=== PATIENT | male | born 1945 | race Caucasian/White ===

== ENCOUNTER 2021-01-19 09:23 | Outpatient (REF) | payer MEDICARE, SELFPAY ==
--- NOTE | 2021-01-19 09:27 | EMG_ITS ---
Bilateral median and ulnar motor and sensory studies were performed. Bilateral radial sensory studies were performed and paraspinal muscles were tested. IMPRESSION: 1. [id number] bilateral median neuropathy across carpal tunnel. 2. Mild left ulnar neuropathy across cubital tunnel. MD GRACIELA Todd/CORTES / [id number]
== END 2021-01-19 09:24 | disposition home or self-care (01) ==
LOC: HO.NEURO 09:23
PROVIDERS: Visit Provider Internal Medicine
DX: R20.0 Anesthesia of skin (principal)
CPT/HCPCS: 95886; 95911

== ENCOUNTER → 2021-01-24 09:07 | Outpatient (REF) | payer MEDICARE, SELFPAY ==
--- NOTE | 2021-01-24 09:18 | CA_ITS ---
Transthoracic Echocardiogram Patient (Last, First, Middle): Edmundo Bullock J Gender: Male Date of : 1945 Age: 75 Procedure Date: 01/24/2021 Procedure Type: Transthoracic Echocardiogram Location: OP Height: 170.18 cm Weight: 104.33 kg BSA: 2.15 m2 Heart Rate: bpm BP: 130 / 78 mmHg Weather Forecaster: HOLLY Referring MD: Adebayo Plunkett MD Supervisor Braiding: Juan Hwang MD Symptoms: I10 - Essential (primary) hypertension Study Quality: Fair ECG Rhythm: Sinus Conclusions: - 1. Normal LV systolic function with possible pseudonormal filling pattern 2. At least moderate eccentric mitral regurgitation, could be underestimated due to the jet direction 3. Normal RV systolic pressure 4. No gross pericardial effusion Findings Left Ventricle Normal left ventricular size, thickness, and systolic function. The visually estimated ejection fraction is between 65-70%. Spectral Doppler is indicative of a pseudonormal filling pattern. Right Ventricle Normal right ventricular cavity size and systolic function. Atria The left atrium is likely dilated. There is no evidence of interatrial shunt. The right atrium is normal in size. Aortic Valve Normal aortic valve structure and function. There is no aortic valve stenosis. There is no aortic valve regurgitation. Mitral Valve There is mild anterior and posterior mitral leaflet thickening. There is moderate mitral valve regurgitation. The mitral regurgitation jet is directed anteriorly. There is no mitral valve stenosis. Pulmonic Valve The pulmonic valve is likely normal. Tricuspid Valve Likely normal tricuspid valve structure and function. There is trace tricuspid valve regurgitation. The right ventricular systolic pressure is normal. The right ventricular systolic pressure is 23 mmHg. Normal right atrial pressure. There is no evidence of pulmonary hypertension. Great Vessels All visible segments of the aorta are normal in size. The pulmonary artery was not well visualized. Venous The inferior vena cava is normal in size and collapses greater than 50% with inspiration. Pericardium/Pleural There is no evidence of pericardial effusion. Prior Study Comparison No prior study available for comparison. Recommendations, Care & Conclusions Consider a MIRZA if clinically appropriate. Measurements M-Mode Liner Measurements Normals - Women/Men IVSd: 1.48 0.6-0.9/0.6-1.0 cm LVIDd: 5.26 3.9-5.3/4.2-5.9 cm LVIDd Index: 2.45 1.9-3.2 cm/m2 LVIDs: 2.87 2.0-3.8 cm LVPWd: 1.13 0.6-0.9/0.6-1.0 cm LV Mass: 355.59 67-162/88-224g LV Mass Index: 165.39 43-95/49-115 g/m2 M-Mode Volumes LV EDV: 133.00 LV ESV: 31.40 2D Linear Measurements IVSd: 0.86 0.6-0.9/0.6-1.0 cm LVIDd: 5.41 3.9-5.3/4.2-5.9 cm LVIDd Index: 2.52 2.4-3.2/2.2-3.1 cm/m2 LVIDs: 3.01 2.0-3.6 cm LVPWd: 0.88 0.7-1.1 cm Ao Root: 2.90 2.1-3.5 cm LA Diam: 4.10 2.7-3.8/3.0-4.0 cm LAIDs Index: 1.91 1.5-2.3 cm/m2 LV Mass: 215.47 67-162/88-224 g LV Mass Index: 100.22 43-95/49-115 g/m2 LVOT Diam: 2.10 3.0+(-)1.3 cm 2D Systolic Function EF 4C: 73.40 >55% EF 2C: 56.70 >55% EF BiP: 66.60 >55% M-Mode Systolic Function FS: 45.40 27-47/25-43% LVEF: 76.40 >55% Mitral Valve MV Pk E: 1.34 MV PK A: 0.70 MV Decel Time: 217.00 E/A: 1.90 E'Lateral: 8.27 E'Medial: 7.51 E/E' Med: 17.80 E/E' Lat: 16.20 PHT: 64.00 MVA PHT: 3.44 Decel [place]: 6.17 Aortic Valve AoV Pk Oneil: 1.31 AoV Pk Grad: 7.00 LVOT LVOT Pk Oneil: 1.04 LVOT Mn Oneil: 0.65 LVOT VTI: 0.20 LVOT Pk Grad: 4.00 LVOT Mn Grad: 2.00 LVOT Diam: 2.10 LVOT Area: 3.46 Diastolic Function MV Pk E: 1.34 MV Pk A: 0.70 E/A: 1.90 E'Medial: 7.51 E/E' Med: 17.80 E' Laterial: 8.27 E/E' Lat: 16.20 Right Ventricle TAPSE (mm): 2.33 Tricuspid Valve TR Pk Oneil: 2.25 TR Pk Grad: 20.00 RA Press: 3.00 RVSP: 23.00 Great Vessels Aorta Ao Root-2D: 2.90 2.0-3.7 cm Ao Asc: 3.10 2.1-3.4 cm Updated in Other Vendor System with Status of Final Juan Hwang MD electronically signed on 01/25/2021 11:57:33 AM with status of Final
== END ==
LOC: HO.CARD 09:07
PROVIDERS: Visit Provider Internal Medicine
DX: I10 Essential (primary) hypertension (principal)
CPT/HCPCS: 93306

== ENCOUNTER 2021-03-02 08:55 | Outpatient (REF) | payer MEDICARE, SELFPAY ==
[2021-03-02 09:34] LABS: Hemoglobin 15.5 g/dl (14.0-18.0); Imm Gran Abs Auto 0.02 X10*3/uL (0.00-0.03); Imm Gran Pct Auto 0.4 % (0.0-0.4); MANUAL DIFF FLAG SCAN; PLT CLUMP 1; Red Cell Distribution Width 13.3 % (11.0-16.0); SCAN SMEAR FLAG 1
[2021-03-02 09:36] LABS: Basophils Percent Auto 0.6 % (0-2); Eosinophils Absolute Auto 0.1 X10*3/uL (0.0-0.4); Eosinophils Percent Auto 2.3 % (0-4); Hematocrit 45.9 % (42-52); Lymphocytes Absolute Auto 1.8 X10*3/uL (1.2-4.9); Lymphocytes Percent Auto 36.5 % (20-40); Mean Corpuscular HGB Conc 33.8 g/dl (31.0-36.0); Mean Corpuscular Volume 94.6 fL (80-98); Mean Platelet Volume 9.9 fL (9.4-12.4); Monocytes Absolute Auto 0.5 X10*3/uL (0.1-1.2); Monocytes Percent Auto 9.8 % (2-11); Neutrophils Absolute Auto 2.4 X10*3/uL (2.0-8.3); Neutrophils Percent Auto 50.4 % (45-73); Platelet Count 129 X10*3/uL (160-400); Red Blood Count 4.85 X10*6/uL (4.60-5.80); White Blood Count 4.8 X10*3/uL (4.8-10.8)
[2021-03-02 09:41] LABS: Estimated Average Glucose 117 mg/dL; Hemoglobin A1c % 5.7 %
[2021-03-02 09:54] LABS: Alanine Aminotransferase 37 U/L (0-40); Albumin Level 4.2 g/dL (3.5-5.0); Alkaline Phosphatase 72 U/L (39-117); Anion Gap 12 (12-20); Aspartate Amino Transferase 29 U/L (5-37); Bilirubin Total 0.9 mg/dL (0.0-1.0); Blood Urea Nitrogen 11 mg/dL (9-16); Calcium 9.4 mg/dL (8.4-10.2); Carbon Dioxide 29 mmol/L (22-29); Chloride 105 mmol/L (96-108); Cholesterol 208 mg/dL; Estimated Glomerular Filt Rate > 60; Glucose Random 117 mg/dL (60-115); HDL Cholesterol 37 mg/dL; LDL Cholesterol Calculated 119 mg/dl; Potassium 4.6 mmol/L (3.3-5.1); Sodium 141 mmol/L (135-145); Total Protein 6.8 g/dL (6.5-8.0); Triglycerides 264 mg/dL
[2021-03-02 10:15] LABS: Free T4 (Free Thyroxine) 1.01 ng/dL (0.71-1.85); Thyroid Stimulating Hormone 1.37 uIU/mL (0.32-4.0)
[2021-03-02 10:27] LABS: Folate 19.2 ng/mL (> or = 4.0); Vitamin B12 616 pg/mL (200-900)
== END 2021-03-02 08:56 | disposition home or self-care (01) ==
LOC: HO.LAB 08:55
PROVIDERS: PCP Internal Medicine; Visit Provider Internal Medicine
DX: E78.00 Pure hypercholesterolemia, unspecified (principal); R73.02 Impaired glucose tolerance (oral); I10 Essential (primary) hypertension
CPT/HCPCS: 36415; 80053; 80061; 82607; 82746; 83036; 84439; 84443; 85025

== ENCOUNTER 2022-01-10 10:53 | Outpatient (REF) | payer MEDICARE, SELFPAY ==
[2022-01-10 13:46] LABS: MANUAL DIFF FLAG NO
[2022-01-10 13:52] LABS: Basophils Percent Auto 0.8 % (0-2); Eosinophils Absolute Auto 0.1 X10*3/uL (0.0-0.4); Eosinophils Percent Auto 1.6 % (0-4); Hematocrit 45.5 % (42.0-52.0); Imm Gran Abs Auto 0.02 X10*3/uL (0.00-0.03); Imm Gran Pct Auto 0.4 % (0.0-0.4); Lymphocytes Absolute Auto 1.3 X10*3/uL (1.2-4.9); Lymphocytes Percent Auto 25.7 % (20-40); Mean Corpuscular Hemoglobin 31.6 pg (27.0-33.0); Mean Corpuscular Volume 95.8 fL (80.0-98.0); Mean Platelet Volume 10.4 fL (9.4-12.4); Monocytes Absolute Auto 0.4 X10*3/uL (0.1-1.2); Neutrophils Absolute Auto 3.1 x10*3/uL (2.0-8.3); Neutrophils Percent Auto 63.5 % (45-73); Platelet Count 126 X10*3/uL (160-400); Red Blood Count 4.75 X10*6/uL (4.60-5.80); Red Cell Distribution Width 13.2 % (11.0-16.0); White Blood Count 4.9 X10*3/uL (4.8-10.8)
[2022-01-10 14:13] LABS: Estimated Average Glucose 126 mg/dL
[2022-01-10 14:31] LABS: Alanine Aminotransferase 30 U/L (0-40); Albumin Level 4.2 g/dL (3.5-5.0); Alkaline Phosphatase 68 U/L (39-117); Aspartate Amino Transferase 22 U/L (5-37); Bilirubin Total 0.7 mg/dL (0.0-1.0); Blood Urea Nitrogen 15 mg/dL (9-16); Calcium 8.9 mg/dL (8.4-10.2); Cholesterol 174 mg/dL; Estimated Glomerular Filt Rate > 60; Glucose Random 126 mg/dL (60-115); HDL Cholesterol 35 mg/dL; LDL Cholesterol Calculated 97 mg/dl; Total Protein 6.7 g/dL (6.5-8.0); Triglycerides 212 mg/dL
[2022-01-10 14:40] LABS: Thyroid Stimulating Hormone 0.62 uIU/mL (0.32-4.0)
[2022-01-10 14:44] LABS: Anion Gap 11 (12-20); Carbon Dioxide 27 mmol/L (22-29); Chloride 105 mmol/L (96-108); Potassium 4.6 mmol/L (3.3-5.1); Sodium 138 mmol/L (135-145)
== END 2022-01-10 10:54 | disposition home or self-care (01) ==
LOC: HO.10HDL 10:53
PROVIDERS: Visit Provider Internal Medicine
DX: G56.03 Carpal tunnel syndrome, bilateral upper limbs (principal); I10 Essential (primary) hypertension; R73.02 Impaired glucose tolerance (oral); E78.00 Pure hypercholesterolemia, unspecified
CPT/HCPCS: 36415; 80053; 80061; 83036; 84439; 84443; 85025; 99202

== ENCOUNTER 2022-01-29 08:50 | Day surgery (SDC) | payer MEDICARE, SELFPAY ==
[2022-01-29 09:13] VITALS: BP 136/67; PULSE 91; RESP 18; TEMP 36.4; O2SAT 98; BMI 36.0
[2022-01-29 11:30] VITALS: BP 136/86; PULSE 79; RESP 16; TEMP 36.5; O2SAT 96
--- NOTE | 2022-01-29 11:34 | MHC.SHP ---
Pre-Procedural Eval Section A Date of Service: 01/29/22 The patient is an INPATIENT: No Changes since office visit: No Cold of Flu in the past 2 weeks, No New Medical Problems, No Changes in Medication and No Patient answered all questions The History & Physical has been completed within 30 days and I have reviewed it.: Yes Section B Chief Complaint: Carpal tunnel syndrome, right upper limb Allergies: Allergies Allergy/AdvReac Type Severity Reaction Status Date / Time No Known Allergies Allergy Verified 01/10/22 10:01 Plan I have reviewed the history and physical and performed a pertinent physical examination on my patient. No changes have occurred unless specified.
--- NOTE | 2022-01-29 11:35 | W.PM.OPN ---
Operative Note Operative Note Date of Service: 01/29/22 Narrative: Preop diagnosis: 1. right Carpal tunnel syndrome Postop diagnosis: same Procedure: 1. right Carpal tunnel release Surgeon: Libertad Phoenix MD Anesthesia: local block using 1% lidocaine with epinephrine Findings: Thickened transverse carpal ligament. EBL: Less than 5 mL Specimens: None Complications: None Disposition: Brought to recovery room in stable condition Plan: Follow-up for 10-14 days for wound check and suture removal Indications: The patient is 76 years old, with right carpal tunnel syndrome that has been unresponsive to nonoperative management. The risks and benefits of operative treatment including but not limited to risk of damage to blood vessels, nerves, tendons, infection, persistent pain, persistent symptoms, or possible need for additional surgery were discussed with the patient and the patient wishes to proceed with surgery. Procedure: Once consent was obtained a local block was performed using a combination of 1% lidocaine with epinephrine. The patient was then brought back to the operating suite and placed on the operative table in supine position. A tourniquet was applied to the proximal aspect of the right upper extremity and the limb was prepped and draped in a standard surgical fashion. Once assured that we had a good block, a 1.5 cm longitudinal incision was made centered over the carpal tunnel. The incision was made through the skin to the subcutaneous tissues using a #15 blade. Dissection was made down to the level of the transverse carpal ligament with care being taken to protect the palmar cutaneous nerve. Once the transverse carpal ligament was clearly visualized, a longitudinal incision was made in the transverse carpal ligament 1st using a #15 blade, then using tenotomy scissors under direct visualization. Care was taken to look for and protect the motor branch of the median nerve when seen in this area. Once satisfied with our carpal tunnel release the wound was copiously irrigated with normal saline and hemostasis was obtained with a brief period of local pressure. The skin edges were reapproximated with some 5.0 nylon suture material and a sterile dressing was applied. The patient appears to have tolerated the procedure well and with no complications. All digits were well vascularized at the conclusion of the case.
== END 2022-01-29 11:42 | disposition home or self-care (01) ==
PROVIDERS: PCP Internal Medicine; Visit Provider Orthopaedic Surgery
PROC: (CPT 64721; principal; 2022-01-29 10:10)
DX: G56.01 Carpal tunnel syndrome, right upper limb (principal); R20.0 Anesthesia of skin; E78.00 Pure hypercholesterolemia, unspecified; I10 Essential (primary) hypertension; E66.9 Obesity, unspecified; Z68.36 Body mass index [BMI] 36.0-36.9, adult; D69.6 Thrombocytopenia, unspecified; E55.9 Vitamin D deficiency, unspecified; Z87.891 Personal history of nicotine dependence; Z79.899 Other long term (current) drug therapy
CPT/HCPCS: 64721; J0171

== ENCOUNTER → 2022-03-06 12:08 | Outpatient (BNVA) | payer MEDICARE, SELFPAY | PROVIDERS: PCP Internal Medicine; Visit Provider Orthopaedic Surgery | DX: G56.02 Carpal tunnel syndrome, left upper limb (principal); G56.01 Carpal tunnel syndrome, right upper limb | CPT/HCPCS: 99212 ==

== ENCOUNTER 2022-03-29 06:54 | Day surgery (SDC) | payer MEDICARE, SELFPAY ==
[2022-03-22 13:26] VITALS: BMI 37.5
--- NOTE | 2022-03-29 09:50 | MHC.SHP ---
Pre-Procedural Eval Section A Date of Service: 03/29/22 The patient is an INPATIENT: No Changes since office visit: No Cold of Flu in the past 2 weeks, No New Medical Problems, No Changes in Medication and No Patient answered all questions The History & Physical has been completed within 30 days and I have reviewed it.: Yes Section B Chief Complaint: carpal tunnel Allergies: Allergies Allergy/AdvReac Type Severity Reaction Status Date / Time No Known Allergies Allergy Verified 03/06/22 12:16 Plan I have reviewed the history and physical and performed a pertinent physical examination on my patient. No changes have occurred unless specified.
--- NOTE | 2022-03-29 09:50 | W.PM.OPN ---
Operative Note Operative Note Date of Service: 03/29/22 Narrative: Preop diagnosis: 1. Left Carpal tunnel syndrome Postop diagnosis: same Procedure: 1. left Carpal tunnel release Surgeon: Libertad Phoenix MD Anesthesia: local block using 1% lidocaine with epinephrine Findings: Thickened transverse carpal ligament. EBL: Less than 5 mL Specimens: None Complications: None Disposition: Brought to recovery room in stable condition Plan: Follow-up for 10-14 days for wound check and suture removal Indications: The patient is a 76 years old, with left carpal tunnel syndrome that has been unresponsive to nonoperative management. The risks and benefits of operative treatment including but not limited to risk of damage to blood vessels, nerves, tendons, infection, persistent pain, persistent symptoms, or possible need for additional surgery were discussed with the patient and the patient wishes to proceed with surgery. Procedure: Once consent was obtained a local block was performed using a combination of 1% lidocaine with epinephrine. The patient was then brought back to the operating suite and placed on the operative table in supine position. A tourniquet was applied to the proximal aspect of the left upper extremity and the limb was prepped and draped in a standard surgical fashion. Once assured that we had a good block, a 2.0 cm longitudinal incision was made centered over the carpal tunnel. The incision was made through the skin to the subcutaneous tissues using a #15 blade. Dissection was made down to the level of the transverse carpal ligament with care being taken to protect the palmar cutaneous nerve. Once the transverse carpal ligament was clearly visualized, a longitudinal incision was made in the transverse carpal ligament 1st using a #15 blade, then using tenotomy scissors under direct visualization. Care was taken to look for and protect the motor branch of the median nerve when seen in this area. Once satisfied with our carpal tunnel release the wound was copiously irrigated with normal saline and hemostasis was obtained with a brief period of local pressure. The skin edges were reapproximated with some 5.0 nylon suture material and a sterile dressing was applied. The patient appears to have tolerated the procedure well and with no complications. All digits were well vascularized at the conclusion of the case.
[2022-03-29 10:13] VITALS: BP 177/92; PULSE 66; RESP 18
== END 2022-03-29 10:14 | disposition home or self-care (01) ==
PROVIDERS: PCP Internal Medicine; Visit Provider Orthopaedic Surgery
PROC: (CPT 64721; principal; 2022-03-29 12:20)
DX: G56.02 Carpal tunnel syndrome, left upper limb (principal); R20.0 Anesthesia of skin; E78.00 Pure hypercholesterolemia, unspecified; I10 Essential (primary) hypertension; D69.6 Thrombocytopenia, unspecified; E55.9 Vitamin D deficiency, unspecified; E66.9 Obesity, unspecified; Z68.37 Body mass index [BMI] 37.0-37.9, adult; Z87.891 Personal history of nicotine dependence
CPT/HCPCS: 64721; J0171

== ENCOUNTER 2022-07-04 05:42 | Emergency (ER) | payer MEDICARE, SELFPAY ==
--- NOTE | ~2022-07-04 | XR_ITS ---
EXAMINATION: XR CHEST CLINICAL INFORMATION: Wheezing COMPARISON: None TECHNIQUE: Frontal view of the chest was obtained. FINDINGS: Normal symmetric lung volumes. Streaky opacity in the medial segment of the middle lobe. No pleural effusion. No pneumothorax. Cardiomediastinal silhouette and pulmonary vascularity are within normal limits. No acute osseous abnormalities. XR/XR chest 1V IMPRESSION: Streaky middle lobe opacity, potentially subsegmental atelectasis or less likely infiltrate
[2022-07-04 05:48] VITALS: BP 158/76; PULSE 99; RESP 18; TEMP 37.7; O2SAT 93; BMI 35.2
[2022-07-04 06:17] LABS: MANUAL DIFF FLAG NO
[2022-07-04 06:27] LABS: Basophils Percent Auto 0.4 % (0-2); Eosinophils Absolute Auto 0.1 X10*3/uL (0.0-0.4); Eosinophils Percent Auto 1.5 % (0-4); Hematocrit 46.7 % (42.0-52.0); Hemoglobin 15.4 g/dl (14.0-18.0); Imm Gran Abs Auto 0.02 X10*3/uL (0.00-0.03); Imm Gran Pct Auto 0.4 % (0.0-0.4); Lymphocytes Absolute Auto 0.5 X10*3/uL (1.2-4.9); Lymphocytes Percent Auto 9.6 % (20-40); Mean Corpuscular Hemoglobin 31.6 pg (27.0-33.0); Mean Corpuscular Volume 95.7 fL (80.0-98.0); Mean Platelet Volume 9.7 fL (9.4-12.4); Monocytes Absolute Auto 0.8 X10*3/uL (0.1-1.2); Monocytes Percent Auto 15.3 % (2-11); Neutrophils Absolute Auto 3.9 x10*3/uL (2.0-8.3); Neutrophils Percent Auto 72.8 % (45-73); Platelet Count 112 X10*3/uL (160-400); Red Blood Count 4.88 X10*6/uL (4.60-5.80); Red Cell Distribution Width 13.4 % (11.0-16.0); White Blood Count 5.3 X10*3/uL (4.8-10.8)
[2022-07-04 06:35] LABS: Alanine Aminotransferase 34 U/L (0-40); Albumin Level 4.2 g/dL (3.5-5.0); Alkaline Phosphatase 80 U/L (39-117); Anion Gap 12 (12-20); Aspartate Amino Transferase 31 U/L (5-37); Bilirubin Total 0.6 mg/dL (0.0-1.0); Blood Urea Nitrogen 12 mg/dL (9-16); Calcium 9.2 mg/dL (8.4-10.2); Carbon Dioxide 28 mmol/L (22-29); Chloride 104 mmol/L (96-108); Creatinine Clr Calc Pharmacy 66.6; Estimated Glomerular Filt Rate > 60; Glucose Random 143 mg/dL (60-115); Potassium 4.7 mmol/L (3.3-5.1); Sodium 139 mmol/L (135-145); Total Protein 6.9 g/dL (6.5-8.0)
[2022-07-04 07:17] LABS: Influenza A PCR POSITIVE (Negative); Influenza B PCR NEGATIVE (Negative); Resp Syncy Virus RNA Qual PCR NEGATIVE (Negative); SARS COV2 PCR INHOUSE NEGATIVE (Negative)
--- NOTE | 2022-07-04 07:19 | PC.NURSE ---
c/o cough since 07/01. low grade fever (99.9-100.2 per patient). No distress noted. able to speak full sentences. course BS Ender. CXR pending along with resp panel. Skin P/W/D. Waiting to see .
[2022-07-04 07:26] VITALS: BP 177/78; PULSE 95; RESP 16; TEMP 38.6; O2SAT 94
--- NOTE | 2022-07-04 07:59 | ED_ITS ---
HPI - URI/Sore Throat General Chief Complaint: Upper Respiratory Symptoms Stated Complaint: hasnt slept 2 days, cough Time Seen by Provider: 07/04/22 07:14 Source: patient Mode of arrival: ambulatory History of Present Illness HPI Narrative: 76-year-old male with positive sick contacts with grand kids and having symptoms of body aches, headaches, cough, fevers and chills for the past 3 days. Related Data Home Medications Medication Instructions Recorded Confirmed aspirin 81 mg tablet,delayed 81 mg PO DAILY 12/06/20 12/07/21 release (Adult Low Dose Aspirin) multivitamin 1 tab PO DAILY 12/06/20 12/07/21 naproxen sodium 220 mg tablet 220 mg PO BID PRN 12/06/20 12/07/21 (Aleve) Previous Rx's Medication Instructions Recorded atenolol 50 mg tablet 50 mg PO DAILY 90 days #90 tabs 10/10/21 benzonatate 200 mg capsule 200 mg PO TID PRN cough #14 caps 07/04/22 Allergies Allergy/AdvReac Type Severity Reaction Status Date / Time No Known Allergies Allergy Verified 04/11/22 14:13 Review of Systems Review of Systems: Pertinent positives and negatives as stated in HPI PMFSH Past Medical History Source: nursing notes reviewed Medical History Hypercholesterolemia Hypertension Obesity (BMI 30-39.9) Thrombocytopenia Vitamin D deficiency Surgical History History of cholecystectomy History of excision of pilonidal cyst History of inguinal hernia repair Family History Family History Father Cancer Mother No problems noted. Sister Breast cancer Son In good health Social History Social History Housing: House Alcohol intake: current Alcohol intake frequency: a few times a month Patient Tobacco Use Status: Former Tobacco user Years Smoked: 34 years old stopped e-Cigarette/Vaping Use: Never Used Second Hand Smoke Exposure: No Advance Directives: No Advance Directives Information Provided: Yes service: No Current occupational status: retired Current occupation: rt hand Cognitive needs: No Hearing needs: No Vision needs: Yes Physical Exam Vital Signs: Vital Signs: Last Vital Signs Temp 101.4 F H 07/04/22 07:26 Pulse 95 07/04/22 07:26 Resp 16 07/04/22 07:26 BP 177/78 H 07/04/22 07:26 Pulse Ox 94 07/04/22 07:26 O2 Del Method 07/04/22 07:26 BMI result Body Mass Index 35.2 VITAL SIGNS: Reviewed. GENERAL: Well developed, well nourished, in no acute distress. HEAD: Normocephalic/atraumatic EYES: PERRLA, EOMI EARS: Ext canals without abnormality, TMs non-bulging and non-erythematous NOSE: Nares patent bilateral OROPHARYNX: no oral lesions noted, posterior pharynx clear and non-erythematous without noted tonsillar enlargement/erythema/exudates NECK: Supple, no adenopathy LUNGS: Good inspiratory effort with crackles but no expiratory wheeze noted and mild tachypnea. SpO2<94> CARDIOVASCULAR: Regular rate and rhythm without noted murmurs, no JVD or lower extremity edema. ABDOMEN: Soft, non-tender, non-distended with bowel sounds. MUSCULOSKELETAL: No tenderness, deformities, or effusions noted on gross inspection. EXTREMITIES: No cyanosis, clubbing or edema. SKIN: Inspection of the skin reveals no rashes NEUROLOGIC: Alert and oriented x 4. Strength and sensation to light touch were grossly intact x 4. Medical Decision Making Medical Decision Making [facility] Narrative: 76-year-old male with history and clinical presentation most consistent with viral illness and doubt pneumonia. On review of all investigations patient has no leukocytosis or left shift, chemistries demonstrate normal findings, viral testing is positive for flu but he is outside of window to knee she Tamiflu. Chest x-ray is consistent with atelectasis. Patient was counseled on the use of Tylenol and ibuprofen for body aches, headaches, fevers greater than 100.4. He was also counseled on sleeping in a reclined instead of flat position to help decrease the amount of nighttime cou ghing. He was also instructed to stop using decongestants around normal sleep time. Differential Diagnosis Viral, pneumonia Lab Data [facility] Lab Attestation statement: I reviewed the patient's lab results. Please see above for discussion Result Diagrams: 07/04/22 06:13 07/04/22 06:13 Labs: Lab Results 1207/04/22 07/04/22 Range/Units 06:13 06:13 06:13 WBC 5.3 (4.8-10.8) X10*3/uL RBC 4.88 (4.60-5.80) X10*6/uL Hgb 15.4 (14.0-18.0) g/dl Hct 46.7 (42.0-52.0) % MCV 95.7 (80.0-98.0) fL MCH 31.6 (27.0-33.0) pg MCHC 33.0 (31.0-36.0) g/dl RDW 13.4 (11.0-16.0) % Plt Count 112 L (160-400) X10*3/uL MPV 9.7 (9.4-12.4) fL Immature Gran % (Auto) 0.4 (0.0-0.4) % Neut % (Auto) 72.8 (45-73) % Lymph % (Auto) 9.6 L (20-40) % [place] % (Auto) 15.3 H (2-11) % Eos % (Auto) 1.5 (0-4) % Baso % (Auto) 0.4 (0-2) % Lymph # (Auto) 0.5 L (1.2-4.9) X10*3/uL [place] # (Auto) 0.8 (0.1-1.2) X10*3/uL Eos # (Auto) 0.1 (0.0-0.4) X10*3/uL Baso # (Auto) 0.0 (0.0-0.2) X10*3/uL Abs Immat Gran (auto) 0.02 (0.00-0.03) X10*3/uL Absolute Neuts (auto) 3.9 (2.0-8.3) x10*3/uL Absolute Nucleated RBC 0.000 (0.0-0.012) X10*3/uL Nucleated RBC % (auto) 0.0 (0.0-0.2) /100WBC Sodium 139 (135-145) mmol/L Potassium 4.7 (3.3-5.1) mmol/L Chloride 104 (96-108) mmol/L Carbon Dioxide 28 (22-29) mmol/L Anion Gap 12 (12-20) BUN 12 (9-16) mg/dL Creatinine 1.09 (0.5-1.4) mg/dL Estim Creat Clear Calc 66.6 Estimated GFR > 60 Random Glucose 143 H (60-115) mg/dL Calcium 9.2 (8.4-10.2) mg/dL Total Bilirubin 0.6 (0.0-1.0) mg/dL AST 31 D (5-37) U/L ALT 34 (0-40) U/L Alkaline Phosphatase 80 (39-117) U/L Total Protein 6.9 (6.5-8.0) g/dL Albumin 4.2 (3.5-5.0) g/dL Influenza Type A (PCR) POSITIVE A (Negative) Influenza Type B (PCR) NEGATIVE (Negative) RSV RNA Qual (PCR) NEGATIVE (Negative) SARS-CoV-2 RNA (RT-PCR) NEGATIVE (Negative) Radiology Impression Radiologist Impression: My interpretation is in agreement with the radiologist's impression of imaging. External Record Review External record reviewed: Outpatient record and Prior outpatient labs Chronic Conditions Patient?s care impacted by: Hypertension Discharge Plan Discharge Clinical Impression: Viral syndrome, Influenza A Patient Disposition: Home, Self-Care Instructions: Influenza (ED), Viral Syndrome (ED) Additional Instructions: 1. You have been diagnosed with influenza a but you are out of the window for initiation Tamiflu. 2. I sent a prescription for Tessalon, this medication is used for cough control, but you should still drink plenty of fluids, continue to use a cool mist humidifier at bedside and sleep in a reclined position incentive a flat position. Continue to use Tylenol and ibuprofen for body aches, headaches, temperatures greater than 100.4. 3. Please follow-up with your primary care provider in the next 2-3 days for re- evaluation further outpatient management as indicated. Return to the ER for worsening symptoms. Prescriptions: New benzonatate 200 mg capsule 200 mg PO TID PRN (Reason: cough) Qty: 14 0RF No Action atenolol 50 mg tablet 50 mg PO DAILY 90 Days Qty: 90 2RF aspirin [Adult Low Dose Aspirin] 81 mg tablet,delayed release (DR/EC) 81 mg PO DAILY multivitamin Tablet 1 tab PO DAILY naproxen sodium [Aleve] 220 mg tablet 220 mg PO BID PRN Referrals: Po,Adebayo Otoole MD [Primary Care Provider] -
[2022-07-04] MEDS: Benzonatate 100 MG CAPSULE 200 MG PO (08:24)
[2022-07-04] MEDS: Acetaminophen 325 MG TABLET 975 MG PO (08:24)
[2022-07-04] MEDS: Ibuprofen 400 MG TABLET PO (08:26)
== END 2022-07-04 08:38 | disposition home or self-care (01) ==
PROVIDERS: Emergency Provider Student in an Organized Health Care Education/Training Program; PCP Internal Medicine
DX: J10.1 Influenza due to other identified influenza virus with other respiratory manifestations (principal); R05.9 Cough, unspecified; Z20.822 Contact with and (suspected) exposure to COVID-19; Z79.899 Other long term (current) drug therapy
CPT/HCPCS: 0241U; 71045; 80053; 85025; 99283

== ENCOUNTER 2022-07-17 14:21 | Outpatient (REF) | payer MEDICARE, SELFPAY ==
--- NOTE | ~2022-07-17 | XR_ITS ---
EXAMINATION: XR CHEST CLINICAL INFORMATION: R05.9 - Cough, unspecified COMPARISON: Chest radiographs 07/04/2022 TECHNIQUE: 2 views of the chest were obtained. FINDINGS: No airspace consolidation or groundglass opacity or effusion. No hyperinflation. Heart within limits of normal size. Vascularity normal. Mild coarsening bronchiolar markings similar to prior study. Hilar and mediastinal contours and bony structures are stable. XR/XR chest 2V IMPRESSION: No acute intrathoracic disease.
== END 2022-07-17 14:22 | disposition home or self-care (01) ==
LOC: HO.XRAY 14:21
PROVIDERS: PCP Internal Medicine; Visit Provider Internal Medicine
DX: R05.9 Cough, unspecified (principal)
CPT/HCPCS: 71046

== ENCOUNTER 2022-07-23 04:11 | Emergency (ER) | payer MEDICARE, SELFPAY ==
--- NOTE | ~2022-07-23 | XR_ITS ---
EXAMINATION: XR CHEST CLINICAL INFORMATION: Rule out pneumonia COMPARISON: 07/17/2022 TECHNIQUE: Frontal view of the chest was obtained. FINDINGS: The lungs are well expanded. There is no focal consolidation, edema, or effusion. No pneumothorax. The cardiomediastinal silhouette is within normal limits. No acute osseous abnormality. Mild degenerative change throughout the spine. XR/XR chest 1V IMPRESSION: No acute pulmonary disease.
[2022-07-23 04:14] VITALS: BP 156/78; PULSE 87; RESP 20; TEMP 36.1; O2SAT 97; BMI 36.0
[2022-07-23 04:23] VITALS: BP 146/72; PULSE 76; RESP 20; TEMP 36.9; O2SAT 96
[2022-07-23 04:44] VITALS: O2SAT 94
[2022-07-23 04:49] LABS: COVID-19 Test Negative (Negative); IDNOW Serial# 16C4AD1C; IDNOW Serial# BCCEAD1C; Influenza A Negative (Negative); Influenza B2 Negative (Negative)
--- NOTE | 2022-07-23 04:59 | ED.URI ---
HPI - URI/Sore Throat General Chief Complaint: Upper Respiratory Symptoms Stated Complaint: unable to sleep, here previously Time Seen by Provider: 07/23/22 04:35 Source: patient Mode of arrival: ambulatory Limitations: no limitations History of Present Illness HPI Narrative: Patient comes to the emergency room complaining of cough for 3 weeks. Patient was diagnosed with influenza approximately 3 weeks ago, since then he has been having a lot of coughing. Patient came today because he had a coughing fit and his got concerned and made him come to the emergency room. Patient states that he has tried [id number] Mucinex, prescribed Tessalon Perles without any improvement. Patient has also tried multiple home remedies but patient keeps coughing. Patient denies any fever chills, no chest pain or shortness of breath. Related Data Home Medications Medication Instructions Recorded Confirmed aspirin 81 mg tablet,delayed 81 mg PO DAILY 12/06/20 12/07/21 release (Adult Low Dose Aspirin) multivitamin 1 tab PO DAILY 12/06/20 12/07/21 naproxen sodium 220 mg tablet 220 mg PO BID PRN 12/06/20 12/07/21 (Aleve) Previous Rx's Medication Instructions Recorded atenolol 50 mg tablet 50 mg PO DAILY 90 days #90 tabs 07/11/22 benzonatate 200 mg capsule 200 mg PO TID PRN cough #14 caps 07/17/22 azithromycin 250 mg tablet See Rx Instructions PO .COMPLEX #6 07/23/22 tabs Allergies Allergy/AdvReac Type Severity Reaction Status Date / Time No Known Allergies Allergy Verified 07/23/22 04:20 Review of Systems Review of Systems: Constitutional : No Weight loss, No Fever, No Chills, No Night Sweats, No Fatigue, No Malaise ENT/Mouth : No Hearing loss, No Ear Pain, No Nasal Congestion, No Sinus Pain, No Hoarseness, No sore throat, No Rhinorrhea, No Swallowing Difficulty Eyes: No Eye Pain, No Swelling, No Redness, No Foreign Body, No Discharge, No Vision Changes Cardiovascular : No Chest Pain, No SOB, No Dyspnea on Exertion, No Orthopnea, No Edema, No Palpitations Respiratory : Complaining of cough with sputum, No Wheezing, No Smoke Exposure, No Dyspnea Gastrointestinal : No Nausea, No Vomiting, No Diarrhea, No Constipation, No abdominal Pain, No Hematochezia, No Melena Genitourinary : no irregular bleeding, No Dysuria, No Urinary Frequency, No Hematuria, No Urinary Incontinence, No Urgency, No Flank Pain, No Urinary Flow Changes, No Hesitancy Musculoskeletal : No joint pain, No Myalgias, No Joint Swelling Skin : No Skin Lesions, No rash Neuro : No Weakness, No Numbness, No Paresthesias, No Loss of Consciousness, No Dizziness, No Headache Psych : No Anxiety/Panic, No Depression, No SI/HI/AH/VH, No Social Issues, Heme/Lymph: No Bruising, No Bleeding,No Lymphadenopathy Endocrine : No Polyuria, No Polydipsia, No Temperature Intolerance [facility] Past Medical History Medical History Hypercholesterolemia Hypertension Obesity (BMI 30-39.9) Thrombocytopenia Vitamin D deficiency Surgical History History of cholecystectomy History of excision of pilonidal cyst History of inguinal hernia repair Family History Family History Father Cancer Mother No problems noted. Sister Breast cancer Son In good health Social History Social History Housing: House Alcohol intake: current Alcohol intake frequency: other Alcohol type: beer Patient Tobacco Use Status: Former Tobacco user Years Smoked: 34 years old stopped Smoked in Last 30 Days: No e-Cigarette/Vaping Use: Never Used Second Hand Smoke Exposure: No Use of substances other than those prescribed or required for medical reasons: No Advance Directives: No Advance Directives Information Provided: No service: No Current occupational status: retired Current occupation: rt hand Cognitive needs: No Hearing needs: No Vision needs: Yes Physical Exam Vital Signs: Vital Signs: Last Vital Signs Temp 98.5 F 07/23/22 04:23 Pulse 76 07/23/22 04:23 Resp 20 07/23/22 04:23 BP 146/72 H 07/23/22 04:23 Pulse Ox 94 07/23/22 04:44 O2 Del Method 07/23/22 04:44 BMI result Body Mass Index 36.0 Const: Other: Appearance: Alert. Oriented X3. No acute distress. Eyes: Pupils equal, round and reactive to light. ENT: Pharynx normal. Neck: Normal inspection. Neck supple. No lymph nodes noted. No crepitus CVS: Normal heart rate and rhythm. Pulses normal. Normal S1 and S2 Respiratory: No respiratory distress. Bilateral minimal rales, no wheezing, no crackles. Good air movement. Abdomen: Soft and nontender. No rigidity. No distention. Skin: Skin warm and dry. Normal skin color. Normal skin turgor. Extremities: No lower extremity edema. No Lacerations. No Rash Neuro: Oriented X 3. No motor deficit. No sensory deficit. Moving all extremities. No slurred speech. CN 2 through 12 grossly intact Psych: calm, cooperative, normal affect Course Course Course Narrative: Patient's chest x-ray is pending as well as his serology tests. - Medical Decision Making Medical Decision Making [facility] Narrative: -patient's chest x-ray is negative, serology is negative for influenza and COVID. -the states that the patient's cough keeps getting worse -patient has a very wet cough Lab Data Labs: Lab Results 07/23/22 07/23/22 Range/Units 04:27 04:27 COVID-19 (ANISHA) Negative (Negative) COVID-19 Clin Com See Note Influenza Type A (SEAN) Negative (Negative) Influenza Type B (SEAN) Negative (Negative) Influenza A & B Note See Note Independent Interpretation I performed an independent interpretation of an: Plain X-Ray (My interpretation of the x-ray No infiltrates) Radiology Impression Discussion of test interpretation with radiology: I have reviewed the radiologist's reading. Radiologist Impression: FINDINGS: The lungs are well expanded. There is no focal consolidation, edema, or effusion. No pneumothorax. The cardiomediastinal silhouette is within normal limits. No acute osseous abnormality. Mild degenerative change throughout the spine. XR/XR chest 1V IMPRESSION: No acute pulmonary disease. ? Discharge Plan Discharge Clinical Impression: Bronchitis Patient Disposition: Home, Self-Care Instructions: Acute Bronchitis (ED) Additional Instructions: Please follow-up with your primary care physician tomorrow. If you have any worsening or new symptoms, please return to the emergency room or call 911 Prescriptions: New azithromycin 250 mg tablet See Rx Instructions .ROUTE .COMPLEX Qty: 6 0RF Rx Instructions: For 250 mg dose pack: take 500 mg today (day 1), then 250 mg for 4 days (days 2-5) No Action atenolol 50 mg tablet 50 mg PO DAILY 90 Days Qty: 90 2RF benzonatate 200 mg capsule 200 mg PO TID PRN (Reason: cough) Qty: 14 0RF aspirin [Adult Low Dose Aspirin] 81 mg tablet,delayed release (DR/EC) 81 mg PO DAILY multivitamin Tablet 1 tab PO DAILY naproxen sodium [Aleve] 220 mg tablet 220 mg PO BID PRN
== END 2022-07-23 05:42 | disposition home or self-care (01) ==
PROVIDERS: Emergency Provider Emergency Medicine; PCP Internal Medicine
DX: J40 Bronchitis, not specified as acute or chronic (principal); Z87.891 Personal history of nicotine dependence; Z20.822 Contact with and (suspected) exposure to COVID-19
CPT/HCPCS: 71045; 87502; 87635; 99283; 99284

== ENCOUNTER 2022-09-20 15:54 | Outpatient (REF) | payer MEDICARE, SELFPAY ==
--- NOTE | 2022-09-20 17:08 | PFT_ITS ---
FLOWS: 1. FEV1 100% of predicted at 2.64 L. 2. FVC 95% of predicted at 3.36 L. 3. FEV1 to FVC ratio 0.79. 4. No bronchodilator response. LUNG VOLUMES: 1. Total lung capacity 88% of predicted at 5.55 L. 2. Residual volume 106% of predicted at 2.50 L. 3. Slow vital capacity 78% of predicted at 3.05 L. 4. Expiratory reserve volume 20% of predicted at 0.20 L. 5. Diffusion capacity is normal. IMPRESSION: No obstructive or restrictive ventilatory defect. No bronchodilator response. Decreased expiratory reserve volume suggests extrathoracic restriction likely secondary to abdominal obesity. Remington Schumacher MD AP/MODL / [id number]
== END 2022-09-20 15:55 | disposition home or self-care (01) ==
LOC: HO.RESP 15:54
PROVIDERS: PCP Internal Medicine; Visit Provider Internal Medicine
DX: R05.9 Cough, unspecified (principal)
CPT/HCPCS: 94060; 94727; 94729

== ENCOUNTER → 2022-11-14 09:54 | Outpatient (BNVA) | payer MEDICARE, SELFPAY | PROVIDERS: PCP Internal Medicine; Visit Provider Internal Medicine | DX: R05.9 Cough, unspecified (principal); J45.909 Unspecified asthma, uncomplicated | CPT/HCPCS: 99202 ==

== ENCOUNTER 2022-12-12 10:08 | Outpatient (REF) | payer MEDICARE, SELFPAY ==
--- NOTE | ~2022-12-12 | XR_ITS ---
EXAMINATION: XR KNEE AP STANDING CLINICAL INFORMATION: Other instability, unspecified knee Pain COMPARISON: None available. TECHNIQUE: AP bilateral standing view of the knees was obtained. FINDINGS: The bones are intact. No fracture. Alignment is anatomic. There is moderate to marked narrowing of the medial joint compartment of the left knee with associated small marginal osteophytes. There is mild narrowing of the medial joint compartment of the right knee. Small calcific densities noted adjacent to the proximal left fibula. XR/XR knee standing BI IMPRESSION: 1. Moderate to marked osteoarthritis of the medial joint compartment of the left knee. 2. Mild osteoarthritis of the medial joint compartment of the right knee.
[2022-12-12 10:56] LABS: MANUAL DIFF FLAG NO
[2022-12-12 11:28] LABS: Basophils Percent Auto 0.6 % (0-2); Eosinophils Absolute Auto 0.1 X10*3/uL (0.0-0.4); Eosinophils Percent Auto 1.8 % (0-4); Hematocrit 47.2 % (42.0-52.0); Hemoglobin 15.5 g/dl (14.0-18.0); Imm Gran Abs Auto 0.02 X10*3/uL (0.00-0.03); Imm Gran Pct Auto 0.4 % (0.0-0.4); Lymphocytes Absolute Auto 1.5 X10*3/uL (1.2-4.9); Lymphocytes Percent Auto 28.9 % (20-40); Mean Corpuscular HGB Conc 32.8 g/dl (31.0-36.0); Mean Corpuscular Hemoglobin 31.4 pg (27.0-33.0); Mean Corpuscular Volume 95.7 fL (80.0-98.0); Mean Platelet Volume 9.7 fL (9.4-12.4); Monocytes Absolute Auto 0.5 X10*3/uL (0.1-1.2); Monocytes Percent Auto 10.7 % (2-11); Neutrophils Absolute Auto 2.9 x10*3/uL (2.0-8.3); Neutrophils Percent Auto 57.6 % (45-73); Platelet Count 127 X10*3/uL (160-400); Red Blood Count 4.93 X10*6/uL (4.60-5.80); Red Cell Distribution Width 13.3 % (11.0-16.0); White Blood Count 5.1 X10*3/uL (4.8-10.8)
[2022-12-12 12:07] LABS: Alanine Aminotransferase 42 U/L (0-40); Albumin Level 4.1 g/dL (3.5-5.0); Alkaline Phosphatase 72 U/L (39-117); Anion Gap 12 (12-20); Aspartate Amino Transferase 30 U/L (5-37); Blood Urea Nitrogen 12 mg/dL (9-16); Calcium 9.4 mg/dL (8.4-10.2); Carbon Dioxide 28 mmol/L (22-29); Chloride 106 mmol/L (96-108); Cholesterol 202 mg/dL; Estimated Glomerular Filt Rate > 60; Glucose Random 111 mg/dL (60-115); HDL Cholesterol 35 mg/dL; LDL Cholesterol Calculated 121 mg/dl; Potassium 4.8 mmol/L (3.3-5.1); Sodium 141 mmol/L (135-145); Total Protein 6.7 g/dL (6.5-8.0); Triglycerides 233 mg/dL
[2022-12-12 12:38] LABS: Folate 16.7 ng/mL (> or = 4.0); Free T4 (Free Thyroxine) 0.99 ng/dL (0.71-1.85); Thyroid Stimulating Hormone 0.84 uIU/mL (0.32-4.0); Vitamin B12 565 pg/mL (200-900)
== END 2022-12-12 10:09 | disposition home or self-care (01) ==
LOC: HO.LAB 10:08
PROVIDERS: PCP Internal Medicine; Visit Provider Internal Medicine
DX: R73.02 Impaired glucose tolerance (oral) (principal); E78.00 Pure hypercholesterolemia, unspecified; M25.362 Other instability, left knee; M25.361 Other instability, right knee
CPT/HCPCS: 36415; 73565; 80053; 80061; 82607; 82746; 84439; 84443; 85025

== ENCOUNTER 2023-01-30 10:21 | Outpatient (AMB) | payer MEDICARE, SELFPAY ==
[2023-01-30 10:39] VITALS: BMI 37.3
--- NOTE | 2023-01-30 10:39 | A.OFFVIS_ITS ---
Intake Vital Signs 01/30/23 10:39 Height 5 ft 7 in Weight 238 lb BMI 37.3 Intake Visit Reasons: New PRob- osteoarthritis, left knee Intake Note: Edmundo a 77 year old male who presents today for an evaluation of left knee. Patient reports pain started within the year with that gets worse with certain movements such as stair use and walking up and down an incline. States knee gave out once. His pain is located at the medial aspect of knee. Denies injury, numbness or tingling. No previous tx. Finds some support with a knee sleeve/brace. Finds little relief with Aleve, Tylenol and Motrin. Allergies No Known Allergies Allergy (Verified 01/30/23 10:57) Medication List - Last Reconciled 01/30/23 by Chadwick Crouch PA-C albuterol sulfate 90 mcg/actuation (Ventolin HFA) 2 puffs inhalation Q6H PRN aspirin (Adult Low Dose Aspirin) 81 mg PO DAILY atenolol 50 mg PO DAILY 90 days multivitamin 1 tab PO DAILY naproxen sodium (Aleve) 220 mg PO BID PRN HPI New PRob- osteoarthritis, left knee HPI Details 77-year-old male who presents to the office today for evaluation of left knee pain for about 1 year. He states he has pain in the medial aspect of his knee. His pain is aggravated with stair use and walking up and down the incline. He plays golf about once a week and is unable to walk the full course, he has to use a golft cart to get around. He also c/o his knee giving out once. He denies any numbness or tingling and has not had any treatment or injury in the past. He finds mild relief with Aleve, Tylenol and Motrin. He finds mild support with the use a knee brace. [facility] Medical History Annual physical exam Hypercholesterolemia Hypertension Obesity (BMI 30-39.9) Thrombocytopenia Vitamin D deficiency Surgical History History of cholecystectomy History of excision of pilonidal cyst History of inguinal hernia repair Family History Father Cancer Mother No problems noted. Sister Breast cancer Son In good health Social History Housing: House Alcohol intake: current Alcohol intake frequency: other Alcohol type: beer Patient Tobacco Use Status: Former Tobacco user Tobacco use type: Cigarette Years Smoked: 34 years old stopped e-Cigarette/Vaping Use: Never Used Second Hand Smoke Exposure: No service: No Current occupational status: retired Current occupation: rt hand Cognitive needs: No Hearing needs: No Vision needs: Yes Review of Systems Const All systems reviewed & are unremarkable except as noted in HPI and below Physical Exam Vital Signs: BMI result Body Mass Index 37.3 Const General: cooperative and no acute distress Orientation/consciousness: patient oriented x3 Resp Effort & Inspection: normal respiratory effort and able to speak in complete sentences Cardio Peripheral pulses: Peripheral pulses 2+ throughout Neuro General: patient oriented x3 Extrem Other: Left knee: Skin intact, no erythema or joint effusion. Tenderness along the medial joint line. Full ROM with crepitus. Negative Rivas?s. No ligamentous laxity. NVI. Office Procedures Joint Injection/Drain Joint Injection/Drain Primary Site: left knee Prep: site was prepped using aseptic technique, ethochloride spray was applied and injection warnings given Injected: 80 mg of, DepoMedrol, with 8 mL of, 1% plain lidocaine and in the joint Approach Used: anterolateral Procedure: The patient tolerated the procedure well and there was some relief with the local anesthesia Coding 25172 - Glenohumeral/Tronchanteric Bursa/Intraarticular Procedure code (CPT) selection complete Results Reviewed Results Reviewed: 01/30/23 11:07 Lidocaine HCl 2 % MPF [Xylocaine 2 % MPF] 5 ml .ROUTE .STK-MED ONE methylPREDNISolone acetate [DEPO-MedroL] 80 mg .ROUTE .STK-MED ONE Xrays were obtained in the office today and personally reviewed by me of the left knee : 1. Moderate osteoarthritis of the medial joint compartment of the left knee with PF oa Assessment & Plan Assessment & Plan (1) Osteoarthritis of left knee: Comment: Marked osteoarthritis left mild on the right December 2022 Code(s): M17.12 - Unilateral primary osteoarthritis, left knee Plan We discussed options today which include steroid injection. They did consent to move forward with the injection, which was tolerated well. I recommended rest, ice and elevation and OTC anti-inflammatories PRN for discomfort. I also gave him a handout of home exercises in the office today. If symptoms persist or worsens over the next 6-8 weeks, patient will contact the office, otherwise follow-up as needed. Orders: Orders XR knee LT 2V Today M25.562 - Pain in left knee Patient Instructions: Scribed for Chadwick Crouch PA-C, by Lele Cruz emergency medical tech, on 01/30/2023 at 10:30 AM SELVIN. Chadwick Hernandez PA-C, have personally reviewed and agree with the information entered by the scribe. Coding Level of Care Code Est Pt Level 3 (53889) Diagnoses Osteoarthritis of left knee M17.12 CPT Codes Coding - Joint 7: 40602 - Glenohumeral/Tronchanteric Bursa/Intraarticular ([id number])
== END 2023-01-30 11:15 | disposition home or self-care (01) ==
PROVIDERS: PCP Internal Medicine; Visit Provider Physician Assistant
DX: M17.12 Unilateral primary osteoarthritis, left knee (principal)
CPT/HCPCS: 20610; 99213

== ENCOUNTER 2023-01-30 11:41 | Outpatient (REF) | payer MEDICARE, SELFPAY ==
--- NOTE | ~2023-01-30 | XR_ITS ---
EXAMINATION: XR KNEE, LEFT CLINICAL INFORMATION: Reason for Exam M25.562 - Pain in left knee COMPARISON: Knee radiographs 12/12/2022 TECHNIQUE: 2 views of the knee FINDINGS: No acute fracture or dislocation. At least mild degenerative changes of the knee with patellofemoral compartment osteophytes.. No joint effusion. Soft tissues are unremarkable. XR/XR knee LT 2V IMPRESSION: * No acute osseous abnormality. * At least mild degenerative changes of the knee, joint space narrowing better appreciated on prior standing radiographs.
== END 2023-01-30 11:42 | disposition home or self-care (01) ==
LOC: HO.HOSX 11:41
PROVIDERS: Visit Provider Physician Assistant
DX: M17.12 Unilateral primary osteoarthritis, left knee (principal)
CPT/HCPCS: 20610; 73560; 99212; J1040

== ENCOUNTER 2023-03-07 07:16 | Outpatient (AMB) | payer MEDICARE, SELFPAY ==
--- NOTE | 2023-03-07 07:17 | MHC.PC.OV ---
Intake Visit Reasons: persistent cough Allergies No Known Allergies Allergy (Verified 03/07/23 07:18) Tobacco use date assessed: 09/11/22 Fall risk assessment: No Falls in past year Last assessed Fall Risk: 03/07/23 Dental Screening Dental Screen Date: 03/07/23 Did you have a dental visit in the last 12 months?: Yes Did you have a dental problem in the last 6 months where you did not have access to dental care?: No Was dental information given to patient?: Patient has dentist HPI HPI Comments History of Present Illness Details 77-year-old male past medical history significant for hypertension, vitamin-D deficiency, hypercholesteremia and impaired glucose tolerance. Patient Dr. Plunkett last seen in December. Patient presents today for a telehealth appointment for persisting cough. Patient reports presisent cough since 2021 when he had the FLU. DEnies fevers, chills. States some sob with activity such as jogging. Patient states been coughing up a clear phlegm. Patient reports has tried muxcinex DM and robitussin. Tried abx and allergyl pill no improvment. Chest x-ray unremarkable in July, PFT normal in September and patient was seen by pulmonology suggestion patient has post reactive airway disease status post viral infection from when he had the flu back in June. Patient was recommended to use albuterol as needed. Patient denies any epigastric pain, burning or reflux symptoms that could be contributing to chronic cough. Patient reports that he has been told it is likely related to postnasal drip. Patient not currently taking any allergy medication or nasal spray. PFT IMPRESSION:? No obstructive or restrictive ventilatory defect.? No bronchodilator response. Decreased expiratory reserve volume suggests extrathoracic restriction likely secondary to abdominal obesity. Previous smoker quit age 34. [facility] Medical History Annual physical exam Hypercholesterolemia Hypertension Obesity (BMI 30-39.9) Thrombocytopenia Vitamin D deficiency Surgical History History of cholecystectomy History of excision of pilonidal cyst History of inguinal hernia repair Family History Father Cancer Mother No problems noted. Sister Breast cancer Son In good health Social History (Reviewed 01/30/23 @ 10:52 by Lissa Joseph [facility] Housing: House Alcohol intake: current Alcohol intake frequency: other Alcohol type: beer Patient Tobacco Use Status: Former Tobacco user Tobacco use type: Cigarette Years Smoked: 34 years old stopped e-Cigarette/Vaping Use: Never Used Second Hand Smoke Exposure: No service: No Current occupational status: retired Current occupation: rt hand Cognitive needs: No Hearing needs: No Vision needs: Yes Questionnaire PHQ-9 Over the last 2 weeks, how often have you been bothered by any of the following problems? 1. Little interest or pleasure in doing things: several days 2. Feeling down, depressed, or hopeless: several days 3. Trouble falling or staying asleep, or sleeping too much: not at all 4. Feeling tired or having little energy: not at all 5. Poor appetite or overeating: not at all 6. Feeling bad about yourself - or that you are a failure or have let yourself or your family down: not at all 7. Trouble concentrating on things, such as reading the newspaper or watching television: not at all 8. Moving or speaking so slowly that other people could have noticed. Or the opposite - being so fidgety or restless that you have been moving around a lot more than usual: not at all 9. Thoughts that you would be better off or of hurting yourself in some way: not at all Total score: 2 Depression Screening Interpretation: Positive Source: Developed by Drs. Marcin Waters, Ekaterina Pantoja, Alfie Colorado and colleagues, with an educational sushil from [employer]. Thrive Questionnaire Date Thrive assessed: 09/11/22 AUDIT C Alcohol Use Questionnaire (AUDIT-C) 1. How often do you have a drink containing alcohol?: 4 or more times a week 2. How many drinks containing alcohol do you have on a typical day when you are drinking?: 1 or 2 3. How often do you have six or more drinks on one occasion?: Never Total Score: 4 ALEIDA-7 AMB Questionnaire ALEIDA-7 Date ALEIDA - 7 assessed: 09/11/22 Source: Developed by Drs. Marcin Waters, Ekaterina Pantoja, Alfie Colorado and colleagues, with an educational sushil from [employer]. Review of Systems Const Denies chills, Denies fatigue, Denies fever(s) and Denies poor appetite Eyes Denies no additional complaints ENT Reports Normal hearing present Card Denies chest pain, Denies syncope, Denies rapid heart rate, Denies dyspnea and Reports dyspnea on exertion Resp Denies chest congestion, Reports cough, Denies dyspnea, Reports dyspnea on exertion, Denies wheezing and Reports other (clear phlegm ) Neuro Reports Normal hearing present, Denies confusion and Denies syncope Psych Denies confusion Endo Denies fatigue Aller/Immun Denies wheezing Physical exam (Primary Care) Vital Signs: unable to complete as this tis telehealth Tobacco/Smoking Status: Tobacco use Status Tobacco use date assessed 09/11/22 03/07/23 07:19 Patient Tobacco Use Status Former Tobacco user 03/07/23 07:19 Tobacco use type Cigarette 03/07/23 07:19 e-Cigarette/Vaping Use Never Used 03/07/23 07:19 PHQ-9: PHQ-9 Score PHQ-9: Total score 2 03/07/23 07:19 Depression Screening Interpretation: Positive Thrive Assessment: Date of Thrive Assessment Date Thrive assessed 09/11/22 03/07/23 07:19 Const General: No confusion Orientation/consciousness: No confusion Neuro General: No confusion Cranial nerves: Yes Normal hearing present Telehealth Telehealth Location of provider rendering services: practice address Location of patient: address on file Patient Identification confirmed using: Name, : Yes Telehealth method: video (Android) Patient verbally consented to treatment: Yes Patient verbally consented to billing insurance company: Yes Patient informed of any privacy concerns related to visit: Yes Minutes spent on Phone/Video with Pt.: 12 Assessment and Plan Assessment & Plan (1) Cough: Comment: HISTORY IS TYPICAL OF POST INFECTIOUS COUGH , WHICH IS RESOLVED ALMOST COMPLETELY. PATIENT PROBABLY HAD AN ACUTE VIRAL BRONCHITIS IN JUNE, HE WAS LEFT WITH REACTIVE AIRWAYS FOR SEVERAL WEEKS, CAUSING COUGH, AND NOW RESOLVED Code(s): R05.9 - Cough, unspecified Plan: Recommended Flonase 1-2 sprays into each nostrils daily. Patient reports he will buy this [id number]. (2) Asthmatic bronchitis: Comment: MOST LIKELY HE HAD POST VIRAL INFECTION REACTIVE AIRWAYS, WHICH USUALLY LOST FOR 8-12 WEEKS. AND NOW RESOLVED ALMOST COMPLETELY. I EXPLAINED TO HIM ABOUT THIS ISSUE. ALERTED THAT IN FUTURE HE CAN HAVE THE SAME REACTIVE AIRWAY. SYNDROME AFTER ANY VIRAL INFECTION TREATMENT WOULD BE TO USE ALBUTEROL 2 PUFFS Q 4-6 HOURS ON P.R.N. BASIS. Code(s): J45.909 - Unspecified asthma, uncomplicated Plan: Can continues albuterol as needed. (3) Hypertension: Code(s): I10 - Essential (primary) hypertension Qualifiers: Hypertension type: essential hypertension Qualified Code(s): I10 - Essential (primary) hypertension Plan: Continue atenolol 50 mg daily. Plan Keep scheduled follow-up with Dr. Plunkett in June. Coding Level of Care Code Tele Est Pt Level 3 (92414) Diagnoses Cough R05.9 Asthmatic bronchitis J45.909 Hypertension I10 Hypertension type: essential hypertension
== END 2023-03-07 07:41 | disposition home or self-care (01) ==
LOC: HO.HMGH 07:16
PROVIDERS: PCP Internal Medicine; Visit Provider Nurse Practitioner Family
DX: R05.9 Cough, unspecified (principal); J45.909 Unspecified asthma, uncomplicated; I10 Essential (primary) hypertension
CPT/HCPCS: 99213

== ENCOUNTER 2023-05-06 11:01 | Outpatient (AMB) | payer MEDICARE, SELFPAY ==
[2023-05-06 11:02] VITALS: BP 130/90; PULSE 66; O2SAT 98; BMI 36.2
--- NOTE | 2023-05-06 11:02 | A.OFFPC_ITS ---
Vital Signs 05/06/23 11:02 Height 5 ft 7 in Weight 231 lb BMI 36.2 BP 130/90 H Blood Pressure Location Lt brachial Position Sitting Pulse 66 Pulse Source Pulse Oximeter Pulse Oximetry (%) 98 Oxygen Delivery Method Room Air Intake Visit Reasons: Cough Print Journalist Required: No Allergies No Known Allergies Allergy (Verified 05/06/23 11:16) Medication List - Last Reconciled 05/06/23 by Adebayo Plunkett MD albuterol sulfate 90 mcg/actuation (Ventolin HFA) 2 puffs inhalation Q6H PRN aspirin (Adult Low Dose Aspirin) 81 mg PO DAILY atenolol 50 mg PO DAILY 90 days multivitamin 1 tab PO DAILY naproxen sodium (Aleve) 220 mg PO BID PRN Tobacco use date assessed: 05/06/23 Fall risk assessment: No Falls in past year Last assessed Fall Risk: 05/06/23 HPI Cough HPI Details 77-year-old obese male with a history of hypertension hypercholesterolemia impaired glucose tolerance last seen in February 2023 having asthmatic bronchitis. Patient is here for follow-up. Patient continue to have the cough, no fevers. did seen pulm 11/2022- post infectious cough but this time 10 months already- advised to ff up [facility] Medical History Annual physical exam Hypercholesterolemia Hypertension Obesity (BMI 30-39.9) Thrombocytopenia Vitamin D deficiency Surgical History History of cholecystectomy History of excision of pilonidal cyst History of inguinal hernia repair Family History Father Cancer Mother No problems noted. Sister Breast cancer Son In good health Social History Housing: House Alcohol intake: current Alcohol intake frequency: other Alcohol type: beer Patient Tobacco Use Status: Former Tobacco user Tobacco use type: Cigarette Years Smoked: 34 years old stopped e-Cigarette/Vaping Use: Never Used Second Hand Smoke Exposure: No service: No Current occupational status: retired Current occupation: rt hand Cognitive needs: No Hearing needs: No Vision needs: Yes Questionnaire Thrive Questionnaire Date Thrive assessed: 09/11/22 AUDIT C Alcohol Use Questionnaire (AUDIT-C) 1. How often do you have a drink containing alcohol?: 4 or more times a week 2. How many drinks containing alcohol do you have on a typical day when you are drinking?: 1 or 2 3. How often do you have six or more drinks on one occasion?: Never Total Score: 4 ALEIDA-7 AMB Questionnaire ALEIDA-7 Date ALEIDA - 7 assessed: 09/11/22 Source: Developed by Drs. Marcin Waters, Ekaterina Pantoja, Alfie Colorado and colleagues, with an educational sushil from [employer]. Physical exam (Primary Care) Vital Signs: Last Vital Signs Pulse 66 05/06/23 11:02 BP 130/90 H 05/06/23 11:02 Pulse Ox 98 05/06/23 11:02 Oxygen Delivery Method Room Air 05/06/23 11:02 BMI result Body Mass Index 36.2 Tobacco/Smoking Status: Tobacco use Status Tobacco use date assessed 05/06/23 05/06/23 11:03 Patient Tobacco Use Status Former Tobacco user 05/06/23 11:03 Tobacco use type Cigarette 05/06/23 11:03 e-Cigarette/Vaping Use Never Used 05/06/23 11:03 Thrive Assessment: Date of Thrive Assessment Date Thrive assessed 09/11/22 05/06/23 11:03 Const General: alert; No acute distress Eyes Conjunctivae: conjunctivae normal Resp Auscultation: clear to auscultation bilaterally Cardio Rate: regular rate Rhythm: regular rhythm GI Inspection: Yes normal to inspection Extrem General: Yes normal to inspection and No edema Office Procedures Flu Questionnaire Does the patient have a severe egg allergy?: No Does the patient have severe life threatening allergies?: No Does the patient have a fever or illness today?: No Has the patient ever had Guillain-Cheshire Syndrome?: No Has the patient ever had any past reaction to a flu shot?: No Immunizations flu vacc [id number] 6mos up(PF) 60 mcg(15 mcgx4)/0.5 mL IM syringe Performing Provider: Adebayo Plunkett MD Performing Location: [facility] Administered by: Kailyn Diaz CMA on 05/06/23 12:23 Dose Route Admin Location Dispensed Lot Number Expiration Date NDC Oil Agent 0.5 mL IM Left Deltoid 0.5 mL [id number] 01/05/24 35243-442-88 [employer] VIS Given Date VIS Provided VIS Publication Date 05/06/23 Single Vaccine 21 Eligibility Eligibility Date Funding Source Not VF Eligible 05/06/23 Private Assessment and Plan Assessment & Plan (1) Obesity (BMI 30-39.9): Code(s): E66.9 - Obesity, unspecified (2) Hypertension: Code(s): I10 - Essential (primary) hypertension Qualifiers: Hypertension type: essential hypertension Qualified Code(s): I10 - Essential (primary) hypertension Plan: Continue with blood pressure medication. Decrease salt intake and exercise on atenolol 50 mg once a day (3) Hypercholesterolemia: Code(s): E78.00 - Pure hypercholesterolemia, unspecified Plan: Avoid fried foods, chicken skin, eggs, butter margarine, pastries and meat. Be it pork or beef they have a lot of cholesterol December 2022 last blood work (4) Cough: Comment: HISTORY IS TYPICAL OF POST INFECTIOUS COUGH , WHICH IS RESOLVED ALMOST COMPLETELY. PATIENT PROBABLY HAD AN ACUTE VIRAL BRONCHITIS IN JUNE, HE WAS LEFT WITH REACTIVE AIRWAYS FOR SEVERAL WEEKS, CAUSING COUGH, AND NOW RESOLVED Code(s): R05.9 - Cough, unspecified Orders: Orders Influenza [id number] Immunization Today Z23 - Encounter for immunization CT chest wo/w IV con Today R05.9 - Cough, unspecified Referrals Pulmonary Medicine Referral R05.9 - Cough, unspecified Coding Level of Care Code Est Pt Level 4 (01561) Diagnoses Obesity (BMI 30-39.9) E66.9 Essential hypertension I10 Hypertension type: essential hypertension Hypercholesterolemia E78.00 Cough R05.9
== END 2023-05-06 12:29 | disposition home or self-care (01) ==
PROVIDERS: PCP Internal Medicine; Visit Provider Internal Medicine
DX: Z23 Encounter for immunization (principal); I10 Essential (primary) hypertension; E78.00 Pure hypercholesterolemia, unspecified; R05.9 Cough, unspecified
CPT/HCPCS: 90471; 90686; 99214

== ENCOUNTER 2023-06-19 09:34 | Outpatient (AMB) | payer MEDICARE, SELFPAY ==
[2023-06-19 09:37] VITALS: BP 120/60; PULSE 65; O2SAT 94; BMI 36.7
--- NOTE | 2023-06-19 09:37 | MHC.PC.OV ---
Vital Signs 06/19/23 09:37 Height 5 ft 7 in Weight 234 lb 4 oz BMI 36.7 BP 120/60 Blood Pressure Location Lt brachial Position Sitting Pulse 65 Pulse Source Pulse Oximeter Pulse Oximetry (%) 94 Oxygen Delivery Method Room Air Intake Visit Reasons: 6 month f/u Real Estate Leasing Agent Required: No Accompanied by: Self / Same As Patient Allergies No Known Allergies Allergy (Verified 06/19/23 09:42) Tobacco use date assessed: 05/06/23 Fall risk assessment: No Falls in past year Last assessed Fall Risk: 06/19/23 Dental Screening Dental Screen Date: 06/19/23 Did you have a dental visit in the last 12 months?: Yes Did you have a dental problem in the last 6 months where you did not have access to dental care?: No Was dental information given to patient?: Patient has dentist HPI 6 month f/u HPI Details 77-year-old obese male with hypertension hypercholesterolemia , impaired glucose tolerance last seen in April 2023. Patient is here for follow-up colonoscopy is up-to-date February 2014 [facility] Medical History (Updated 06/19/23 @ 10:03 by Adebayo Plunkett MD) Cough Knee buckling Asthmatic bronchitis Impaired glucose tolerance Annual physical exam Hypercholesterolemia Thrombocytopenia Vitamin D deficiency Obesity (BMI 30-39.9) Hypertension Surgical History History of cholecystectomy History of inguinal hernia repair History of excision of pilonidal cyst Family History Father Cancer Mother No problems noted. Sister Breast cancer Son In good health Social History Housing: House Alcohol intake: current Alcohol intake frequency: other Alcohol type: beer Patient Tobacco Use Status: Former Tobacco user Tobacco use type: Cigarette Years Smoked: 34 years old stopped e-Cigarette/Vaping Use: Never Used Second Hand Smoke Exposure: No service: No Current occupational status: retired Current occupation: rt hand Cognitive needs: No Hearing needs: No Vision needs: Yes Questionnaire Thrive Questionnaire Date Thrive assessed: 09/11/22 ALEIDA-7 AMB Questionnaire ALEIDA-7 Date ALEIDA - 7 assessed: 09/11/22 Source: Developed by Drs. Marcin Waters, Ekaterina B.W. Alfie Pantoja and colleagues, with an educational sushil from [employer]. Physical exam (Primary Care) Vital Signs: Last Vital Signs Pulse 65 06/19/23 09:37 BP 120/60 06/19/23 09:37 Pulse Ox 94 06/19/23 09:37 Oxygen Delivery Method Room Air 06/19/23 09:37 BMI result Body Mass Index 36.7 Tobacco/Smoking Status: Tobacco use Status Tobacco use date assessed 05/06/23 06/19/23 09:46 Patient Tobacco Use Status Former Tobacco user 06/19/23 09:46 Tobacco use type Cigarette 06/19/23 09:46 e-Cigarette/Vaping Use Never Used 06/19/23 09:46 Thrive Assessment: Date of Thrive Assessment Date Thrive assessed 09/11/22 06/19/23 09:46 Const General: alert; No acute distress Eyes Conjunctivae: conjunctivae normal Resp Auscultation: clear to auscultation bilaterally Cardio Rate: regular rate Rhythm: regular rhythm GI Inspection: Yes normal to inspection Extrem General: Yes normal to inspection and No edema Results AMB Hemoglobin A1c AMB Hemoglobin A1c 6.1 % Last Edit by Radha Tena on 06/19/23 09:50 Results Reviewed Results Reviewed: Laboratory Last Values Hgb A1c (Clinic) 6.1 % (4.0-6.0) H 06/19/23 09:38 Assessment and Plan Assessment & Plan (1) Impaired glucose tolerance: Code(s): R73.02 - Impaired glucose tolerance (oral) Plan: Decrease the amount of carbohydrate intake, pasta, bread, rice and potatoes are all sugar and that is aside from all the sweet stuff, remember that fruits are good but they are Sweet also. (2) Hypercholesterolemia: Code(s): E78.00 - Pure hypercholesterolemia, unspecified Plan: Avoid fried foods, chicken skin, eggs, butter margarine, pastries and meat. Be it pork or beef they have a lot of cholesterol LDL goal of less than 130 and triglyceride of less than 150. (3) Obesity (BMI 30-39.9): Code(s): E66.9 - Obesity, unspecified Plan: Diet and exercise (4) Hypertension: Code(s): I10 - Essential (primary) hypertension Qualifiers: Hypertension type: essential hypertension Qualified Code(s): I10 - Essential (primary) hypertension Plan: Continue with blood pressure medication. Decrease salt intake and exercise presently on atenolol (5) Cough: Comment: HISTORY IS TYPICAL OF POST INFECTIOUS COUGH , WHICH IS RESOLVED ALMOST COMPLETELY. PATIENT PROBABLY HAD AN ACUTE VIRAL BRONCHITIS IN JUNE, HE WAS LEFT WITH REACTIVE AIRWAYS FOR SEVERAL WEEKS, CAUSING COUGH, AND NOW RESOLVED Code(s): R05.9 - Cough, unspecified Plan: Patient continues to have the cough , CT scan this saturday and will be seeing Pulmonary next year Orders: Orders AMB Hemoglobin A1c Today Z13.9 - Encounter for screening, unspecified Coding Level of Care Code Est Pt Level 4 (91188) Diagnoses Impaired glucose tolerance R73.02 Hypercholesterolemia E78.00 Obesity (BMI 30-39.9) E66.9 Essential hypertension I10 Hypertension type: essential hypertension Cough R05.9
== END 2023-06-19 10:17 | disposition home or self-care (01) ==
PROVIDERS: PCP Internal Medicine; Visit Provider Internal Medicine
DX: R73.02 Impaired glucose tolerance (oral) (principal); E78.00 Pure hypercholesterolemia, unspecified; I10 Essential (primary) hypertension; R05.9 Cough, unspecified
CPT/HCPCS: 83036; 99214

== ENCOUNTER 2023-06-21 07:19 | Outpatient (REF) | payer MEDICARE, SELFPAY ==
--- NOTE | ~2023-06-21 | CT_ITS ---
EXAMINATION: CT CHEST WITH CONTRAST CLINICAL INFORMATION: Cough COMPARISON: Multiple prior chest radiographs most recently 07/23/2022. Ultrasound abdomen 04/22/2018. TECHNIQUE: Multidetector volumetric CT imaging of the chest was obtained after the administration of 65 mL of Omnipaque 350 intravenous contrast without immediate adverse reactions. Axial MIP volume rendering provided. Sagittal and coronal reformatted images were obtained. This CT examination was performed using dose optimization techniques as appropriate, variously including the following: *Automated exposure control *Adjustment of mA and/or kV according to patient size (this includes techniques or standardized protocols for targeted exams where dose is matched to indication/reason for exam; i.e. extremities or head) *Use of iterative reconstruction technique DLP: 210 mGy-cm FINDINGS: LUNGS: Multiple tiny punctate nodules are seen, the majority of which are calcified and almost all certainly represent granulomas. In the left upper lobe, there is a 6 mm nodular density with some other surrounding smaller nodules in a abmb-ny-lii-type configuration (7:104-106). MEDIASTINUM: The mediastinum is normal. PLEURA: There is no pleural effusion. No pleural mass or thickening. AXILLA: No lymphadenopathy. UPPER ABDOMEN: Liver attenuation is decreased suggesting steatosis which could be seen on the prior ultrasound exam. There is a 1.2 cm rounded area of hyperenhancement in the anterior liver (7:197 and 9:95) which is not well characterized. This could represent an area of focal fatty sparing but could represent a mass. OSSEOUS STRUCTURES: Mild degenerative changes are present throughout the spine. No bony destructive lesions. CT/CT chest w IV con IMPRESSION: 1. Multiple tiny punctate nodules the majority of which are calcified and almost all certainly represent granulomas. 2. In the left upper lobe, there is a 6 mm nodular density with some other surrounding smaller nodules in a tlxq-bn-bjj-type configuration. This may be inflammatory but follow-up to resolution is recommended. 3. Hepatic steatosis. 4. There is a 1.2 cm rounded area of hyperenhancement in the anterior liver which is not well characterized. This could represent an area of focal fatty sparing but could represent a mass. MRI could always be performed for more definitive characterization. According to the UPDATED 2017 Fleischner Society recommendations, the advised follow-up imaging for a single 6-8 mm solid nodule is follow-up CT at 6 to 12 months. In high-risk patients, subsequent CT follow-up at 18 to 24 months is recommended. In low-risk patients, subsequent CT follow-up at 18 to 24 months is optional.
[2023-06-21 08:19] LABS: Blood Urea Nitrogen 13 mg/dL (9-16); Estimated Glomerular Filt Rate > 60
[2023-06-21] MEDS: iohexoL 350 MG/ML 100 ML INFUS..BTL IV (09:18)
== END 2023-06-21 07:20 | disposition home or self-care (01) ==
LOC: HO.CT 07:19
PROVIDERS: PCP Internal Medicine; Visit Provider Internal Medicine
DX: R05.9 Cough, unspecified (principal)
CPT/HCPCS: 36415; 71260; 82565; 84520; Q9967

== ENCOUNTER 2023-07-16 10:34 | Outpatient (AMB) | payer MEDICARE, SELFPAY ==
[2023-07-16 10:38] VITALS: BP 118/68; PULSE 68; O2SAT 97; BMI 37.3
--- NOTE | 2023-07-16 10:38 | MHC.OFFVIS ---
Intake Vital Signs 07/16/23 10:38 Height 5 ft 7 in Weight 238 lb 1.588 oz BMI 37.3 BP 118/68 Blood Pressure Location Rt brachial Position Sitting Pulse 68 Pulse Source Doppler Pulse Oximetry (%) 97 Oxygen Delivery Method Room Air Intake Visit Reasons: Cough Allergies No Known Allergies Allergy (Verified 07/16/23 10:42) HPI Cough HPI Details 77-year-old gentleman, smoker in his teens and 20s, being followed for chronic cough ongoing for approximately 12 months, intermittently productive of small amount of whitish to yellowish sputum with no response to antibiotic course or cough suppressant. Worsening at night and sometimes after eating. Denies acid reflux. [facility] Medical History (Updated 07/16/23 @ 11:25 by Remington Schumacher MD) Cough Knee buckling Asthmatic bronchitis Impaired glucose tolerance Annual physical exam Hypercholesterolemia Thrombocytopenia Vitamin D deficiency Obesity (BMI 30-39.9) Hypertension Surgical History History of cholecystectomy History of inguinal hernia repair History of excision of pilonidal cyst Family History Father Cancer Mother No problems noted. Sister Breast cancer Son In good health Social History (Reviewed 07/16/23 @ 10:43 by Vidhya Nugent [facility]) Housing: House Alcohol intake: current Alcohol intake frequency: other Alcohol type: beer Patient Tobacco Use Status: Former Tobacco user Tobacco use type: Cigarette Years Smoked: 34 years old stopped e-Cigarette/Vaping Use: Never Used Second Hand Smoke Exposure: No service: No Current occupational status: retired Current occupation: rt hand Cognitive needs: No Hearing needs: No Vision needs: Yes Review of Systems Const Denies daytime sleepiness, Denies excessive sweating, Denies fatigue, Denies fever(s), Denies lethargy, Denies malaise, Denies night sweats, Denies snoring and Denies weight loss Eyes Denies blurry vision and Denies itchy eyes ENT Denies nasal congestion, Denies post nasal drip, Denies sinus pain, Denies sinus pressure and Denies other ( Thrush) Card Denies chest pain, Denies pedal edema, Denies dyspnea, Denies orthopnea and Denies paroxysmal nocturnal dyspnea Resp Reports cough, Denies hemoptysis, Reports excessive phlegm production, Denies dyspnea, Denies snoring and Denies wheezing GI Denies abdominal pain and Denies heartburn Musc Denies myalgias, Denies arthralgias and Denies joint swelling Skin/Breast Denies rash Neuro Denies memory loss and Denies seizure-like activity Psych Denies abnormal sleep pattern, Denies anxiety and Denies memory loss Endo Denies excessive sweating, Denies fatigue and Denies heat intolerance Rodney/Lymph Denies easy bruising Aller/Immun Denies itchy eyes, Denies seasonal rhinorrhea and Denies wheezing Physical Exam Vital Signs: Last Vital Signs Pulse 68 07/16/23 10:38 BP 118/68 07/16/23 10:38 Pulse Ox 97 07/16/23 10:38 Oxygen Delivery Method Room Air 07/16/23 10:38 BMI result Body Mass Index 37.3 Const General: no acute distress and alert Nutritional Appearance: not obese Orientation/consciousness: Other orientation findings ( oriented) HEENT Head: Yes atraumatic Eyes General: appearance normal, both eyes and all related structures Sclerae: sclerae normal EOM: EOMs intact bilaterally Neck Neck: Yes supple Lymphatic: no lymphadenopathy noted Resp Effort & Inspection: normal respiratory effort and no use of accessory muscles Auscultation: clear to auscultation bilaterally Cardio Rate: regular rate Rhythm: regular rhythm Heart sounds: no gallops, no murmurs and no rubs Skin General skin exam: other ( warm) Extrem General: No clubbing, No cyanosis and No edema Assessment & Plan Assessment & Plan (1) Chronic cough: Code(s): R05.3 - Chronic cough Plan: Unclear etiology, though suspect GERD component. Will start on empiric PPI b.i.d.. Will add azithromycin for productive cough component. (2) Pulmonary nodules: Code(s): R91.8 - Other nonspecific abnormal finding of lung field Plan: Results of CT chest reviewed, 6 minutes meeting under pulmonary nodules in low risk patient. Will repeat CT chest in 12 months. Medications: New omeprazole 40 mg PO BID 60 caps 0RF 30 days Coding Level of Care Code Est Pt Level 4 (32374) Diagnoses Chronic cough R05.3 Pulmonary nodules R91.8
== END 2023-07-16 11:12 | disposition home or self-care (01) ==
PROVIDERS: PCP Internal Medicine; Referring Provider Internal Medicine; Visit Provider Internal Medicine Pulmonary Disease
DX: R05.3 Chronic cough (principal); R91.8 Other nonspecific abnormal finding of lung field
CPT/HCPCS: 99214

== ENCOUNTER → 2023-07-16 10:34 | Outpatient (BNVA) | payer MEDICARE, SELFPAY | PROVIDERS: PCP Internal Medicine; Referring Provider Internal Medicine; Visit Provider Internal Medicine Pulmonary Disease | DX: R05.3 Chronic cough (principal); R91.8 Other nonspecific abnormal finding of lung field | CPT/HCPCS: 99212 ==

== ENCOUNTER 2023-08-08 10:52 | Outpatient (AMB) | payer MEDICARE, SELFPAY ==
--- NOTE | 2023-08-08 10:54 | MHC.OFFVIS ---
Intake Vital Signs 08/08/23 10:55 Height 5 ft 7 in Weight 237 lb 4.862 oz BMI 37.2 BP 127/82 Blood Pressure Location Rt brachial Position Sitting Pulse 72 Pulse Source Doppler Pulse Oximetry (%) 98 Oxygen Delivery Method Room Air Intake Visit Reasons: Shortness of breath Allergies No Known Allergies Allergy (Verified 08/08/23 10:57) HPI Shortness of breath HPI Details 77-year-old gentleman, smoker in his teens and 20s, being followed for chronic cough ongoing for approximately 12 months, intermittently productive of small amount of whitish to yellowish sputum with no response to antibiotic course or cough suppressant. Worsening at night and sometimes after eating. Denies acid reflux. After the last office visit patient tried omeprazole and find significant improvement in his productive cough symptoms when he uses it every evening. He was unable to tolerate to use it twice a day. [facility] Medical History (Updated 07/16/23 @ 11:25 by Remington Schumacher MD) Cough Knee buckling Asthmatic bronchitis Impaired glucose tolerance Annual physical exam Hypercholesterolemia Thrombocytopenia Vitamin D deficiency Obesity (BMI 30-39.9) Hypertension Surgical History History of cholecystectomy History of inguinal hernia repair History of excision of pilonidal cyst Family History Father Cancer Mother No problems noted. Sister Breast cancer Son In good health Social History Housing: House Alcohol intake: current Alcohol intake frequency: other Alcohol type: beer Patient Tobacco Use Status: Former Tobacco user Tobacco use type: Cigarette Years Smoked: 34 years old stopped e-Cigarette/Vaping Use: Never Used Second Hand Smoke Exposure: No service: No Current occupational status: retired Current occupation: rt hand Cognitive needs: No Hearing needs: No Vision needs: Yes Review of Systems Const Denies daytime sleepiness, Denies excessive sweating, Denies fatigue, Denies fever(s), Denies lethargy, Denies malaise, Denies night sweats, Denies snoring and Denies weight loss Eyes Denies blurry vision and Denies itchy eyes ENT Denies nasal congestion, Denies post nasal drip, Denies sinus pain, Denies sinus pressure and Denies other ( Thrush) Card Denies chest pain, Denies pedal edema, Denies dyspnea, Denies orthopnea and Denies paroxysmal nocturnal dyspnea Resp Denies cough, Denies hemoptysis, Denies excessive phlegm production, Denies dyspnea, Denies snoring and Denies wheezing GI Denies abdominal pain and Denies heartburn Musc Denies myalgias, Denies arthralgias and Denies joint swelling Skin/Breast Denies rash Neuro Denies memory loss and Denies seizure-like activity Psych Denies abnormal sleep pattern, Denies anxiety and Denies memory loss Endo Denies excessive sweating, Denies fatigue and Denies heat intolerance Rodney/Lymph Denies easy bruising Aller/Immun Denies itchy eyes, Denies seasonal rhinorrhea and Denies wheezing Physical Exam Vital Signs: Last Vital Signs Pulse 72 08/08/23 10:55 BP 127/82 08/08/23 10:55 Pulse Ox 98 08/08/23 10:55 Oxygen Delivery Method Room Air 08/08/23 10:55 BMI result Body Mass Index 37.2 Const General: no acute distress and alert Nutritional Appearance: not obese Orientation/consciousness: Other orientation findings ( oriented) HEENT Head: Yes atraumatic Eyes General: appearance normal, both eyes and all related structures Sclerae: sclerae normal EOM: EOMs intact bilaterally Neck Neck: Yes supple Lymphatic: no lymphadenopathy noted Resp Effort & Inspection: normal respiratory effort and no use of accessory muscles Auscultation: clear to auscultation bilaterally Cardio Rate: regular rate Rhythm: regular rhythm Heart sounds: no gallops, no murmurs and no rubs Skin General skin exam: other ( warm) Extrem General: No clubbing, No cyanosis and No edema Assessment & Plan Assessment & Plan (1) Chronic cough: Code(s): R05.3 - Chronic cough Plan: Improved significantly on q.p.m. omeprazole. Continue current regimen. (2) Pulmonary nodules: Code(s): R91.8 - Other nonspecific abnormal finding of lung field Plan: Underlying small pulmonary nodules. Will repeat CT chest in June of 2024. Ordered. Orders: Orders CT chest wo IV con 06/07/24 R91.8 - Other nonspecific abnormal finding of lung field Coding Level of Care Code Est Pt Level 4 (77602) Diagnoses Chronic cough R05.3 Pulmonary nodules R91.8
[2023-08-08 10:55] VITALS: BP 127/82; PULSE 72; O2SAT 98; BMI 37.2
== END 2023-08-08 11:56 | disposition home or self-care (01) ==
PROVIDERS: PCP Internal Medicine; Visit Provider Internal Medicine Pulmonary Disease
DX: R05.3 Chronic cough (principal); R91.8 Other nonspecific abnormal finding of lung field
CPT/HCPCS: 99214

== ENCOUNTER → 2023-08-08 10:52 | Outpatient (BNVA) | payer MEDICARE, SELFPAY | PROVIDERS: PCP Internal Medicine; Visit Provider Internal Medicine Pulmonary Disease | DX: R05.3 Chronic cough (principal); R91.8 Other nonspecific abnormal finding of lung field | CPT/HCPCS: 99212 ==

== ENCOUNTER 2023-09-19 09:40 | Outpatient (AMB) | payer MEDICARE, SELFPAY ==
[2023-09-19 09:43] VITALS: BP 130/82; PULSE 66; O2SAT 96; BMI 37.4
--- NOTE | 2023-09-19 09:43 | A.OFFPC_ITS ---
Vital Signs 09/19/23 09:43 Height 5 ft 7 in Weight 239 lb BMI 37.4 BP 130/82 Blood Pressure Location Lt brachial Position Sitting Pulse 66 Pulse Source Pulse Oximeter Pulse Oximetry (%) 96 Oxygen Delivery Method Room Air Intake Visit Reasons: Cough Allergies No Known Allergies Allergy (Verified 09/19/23 09:43) Tobacco use date assessed: 09/19/23 Fall risk assessment: No Falls in past year Last assessed Fall Risk: 09/19/23 Dental Screening Dental Screen Date: 09/19/23 Did you have a dental visit in the last 12 months?: Yes Did you have a dental problem in the last 6 months where you did not have access to dental care?: No Was dental information given to patient?: Patient has dentist HPI Cough HPI Details 77-year-old obese male with impaired glu cose tolerance hypercholesterolemia hypertension last seen in June 2023. Patient's colonoscopy is due for this year February 2014 last 1 has a chronic cough and sent to Pulmonary patient was given omeprazole which has improved the cough. Did have a CT scan done and showed small pulmonary nodules and will continue following up in June 2024. PAtient is coughing jennifer eason first giving antibiotic then omeprazole but this has not helped him with the cough patient continues to cough specially at night on lying down. Patient feels as a lot of phlegm in the throat. [facility] Medical History (Updated 09/19/23 @ 10:17 by Adebayo Plunkett MD) Cough Knee buckling Asthmatic bronchitis Impaired glucose tolerance Annual physical exam Hypercholesterolemia Thrombocytopenia Vitamin D deficiency Obesity (BMI 30-39.9) Hypertension Surgical History History of cholecystectomy History of inguinal hernia repair History of excision of pilonidal cyst Family History Father Cancer Mother No problems noted. Sister Breast cancer Son In good health Social History Housing: House Alcohol intake: current Alcohol intake frequency: other Alcohol type: beer Patient Tobacco Use Status: Former Tobacco user Tobacco use type: Cigarette Years Smoked: 34 years old stopped e-Cigarette/Vaping Use: Never Used Second Hand Smoke Exposure: No service: No Current occupational status: retired Current occupation: rt hand Cognitive needs: No Hearing needs: No Vision needs: Yes Questionnaire PHQ-9 Over the last 2 weeks, how often have you been bothered by any of the following problems? 1. Little interest or pleasure in doing things: several days 2. Feeling down, depressed, or hopeless: several days 3. Trouble falling or staying asleep, or sleeping too much: not at all 4. Feeling tired or having little energy: not at all 5. Poor appetite or overeating: not at all 6. Feeling bad about yourself - or that you are a failure or have let yourself or your family down: not at all 7. Trouble concentrating on things, such as reading the newspaper or watching television: not at all 8. Moving or speaking so slowly that other people could have noticed. Or the opposite - being so fidgety or restless that you have been moving around a lot more than usual: not at all 9. Thoughts that you would be better off or of hurting yourself in some way: not at all Total score: 2 Depression Screening Interpretation: Positive Depression Screening Done: Yes Source: Developed by Drs. Marcin Waters, Ekaterina Pantoja, Alfie Colorado and colleagues, with an educational sushil from [employer]. Thrive Questionnaire Date Thrive assessed: 09/19/23 I am a: Patient What is your living situation today?: I have a steady place to live Within the past 12 months, did the food you bought not last and you didn't have the money to get more?: Never true Within the past 12 months, did you worry whether your food would run out before you got money to buy more?: Never true Do you have trouble paying for medicines?: No Do you have trouble getting transportation to medical appointments?: No Do you have trouble paying your heating and electricity bill?: No Do you have trouble taking care of your child, family member or friend?: No Do you have trouble with day-to-day activities such as bathing, preparing meals, shopping, managing finances, etc.?: No Are you currently unemployed and looking for a job?: No Are you interested in more education?: No Currently or been in a relationship where the following occur: no concerns reported THRIVE Score: 0 AUDIT C Alcohol Use Questionnaire (AUDIT-C) 1. How often do you have a drink containing alcohol?: 4 or more times a week 2. How many drinks containing alcohol do you have on a typical day when you are drinking?: 1 or 2 3. How often do you have six or more drinks on one occasion?: Never Total Score: 4 ALEIDA-7 AMB Questionnaire ALEIDA-7 Date ALEIDA - 7 assessed: 09/19/23 Feeling nervous, anxious, or on edge: 0 = Not at all Not being able to stop or control worryin = Not at all Worrying too much about different things: 0 = Not at all Trouble relaxin = Not at all Being so restless that it is hard to sit still: 0 = Not at all Becoming easily annoyed or irritable: 0 = Not at all Feeling afraid as if something awful might happen: 0 = Not at all Total ALEIDA-7 score (0-4 normal; 5-9 mild; 10-14 moderate; 15-21 severe): 0 Source: Developed by Drs. Marcin Waters, Ekaterina Pantoja, Alfie Colorado and colleagues, with an educational sushil from [employer]. Physical exam (Primary Care) Vital Signs: Last Vital Signs Pulse 66 09/19/23 09:43 BP 130/82 09/19/23 09:43 Pulse Ox 96 09/19/23 09:43 Oxygen Delivery Method Room Air 09/19/23 09:43 BMI result Body Mass Index 37.4 Tobacco/Smoking Status: Tobacco use Status Tobacco use date assessed 09/19/23 09/19/23 09:45 Patient Tobacco Use Status Former Tobacco user 09/19/23 09:45 Tobacco use type Cigarette 09/19/23 09:45 e-Cigarette/Vaping Use Never Used 09/19/23 09:45 PHQ-9: PHQ-9 Score PHQ-9: Total score 2 09/19/23 09:53 Depression Screening Interpretation: Positive Thrive Assessment: Date of Thrive Assessment Date Thrive assessed 09/19/23 09/19/23 09:45 Currently or been in a relationship where the following occur: no concerns reported Const General: alert; No acute distress Eyes Conjunctivae: conjunctivae normal Resp Auscultation: clear to auscultation bilaterally Cardio Rate: regular rate Rhythm: regular rhythm GI Inspection: Yes normal to inspection Extrem General: Yes normal to inspection and No edema Assessment and Plan Assessment & Plan (1) Pulmonary nodules: Comment: June 2024 CT scan Code(s): R91.8 - Other nonspecific abnormal finding of lung field Plan: Patient has seen Pulmonary and request CT scan for June 2024 (2) Hypertension: Code(s): I10 - Essential (primary) hypertension Qualifiers: Hypertension type: essential hypertension Qualified Code(s): I10 - Essential (primary) hypertension Plan: Continue with blood pressure medication. Decrease salt intake and exercise on atenolol 50 mg once a day (3) Obesity (BMI 30-39.9): Code(s): E66.9 - Obesity, unspecified Plan: Diet and exercise (4) Hypercholesterolemia: Code(s): E78.00 - Pure hypercholesterolemia, unspecified Plan: Avoid fried foods, chicken skin, eggs, butter margarine, pastries and meat. Be it pork or beef they have a lot of cholesterol LDL goal of less than 130 and triglyceride of less than 150 (5) Impaired glucose tolerance: Code(s): R73.02 - Impaired glucose tolerance (oral) Plan: Decrease the amount of carbohydrate intake, pasta, bread, rice and potatoes are all sugar and that is aside from all the sweet stuff, remember that fruits are good but they are Sweet also. (6) Colon cancer screening: Code(s): Z12.11 - Encounter for screening for malignant neoplasm of colon Plan: Referral to Gastroenterology (7) Chronic cough: Code(s): R05.3 - Chronic cough Plan: Barium swallow with small-bowel follow-through requested, allergy medication with nasal spray prescribed and will refer to Gastroenterology and have him f ollow-up with Pulmonary. Orders: Orders [place] barium swallow w SBFT Today R05.3 - Chronic cough Referrals Gastroenterology Referral R05.3 - Chronic cough, Z12.11 - Encounter for screening for malignant neoplasm of colon Medications: New fexofenadine (Ana Allergy) 180 mg PO DAILY 30 tabs 2RF R05.3 - Chronic cough fluticasone propionate 50 mcg/actuation (Flonase Allergy Relief) administer into each nostril 2 sprays intranasal DAILY 16 grams 0RF R05.3 - Chronic cough Refilled albuterol sulfate 90 mcg/actuation (Ventolin HFA) 2 puffs inhalation Q6H PRN 8.5 grams 0RF shortness of breath or wheezing J45.909 - Unspecified asthma, uncomplicated Coding Level of Care Code Est Pt Level 4 (89790) Diagnoses Pulmonary nodules R91.8 Essential hypertension I10 Hypertension type: essential hypertension Obesity (BMI 30-39.9) E66.9 Hypercholesterolemia E78.00 Impaired glucose tolerance R73.02 Colon cancer screening Z12.11 Chronic cough R05.3
== END 2023-09-19 10:41 | disposition home or self-care (01) ==
PROVIDERS: PCP Internal Medicine; Visit Provider Internal Medicine
DX: R91.8 Other nonspecific abnormal finding of lung field (principal); I10 Essential (primary) hypertension; E78.00 Pure hypercholesterolemia, unspecified; R73.02 Impaired glucose tolerance (oral); R05.3 Chronic cough
CPT/HCPCS: 99214

== ENCOUNTER 2023-09-25 10:24 | Outpatient (AMB) | payer MEDICARE, SELFPAY ==
[2023-09-25 10:38] VITALS: BP 142/77; PULSE 75; O2SAT 96; BMI 37.8
--- NOTE | 2023-09-25 10:38 | MHC.OFFVIS ---
Intake Vital Signs 09/25/23 10:38 Height 5 ft 7 in Weight 241 lb 6.499 oz BMI 37.8 BP 142/77 H Blood Pressure Location Lt brachial Position Sitting Pulse 75 Pulse Oximetry (%) 96 Oxygen Delivery Method Room Air Intake Visit Reasons: cough Allergies No Known Allergies Allergy (Verified 09/25/23 10:39) HPI cough HPI Details 77-year-old gentleman, smoker in his teens and 20s, being followed for chronic cough ongoing for approximately 12 months, intermittently productive of small amount of whitish to yellowish sputum with no response to antibiotic course or cough suppressant. Worsening at night and sometimes after eating. Denies acid reflux but had significant response to omeprazole and is scheduled for further GI workup with endoscopy. Today patient does complain of worsening productive cough in the morning. [facility] Medical History (Updated 09/20/23 @ 17:55 by Adebayo Plunkett MD) Cough Knee buckling Asthmatic bronchitis Impaired glucose tolerance Annual physical exam Hypercholesterolemia Thrombocytopenia Vitamin D deficiency Obesity (BMI 30-39.9) Hypertension Surgical History History of cholecystectomy History of inguinal hernia repair History of excision of pilonidal cyst Family History Father Cancer Mother No problems noted. Sister Breast cancer Son In good health Social History Housing: House Alcohol intake: current Alcohol intake frequency: other Alcohol type: beer Patient Tobacco Use Status: Former Tobacco user Tobacco use type: Cigarette Years Smoked: 34 years old stopped e-Cigarette/Vaping Use: Never Used Second Hand Smoke Exposure: No service: No Current occupational status: retired Current occupation: rt hand Cognitive needs: No Hearing needs: No Vision needs: Yes Review of Systems Const Denies daytime sleepiness, Denies excessive sweating, Denies fatigue, Denies fever(s), Denies lethargy, Denies malaise, Denies night sweats, Denies snoring and Denies weight loss Eyes Denies blurry vision and Denies itchy eyes ENT Denies nasal congestion, Denies post nasal drip, Denies sinus pain, Denies sinus pressure and Denies other ( Thrush) Card Denies chest pain, Denies pedal edema, Denies dyspnea, Denies orthopnea and Denies paroxysmal nocturnal dyspnea Resp Reports cough, Denies hemoptysis, Reports excessive phlegm production, Denies dyspnea, Denies snoring and Denies wheezing GI Denies abdominal pain and Denies heartburn Musc Denies myalgias, Denies arthralgias and Denies joint swelling Skin/Breast Denies rash Neuro Denies memory loss and Denies seizure-like activity Psych Denies abnormal sleep pattern, Denies anxiety and Denies memory loss Endo Denies excessive sweating, Denies fatigue and Denies heat intolerance Rodney/Lymph Denies easy bruising Aller/Immun Denies itchy eyes, Denies seasonal rhinorrhea and Denies wheezing Physical Exam Vital Signs: Last Vital Signs Pulse 75 09/25/23 10:38 BP 142/77 H 09/25/23 10:38 Pulse Ox 96 09/25/23 10:38 Oxygen Delivery Method Room Air 09/25/23 10:38 BMI result Body Mass Index 37.8 Const General: no acute distress and alert Nutritional Appearance: not obese Orientation/consciousness: Other orientation findings ( oriented) HEENT Head: Yes atraumatic Eyes General: appearance normal, both eyes and all related structures Sclerae: sclerae normal EOM: EOMs intact bilaterally Neck Neck: Yes supple Lymphatic: no lymphadenopathy noted Resp Effort & Inspection: normal respiratory effort and no use of accessory muscles Auscultation: clear to auscultation bilaterally Cardio Rate: regular rate Rhythm: regular rhythm Heart sounds: no gallops, no murmurs and no rubs Skin General skin exam: other ( warm) Extrem General: No clubbing, No cyanosis and No edema Assessment & Plan Assessment & Plan (1) Chronic cough: Code(s): R05.3 - Chronic cough Plan: Appears to be multifactorial with significant GERD contribution that is improved on PPI. Now with more of a productive component in the morning that will treat with a course of Augmentin. (2) Pulmonary nodules: Comment: June 2024 CT scan Code(s): R91.8 - Other nonspecific abnormal finding of lung field Plan: 6 mm and under pulmonary nodules. Follow-up CT scan is pending for June of 2024. Medications: New amoxicillin-pot clavulanate 875-125 mg 1 tab PO BID 20 tabs 0RF Coding Level of Care Code Est Pt Level 4 (00438) Diagnoses Chronic cough R05.3 Pulmonary nodules R91.8
== END 2023-09-25 10:56 | disposition home or self-care (01) ==
PROVIDERS: PCP Internal Medicine; Visit Provider Internal Medicine Pulmonary Disease
DX: R05.3 Chronic cough (principal); R91.8 Other nonspecific abnormal finding of lung field
CPT/HCPCS: 99214

== ENCOUNTER → 2023-09-25 10:24 | Outpatient (BNVA) | payer MEDICARE, SELFPAY | PROVIDERS: PCP Internal Medicine; Visit Provider Internal Medicine Pulmonary Disease | DX: R05.3 Chronic cough (principal); R91.8 Other nonspecific abnormal finding of lung field; Z87.891 Personal history of nicotine dependence | CPT/HCPCS: 99212 ==

== ENCOUNTER 2023-11-28 09:08 | Outpatient (REF) | payer MEDICARE, SELFPAY ==
--- NOTE | ~2023-11-28 | FL_ITS ---
EXAMINATION: XR FLUOROSCOPY UPPER GI WITH AIR CLINICAL INFORMATION: Dysphagia COMPARISON: CT chest June 2023 TECHNIQUE: Fluoroscopic air contrast upper GI examination was performed utilizing standard techniques with thin and thick barium and effervescent granules. Numerous spot images were obtained. FINDINGS: Of note, the cervical spine is fused from C2 through C7 by flowing anterior syndesmophytes. This finding is highly concerning for ankylosing spondylitis. At C3, there is mild mass effect upon the hypopharynx, likely not clinically significant. Review of recent CT examination of the chest 06/21/2023 shows pathognomonic findings for ankylosing spondylitis. Lateral cine images of the oropharynx and hypopharynx demonstrate normal swallow mechanism with normal epiglottic inversion and soft palate elevation. No tracheal penetration, glottic or subglottic aspiration identified. No nasopharyngeal reflux present. Hypopharyngeal structures appear normal without evidence of mass or diverticulum. There was no significant cricopharyngeal achalasia. Dual and single contrast images of the esophagus demonstrate a normal caliber and mucosal pattern. 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 There is a high-grade extrinsic impression on the posterior wall of the lower cervical/upper thoracic esophagus. This appears to be secondary to a large anterior syndesmophyte arising from T1-T2. This may be causing a functional obstruction episodically. There is to and fro motion of the barium column with nonpropulsive tertiary contractions noted throughout the esophagus. There is mild to moderate narrowing of the GE junction above the hiatal hernia. A small type I hiatal hernia is present. No significant gastroesophageal reflux was seen during the course of the examination and on reflux views. Dual contrast and single contrast images of the stomach demonstrated a normal contour. There are multiple foci of contrast pooling in the fundus and body the stomach that may represent small superficial aphthous ulcers. No masses are seen. Contrast freely passed into the gastric antrum and duodenal bulb without delay. Single and air-contrast images of the duodenal bulb demonstrate no abnormality. The duodenal sweep has a normal appearance, course, and mucosal fold appearance. There is no malrotation. The imaged proximal jejunum has a normal fold pattern and caliber. FLUOROSCOPY TIME: 5 minutes 8 seconds Number of Spot Images: 12 Number of Cine: 9 DOSE AREA PRODUCT: [id number] uGy-m2 (microgray-meter squared) FL/FL upper GI w air w Ba Swallow IMPRESSION: 1. 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 This is unlikely contributing to the patient's symptoms. 2. High-grade extrinsic compression upon the posterior wall of the upper esophagus secondary to a large syndesmophyte arising ventrally from T1-T2. Based on his recent CT scan in June 2023, this appears to be causing significant mass effect upon the esophagus at this level. Review this CT of the chest 06/21/2023 demonstrates bony findings pathognomonic of ankylosing spondylitis. 3. Esophageal dysmotility. 4. Mild to moderate narrowing of the GE junction above the hiatal hernia. This may represent achalasia, or a benign stricture. Recommend correlation with EGD. 5. Small type I hiatal hernia. 6. Multiple foci of contrast pooling in the fundus and body of the stomach that may represent small superficial aphthous ulcers. 7. 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 At C3, there is mild mass effect upon the hypopharynx, likely clinically insignificant. This procedure was performed by Carlos Martines PA-C, and supervised by Dr. Redd
== END 2023-11-28 09:09 | disposition home or self-care (01) ==
LOC: HO.XRAY 09:08
PROVIDERS: PCP Internal Medicine; Visit Provider Internal Medicine
DX: R13.10 Dysphagia, unspecified (principal)
CPT/HCPCS: 74246

== ENCOUNTER → 2023-11-28 09:10 | Outpatient (BNV) | payer MEDICARE, SELFPAY | PROVIDERS: PCP Internal Medicine; Visit Provider Physician Assistant Surgical | DX: R13.10 Dysphagia, unspecified (principal) | CPT/HCPCS: 74246 ==

== ENCOUNTER 2023-12-17 08:53 | Outpatient (AMB) | payer MEDICARE, SELFPAY ==
[2023-12-17 08:56] VITALS: BP 122/76; PULSE 81; O2SAT 97; BMI 37.0
--- NOTE | 2023-12-17 08:56 | A.OFFPC_ITS ---
Vital Signs 12/17/23 08:56 Height 5 ft 7 in Weight 236 lb BMI 37.0 BP 122/76 Blood Pressure Location Lt brachial Position Sitting Pulse 81 Pulse Source Pulse Oximeter Pulse Oximetry (%) 97 Oxygen Delivery Method Room Air Intake Visit Reasons: pe Allergies No Known Allergies Allergy (Verified 12/17/23 08:56) Medication List - Last Reconciled 12/17/23 by Adebayo Plunkett MD aspirin (Adult Low Dose Aspirin) 81 mg PO DAILY atenolol 50 mg PO DAILY 90 days multivitamin 1 tab PO DAILY naproxen sodium (Aleve) 220 mg PO DAILY PRN Tobacco use date assessed: 09/19/23 Fall risk assessment: No Falls in past year Last assessed Fall Risk: 12/17/23 Dental Screening Dental Screen Date: 09/19/23 HPI pe HPI Details 78-year-old obese male with impaired glu cose tolerance hypertension hypercholesterolemia coming in for physical exam. Last seen in 09/25/2023 pulmonary nodules noted has been seeing Pulmonary and CT scan is due for later this year. Patient was reminded about colon cancer screening and has had a chronic cough barium swallow requested and done. Done 11/2023Small anterior cervical web at the level C5. This is unlikely contributing to the patient's symptoms. 2. High-grade extrinsic compression upon the posterior wall of the upper esophagus secondary to a large syndesmophyte arising ventrally from T1-T2. Based on his recent CT scan in June 2023, this appears to be causing significant mass effect upon the esophagus at this level. Review this CT of the chest 06/21/2023 demonstrates bony findings pathognomonic of ankylosing spondylitis. 3. Esophageal dysmotility. 4. Mild to moderate narrowing of the GE junction above the hiatal hernia. This may represent achalasia, or a benign stricture. Recommend correlation with EGD. 5. Small type I hiatal hernia. 6. Multiple foci of contrast pooling in the fundus and body of the stomach that may represent small superficial aphthous ulcers. 7. 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 At C3, there is mild mass effect upon the hypopharynx, likely clinically insignificant. Patient has been referred to the neurosurgeon and the monitoring and evaluation advisor. Neurosurgeon requested for an MRI. With the cough patient was seen by Pulmonary placed on Augmentin. 2 min chest fullness, got better on burping, first time, complains of memory [facility] Medical History (Updated 11/29/23 @ 18:29 by Adebayo Plunkett MD) Cough Knee buckling Asthmatic bronchitis Impaired glucose tolerance Annual physical exam Hypercholesterolemia Thrombocytopenia Vitamin D deficiency Obesity (BMI 30-39.9) Hypertension Surgical History History of cholecystectomy History of inguinal hernia repair History of excision of pilonidal cyst Family History (Updated 12/17/23 @ 09:21 by Adebayo Plunkett MD) Father Cancer Liver cancer Mother No problems noted. Sister Breast cancer Son In good health Social History (Updated 12/17/23 @ 09:22 by Adebayo Plunkett MD) Housing: House Alcohol intake: current Alcohol intake frequency: other Alcohol type: beer Comment: once a week 1 beer Patient Tobacco Use Status: Former Tobacco user Tobacco use type: Cigarette Years Smoked: 34 years old stopped e-Cigarette/Vaping Use: Never Used Second Hand Smoke Exposure: No service: No Current occupational status: retired Current occupation: rt hand Cognitive needs: No Hearing needs: No Vision needs: Yes Questionnaire PHQ-9 Over the last 2 weeks, how often have you been bothered by any of the following problems? 1. Little interest or pleasure in doing things: several days 2. Feeling down, depressed, or hopeless: several days 3. Trouble falling or staying asleep, or sleeping too much: not at all 4. Feeling tired or having little energy: not at all 5. Poor appetite or overeating: not at all 6. Feeling bad about yourself - or that you are a failure or have let yourself or your family down: not at all 7. Trouble concentrating on things, such as reading the newspaper or watching television: not at all 8. Moving or speaking so slowly that other people could have noticed. Or the opposite - being so fidgety or restless that you have been moving around a lot more than usual: not at all 9. Thoughts that you would be better off or of hurting yourself in some wa y: not at all Total score: 2 Depression Screening Interpretation: Positive Depression Screening Done: Yes Source: Developed by Drs. Marcin L. JtEkaterina ramos Kurt Kroenke and colleagues, with an educational sushil from [employer]. Thrive Questionnaire Date Thrive assessed: 09/19/23 AUDIT C Alcohol Use Questionnaire (AUDIT-C) 1. How often do you have a drink containing alcohol?: 4 or more times a week 2. How many drinks containing alcohol do you have on a typical day when you are drinking?: 1 or 2 3. How often do you have six or more drinks on one occasion?: Never Total Score: 4 ALEIDA-7 AMB Questionnaire ALEIDA-7 Date ALEIDA - 7 assessed: 12/17/23 Feeling nervous, anxious, or on edge: 0 = Not at all Not being able to stop or control worryin = Not at all Worrying too much about different things: 0 = Not at all Trouble relaxin = Not at all Being so restless that it is hard to sit still: 0 = Not at all Becoming easily annoyed or irritable: 0 = Not at all Feeling afraid as if something awful might happen: 0 = Not at all Total ALEIDA-7 score (0-4 normal; 5-9 mild; 10-14 moderate; 15-21 severe): 0 Source: Developed by Drs. Marcin Waters, Alfie Aguila and colleagues, with an educational sushil from [employer]. Review of Systems Const Denies poor appetite and Denies weakness Eyes Denies no additional complaints ENT Reports Normal hearing present, Denies dizziness, Denies nasal congestion, Denies tinnitus and Denies sore throat Card Denies chest pain, Denies syncope, Denies rapid heart rate and Denies dyspnea Resp Denies cough and Denies dyspnea GI Denies change in stool character, Reports constipation, Denies diarrhea, Denies nausea and Denies vomiting Denies dysuria and Denies urinary frequency Neuro Reports Normal hearing present, Denies confusion, Denies dizziness, Denies syncope and Denies weakness Psych Denies confusion Physical exam (Primary Care) Vital Signs: Last Vital Signs Pulse 81 12/17/23 08:56 BP 122/76 12/17/23 08:56 Pulse Ox 97 12/17/23 08:56 Oxygen Delivery Method Room Air 12/17/23 08:56 BMI result Body Mass Index 37.0 Tobacco/Smoking Status: Tobacco use Status Tobacco use date assessed 09/19/23 12/17/23 09:03 Patient Tobacco Use Status Former Tobacco user 12/17/23 09:03 Tobacco use type Cigarette 12/17/23 09:03 e-Cigarette/Vaping Use Never Used 12/17/23 09:03 PHQ-9: PHQ-9 Score PHQ-9: Total score 2 12/17/23 09:03 Depression Screening Interpretation: Positive Thrive Assessment: Date of Thrive Assessment Date Thrive assessed 09/19/23 12/17/23 09:03 Const General: No confusion Orientation/consciousness: No confusion HENMT Head: Yes normocephalic Ears: external ears normal and TM's normal bilaterally Face and sinus: Yes normal facial exam Mouth: moist mucous membranes Throat: Yes tonsils normal Eyes Conjunctivae: conjunctivae normal Pupils: Equal, round and reactive pupils present and Pupil accommodation reflex normal Direct Ophthalmoscopy: normal light reflex Neck Neck: No lymphadenopathy Thyroid: Thyroid normal Chest Chest palpation & inspection: normal inspection of the chest Resp Effort & Inspection: normal respiratory effort and no audible wheezes Auscultation: clear to auscultation bilaterally, no crackles, no wheezes and lung sounds not diminished Cardio Rate: regular rate Rhythm: regular rhythm Peripheral pulses: radial pulses present and dorsalis pedis present GI Palpation (GI): no masses Auscultation: normal bowel sounds and normoactive bowel sounds Rectal Exam - Male: Yes deferred Skin General skin exam: no rashes or lesions noted Rashes: no rashes Neuro General: No confusion Cranial nerves: Yes Equal, round and reactive pupils present and Yes Normal hearing present Cognition (Neuro): normal cognition Gait exam (Neuro): Normal gait present Motor exam (neuro): 5/5 motor strength present throughout Deep tendon reflexes (DTR's): Right brachioradialis reflex intensity grade: 2+, Left brachioradialis reflex intensity grade: 2+, Right patellar reflex intensity grade: 2+ and Left patellar reflex intensity grade: 2+ Extrem General: No edema Assessment and Plan Assessment & Plan (1) Annual physical exam: Code(s): Z00.00 - Encounter for general adult medical examination without abnormal findin gs Plan: Patient is advised to eat healthy, keep well hydrated, keep active and have adequate sleep. (2) Ankylosing spondylitis: Comment: 11/25/2023Small anterior cervical web at the level C5. This is unlikely contributing to the patient's symptoms. 2. High-grade extrinsic compression upon the posterior wall of the upper esophagus secondary to a large syndesmophyte arising ventrally from T1-T2. Based on his recent CT scan in June 2023, this appears to be causing significant mass effect upon the esophagus at this level. Review this CT of the chest 06/21/2023 demonstrates bony findings pathognomonic of ankylosing spondylitis. 3. Esophageal dysmotility. 4. Mild to moderate narrowing of the GE junction above the hiatal hernia. This may represent achalasia, or a benign stricture. Recommend correlation with EGD. 5. Small type I hiatal hernia. 6. Multiple foci of contrast pooling in the fundus and body of the stomach that may represent small superficial aphthous ulcers. 7. 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 At C3, there is mild mass effect upon the hypopharynx, likely clinically insignificant. Code(s): M45.9 - Ankylosing spondylitis of unspecified sites in spine Plan: Patient has been referred to the neurosurgeon but has requested for an MRI before seeing. PAtient has also been referred to rheumatology (3) Achalasia: Comment: 11/2023Small anterior cervical web at the level C5. This is unlikely contributing to the patient's symptoms. 2. High-grade extrinsic compression upon the posterior wall of the upper esophagus secondary to a large syndesmophyte arising ventrally from T1-T2. Based on his recent CT scan in June 2023, this appears to be causing significant mass effect upon the esophagus at this level. Review this CT of the chest 06/21/2023 demonstrates bony findings pathognomonic of ankylosing spondylitis. 3. Esophageal dysmotility. 4. Mild to moderate narrowing of the GE junction above the hiatal hernia. This may represent achalasia, or a benign stricture. Recommend correlation with EGD. 5. Small type I hiatal hernia. 6. Multiple foci of contrast pooling in the fundus and body of the stomach that may represent small superficial aphthous ulcers. 7. 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 At C3, there is mild mass effect upon the hypopharynx, likely clinically insignificant. Code(s): K22.0 - Achalasia of cardia Plan: Patient is going to follow-up with Gastroenterology (4) GERD (gastroesophageal reflux disease): Code(s): K21.9 - Gastro-esophageal reflux disease without esophagitis Plan: Avoid the foods that causes that usually spicy foods, tomato products, juices, coffee, soda and foods that your sensitive to. After eating do not lie down, allow 3-4 hours before in lie down. And keep the head of bed above 30 degrees to avoid the acid from going up. On omeprazole (5) Pulmonary nodules: Comment: June 2024 CT scan Code(s): R91.8 - Other nonspecific abnormal finding of lung field Plan: June due for CT scan for pulmonary nodule follow-up (6) Cough: Comment: HISTORY IS TYPICAL OF POST INFECTIOUS COUGH , WHICH IS RESOLVED ALMOST COMPLETELY. PATIENT PROBABLY HAD AN ACUTE VIRAL BRONCHITIS IN JUNE, HE WAS LEFT WITH REACTIVE AIRWAYS FOR SEVERAL WEEKS, CAUSING COUGH, AND NOW RESOLVED Code(s): R05.9 - Cough, unspecified Plan: Patient has also seen Pulmonary for this (7) Impaired glucose tolerance: Code(s): R73.02 - Impaired glucose tolerance (oral) Plan: Decrease the amount of carbohydrate intake, pasta, bread, rice and potatoes are all sugar and that is aside from all the sweet stuff, remember that fruits are good but they are Sweet also. (8) Hypertension: Code(s): I10 - Essential (primary) hypertension Qualifiers: Hypertension type: essential hypertension Qualified Code(s): I10 - Essential (primary) hypertension Plan: Continue with blood pressure medication. Decrease salt intake and exercise on atenolol 50 mg once a day (9) Vitamin D deficiency: Code(s): E55.9 - Vitamin D deficiency, unspecified Plan: Advised to take vitamin-D 2000 units once a day (10) Hypercholesterolemia: Code(s): E78.00 - Pure hypercholesterolemia, unspecified Plan: Avoid fried foods, chicken skin, eggs, butter margarine, pastries and meat. Be it pork or beef they have a lot of cholesterol will request for blood work this time Orders: Orders Comprehensive Met. Panel Today E78.00 - Pure hypercholesterolemia, unspecified Complete Blood Count Auto Diff Today E78.00 - Pure hypercholesterolemia, unspecified Free T4 (Free Thyroxine) Today E78.00 - Pure hypercholesterolemia, unspecified Vitamin B12 and Folate Today E78.00 - Pure hypercholesterolemia, unspecified Hemoglobin A1c Today R73.02 - Impaired glucose tolerance (oral) Thyroid Stimulating Hormone Today E78.00 - Pure hypercholesterolemia, unspecified Lipid Panel Today E78.00 - Pure hypercholesterolemia, unspecified Erythrocyte Sedimentation Rate Today M45.9 - Ankylosing spondylitis of unspecified sites in spine C Reactive Protein Today M45.9 - Ankylosing spondylitis of unspecified sites in spine Coding Level of Care Code Est Pt Prev Care >65y(13134) Diagnoses Annual physical exam Z00.00 Ankylosing spondylitis M45.9 Achalasia K22.0 GERD (gastroesophageal reflux disease) K21.9 Pulmonary nodules R91.8 Cough R05.9 Impaired glucose tolerance R73.02 Essential hypertension I10 Hypertension type: essential hypertension Vitamin D deficiency E55.9 Hypercholesterolemia E78.00
== END 2023-12-17 09:45 | disposition home or self-care (01) ==
PROVIDERS: PCP Internal Medicine; Visit Provider Internal Medicine
DX: Z00.00 Encounter for general adult medical examination without abnormal findings (principal); M45.9 Ankylosing spondylitis of unspecified sites in spine; K22.0 Achalasia of cardia; K21.9 Gastro-esophageal reflux disease without esophagitis; R91.8 Other nonspecific abnormal finding of lung field; R05.9 Cough, unspecified; R73.02 Impaired glucose tolerance (oral); I10 Essential (primary) hypertension; E55.9 Vitamin D deficiency, unspecified; E78.00 Pure hypercholesterolemia, unspecified
CPT/HCPCS: 99397

== ENCOUNTER 2024-01-13 10:15 | Outpatient (REF) | payer MEDICARE, SELFPAY | END 2024-01-13 10:16 | disposition home or self-care (01) | LOC: HO.MRI 10:15 | PROVIDERS: PCP Internal Medicine; Visit Provider Internal Medicine | DX: Z13.89 Encounter for screening for other disorder (principal) ==

== ENCOUNTER 2024-01-21 20:52 | Emergency (ER) | payer MEDICARE, SELFPAY ==
[2024-01-21 20:56] VITALS: BP 155/68; PULSE 74; RESP 18; TEMP 36.8; O2SAT 96; BMI 37.1
--- NOTE | 2024-01-21 23:16 | ED_ITS ---
HPI - Skin/Abscess/Foreign Bdy General Chief complaint: Skin/Abscess/Foreign Body Stated complaint: finger infection Time Seen by Provider: 01/21/24 22:52 Source: patient and old records reviewed Mode of arrival: ambulatory Limitations: no limitations History of Present Illness ED Provider: MIRTA GAFFNEY narrative: 78 yo male with HTN, GERD not diabetes here with L thumb redness, swelling leonila inage he has tried to pop it 1 week ago tried to drain it 3 days ago. Has tried neosporin but still there this has never happened before. No fevers MD complaint: abscess/boil Onset (ago): week(s) (1) Location: L hand Severity: mild Relieving factors: none Exacerbating factors: palpation Context: none Associated symptoms: denies other symptoms Treatments prior to arrival: attempted to drain pus at home and OTC topical medication Related Data Home Medications ?Medication ?Instructions ?Recorded ?Confirmed aspirin 81 mg tablet,delayed 81 mg PO DAILY 12/06/20 12/17/23 release (Adult Low Dose Aspirin) multivitamin 1 tab PO DAILY 12/06/20 12/17/23 naproxen sodium 220 mg tablet 220 mg PO DAILY PRN 12/17/23 12/17/23 (Aleve) Previous Rx's ?Medication ?Instructions ?Recorded atenolol 50 mg tablet 50 mg PO DAILY 90 days #90 tabs 01/04/24 alprazolam 0.5 mg tablet See Rx Instructions PO .COMPLEX 01/13/24 PRN sleep #2 tabs amoxicillin 875 mg-potassium 1 tab PO BID #9 tabs 01/21/24 clavulanate 125 mg tablet Allergies Allergy/AdvReac Type Severity Reaction Status Date / Time No Known Allergies Allergy Verified 01/21/24 20:59 Review of Systems Review of Systems: Constitutional : No Fever, No Chills Cardiovascular : No Chest Pain, No SOB Respiratory : No Cough, No Sputum Gastrointestinal : No Nausea, No Vomiting, No Diarrhea, No abdominal Pain Genitourinary : No Dysuria, No Hematuria Musculoskeletal : No joint pain, No Myalgias, No Joint Swelling Skin : No Skin Lesions, positive skin rash Neuro : No Weakness, No Numbness, No Headache All other systems reviewed and are negative PMFSH Past Medical History Attestation statement: The following information was validated with the patient. Source: old records reviewed Medical History Cough Knee buckling Asthmatic bronchitis Impaired glucose tolerance Annual physical exam Hypercholesterolemia Thrombocytopenia Vitamin D deficiency Obesity (BMI 30-39.9) Hypertension Surgical History History of cholecystectomy History of inguinal hernia repair History of excision of pilonidal cyst Family History Family History (Updated 12/17/23 @ 09:21 by Adebayo Plunkett MD) Father Cancer Liver cancer Mother No problems noted. Sister Breast cancer Son In good health Social History Social History Housing: House Alcohol intake: current Alcohol intake frequency: does not drink Alcohol type: beer Comment: once a week 1 beer Patient Tobacco Use Status: Former Tobacco user Tobacco use type: Cigarette Years Smoked: 34 years old stopped Smoked in Last 30 Days: No e-Cigarette/Vaping Use: Never Used Second Hand Smoke Exposure: No Use of substances other than those prescribed or required for medical reasons: No Advance Directives: No Advance Directives Information Provided: No Do you have a plan to hurt others: No Plan service: No Current occupational status: retired Current occupation: rt hand Cognitive needs: No Hearing needs: No Vision needs: Yes Physical Exam Vital Signs: Vital Signs: Last Vital Signs Temp 98.2 F 01/21/24 20:56 Pulse 74 01/21/24 20:56 Resp 18 01/21/24 20:56 BP 155/68 H 01/21/24 20:56 Pulse Ox 96 01/21/24 20:56 O2 Del Method Room Air 01/21/24 20:56 BMI result Body Mass Index 37.1 Appearance: Alert. Oriented X3. No acute distress. Eyes: Pupils equal, round and reactive to light. ENT: Pharynx normal. Neck: Normal inspection. Neck supple. CVS: Pulses normal. Respiratory: No respiratory distress. Abdomen: atraumatic Skin: Skin warm and dry. Normal skin color. Normal skin turgor. Extremities: No lower extremity edema. L thumb paronychia noted no pain with ROM testing, isolated small paronychia on nail fold Neuro: Oriented X 3. No motor deficit. No sensory deficit. Medical Decision Making Medical Decision Making MDM Narrative: 78 yo male with PMH of GERD and HTN here with L thumb paronychia has attempted to drain it but it has recurred no issues moving thumb no fevers, n/v/d. Will I+D and start on augmentin. Differential Diagnosis Differential Diagnoses: The differential diagnosis associated with the presentation includes paronychia, cellulitis Independent Historian Clinical information obtained from an independent historian. History obtained from or confirmed by: Spouse External Record Review External record reviewed: Office record Prescription Management I considered prescription management with: Antibiotic Procedures Abscess I/D Site: other (thumb) Side (if applicable): left Technique: needle aspiration Amount of fluid expressed (mL): 0.5 Sent for culture/gram staining?: No Irrigation: No Packing used?: none Discharge Plan Discharge Clinical Impression: Acute paronychia of left thumb Patient Disposition: Home, Self-Care Instructions: Paronychia (ED) Additional Instructions: return for worsening symptoms, swelling increased pain and redness epsom salt soaks for the next 2 days twice a day for 15 minutes On amoxicillin-clavulanate, softer bowel movements are to be expected. Call your provider if you move your bowels more than 4 times a day, your bowel movements are almost all liquid, or you get a rash.? Prescriptions: New amoxicillin-pot clavulanate 875-125 mg tablet 1 tab PO BID Qty: 9 0RF No Action atenolol 50 mg tablet 50 mg PO DAILY 90 Days Qty: 90 2RF alprazolam 0.5 mg tablet See Rx Instructions PO .COMPLEX PRN (Reason: sleep) Qty: 2 0RF Rx Instructions: 1-2 tabs 1 hour before the procedure orally PRN; may cause drowsiness aspirin [Adult Low Dose Aspirin] 81 mg tablet,delayed release (DR/EC) 81 mg PO DAILY multivitamin Tablet 1 tab PO DAILY naproxen sodium [Aleve] 220 mg tablet 220 mg PO DAILY PRN Print Language: Hebrew
[2024-01-21] MEDS: Amoxicillin/Potassium Clav 875 MG TABLET PO (23:43)
[2024-01-21 23:46] VITALS: BP 155/68; PULSE 74; RESP 18; TEMP 36.8; O2SAT 96
== END 2024-01-21 23:47 | disposition home or self-care (01) ==
PROVIDERS: Emergency Provider Emergency Medicine; PCP Internal Medicine
DX: L03.012 Cellulitis of left finger (principal); M79.642 Pain in left hand; Z79.899 Other long term (current) drug therapy; Z87.891 Personal history of nicotine dependence
CPT/HCPCS: 10060; 99283; 99284

== ENCOUNTER → 2024-01-24 13:47 | Outpatient (BNVA) | payer MEDICARE, SELFPAY | PROVIDERS: PCP Internal Medicine; Visit Provider Nurse Practitioner Family ==

== ENCOUNTER 2024-02-12 12:54 | Outpatient (AMB) | payer MEDICARE, SELFPAY ==
[2024-02-12 12:57] VITALS: BP 122/74; PULSE 68; O2SAT 98; BMI 38.5
--- NOTE | 2024-02-12 12:57 | A.OFFVIS_ITS ---
Vital Signs 02/12/24 12:57 Height 5 ft 6 in Weight 238 lb 12.17 oz BMI 38.5 BP 122/74 Blood Pressure Location Lt brachial Position Sitting Pulse 68 Pulse Source Pulse Oximeter Pulse Oximetry (%) 98 Oxygen Delivery Method Room Air Intake Visit Reasons: Intake Note: New patient internally referral by Adebayo Plunkett for . Patient complains of left knee, states Cortizone shot helps.He states it's been 2 years, area in thumb swelling up after carpal tunnel surgery. He states he has been using 1 Aleve daily. Allergies No Known Allergies Allergy (Verified 02/12/24 13:01) HPI Comments Details: This is a 78-year-old male with history of generalized osteoarthritis who presents as a new patient to evaluate for ankylosing spondylitis. Patient has been having intermittent cough for more than a year. States that his cough is worse around 04:00. He denies any dysphagia. Tried sleeping using 3 pillows but there was no difference compared to 1 pillow. His barium swallow showed findings suggestive of ankylosing spondylitis. Over the last year patient has noted significant limitation of range of motion of his neck. Patient however denied any history of chronic back pain or prolonged stiffness. Denied any history of swollen joints. States that he has been taking Aleve regularly for bilateral thumb pain. Has any history suggestive of uveitis or colitis. Denies history of psoriasis. He is unaware of any family history of an autoimmune rheumatic disease. [facility] Medical History Cough Knee buckling Asthmatic bronchitis Impaired glucose tolerance Annual physical exam Hypercholesterolemia Thrombocytopenia Vitamin D deficiency Obesity (BMI 30-39.9) Hypertension Surgical History History of cholecystectomy History of inguinal hernia repair History of excision of pilonidal cyst Family History Father Cancer Liver cancer Mother No problems noted. Sister Breast cancer Son In good health Social History Housing: House Alcohol intake: current Alcohol intake frequency: does not drink Alcohol type: beer Comment: once a week 1 beer Patient Tobacco Use Status: Former Tobacco user Tobacco use type: Cigarette Years Smoked: 34 years old stopped e-Cigarette/Vaping Use: Never Used Second Hand Smoke Exposure: No service: No Current occupational status: retired Current occupation: rt hand Cognitive needs: No Hearing needs: No Vision needs: Yes Review of Systems Const Denies fever(s) and Denies weight loss Eyes Reports no additional complaints Musc Reports deformity, Reports arthralgias, Denies joint swelling and Reports limite d range of motion Physical Exam Vital Signs: Last Vital Signs Pulse 68 02/12/24 12:57 BP 122/74 02/12/24 12:57 Pulse Ox 98 02/12/24 12:57 Oxygen Delivery Method Room Air 02/12/24 12:57 BMI result Body Mass Index 38.5 Const General: cooperative, healthy appearing and comfortable Nutritional Appearance: obese morbidly obese Orientation/consciousness: patient oriented x3 Limitations: no limitations HEENT Head: Yes normocephalic and Yes atraumatic Mouth: moist mucous membranes Neck Other: Significantly limited range of motion of neck Resp Effort & Inspection: normal respiratory effort and able to speak in complete sentences Auscultation: clear to auscultation bilaterally Skin General skin exam: no rashes or lesions noted Neuro General: patient oriented x3 Extrem Other: Osteoarthritic changes of both hands with no active synovitis 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 No elbow pain with flexion-extension Normal range of motion of shoulders No nail pitting Normal nailfold capillaroscopy Negative straight leg raise test bilaterally Emerson test 10-14 cm Negative Fabere test bilaterally No knee pain with flexion-extension bilaterally No ankle swelling or tenderness bilaterally Negative MTP squeeze test bilaterally Results Reviewed Results Reviewed: Ordering Physician: Adebayo Plunkett MD Date of Service: 11/28/23 Procedure(s): FL upper GI w air w Ba Swallow Accession Number(s): [id number] cc: Adebayo Plunkett MD~ EXAMINATION: XR FLUOROSCOPY UPPER GI WITH AIR CLINICAL INFORMATION: Dysphagia COMPARISON: CT chest June 2023 TECHNIQUE: Fluoroscopic air contrast upper GI examination was performed utilizing standard techniques with thin and thick barium and effervescent granules. Numerous spot images were obtained. FINDINGS: Of note, the cervical spine is fused from C2 through C7 by flowing anterior syndesmophytes. This finding is highly concerning for ankylosing spondylitis. At C3, there is mild mass effect upon the hypopharynx, likely not clinically significant. Review of recent CT examination of the chest 06/21/2023 shows pathognomonic findings for ankylosing spondylitis. Lateral cine images of the oropharynx and hypopharynx demonstrate normal swallow mechanism with normal epiglottic inversion and soft palate elevation. No tracheal penetration, glottic or subglottic aspiration identified. No nasopharyngeal reflux present. Hypopharyngeal structures appear normal without evidence of mass or diverticulum. There was no significant cricopharyngeal achalasia. Dual and single contrast images of the esophagus demonstrate a normal caliber and mucosal pattern. 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 There is a high-grade extrinsic impression on the posterior wall of the lower cervical/upper thoracic esophagus. This appears to be secondary to a large anterior syndesmophyte arising from T1-T2. This may be causing a functional obstruction episodically. There is to and fro motion of the barium column with nonpropulsive tertiary contractions noted throughout the esophagus. There is mild to moderate narrowing of the GE junction above the hiatal hernia. A small type I hiatal hernia is present. No significant gastroesophageal reflux was seen during the course of the examination and on reflux views. Dual contrast and single contrast images of the stomach demonstrated a normal contour. There are multiple foci of contrast pooling in the fundus and body the stomach that may represent small superficial aphthous ulcers. No masses are seen. Contrast freely passed into the gastric antrum and duodenal bulb without delay. Single and air-contrast images of the duodenal bulb demonstrate no abnormality. The duodenal sweep has a normal appearance, course, and mucosal fold appearance. There is no malrotation. The imaged proximal jejunum has a normal fold pattern and caliber. FLUOROSCOPY TIME: 5 minutes 8 seconds Number of Spot Images: 12 Number of Cine: 9 DOSE AREA PRODUCT: [id number] uGy-m2 (microgray-meter squared) FL/FL upper GI w air w Ba Swallow IMPRESSION: 1. 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 This is unlikely contributing to the patient's symptoms. 2. High-grade extrinsic compression upon the posterior wall of the upper esophagus secondary to a large syndesmophyte arising ventrally from T1-T2. Based on his recent CT scan in June 2023, this appears to be causing significant mass effect upon the esophagus at this level. Review this CT of the chest 06/21/2023 demonstrates bony findings pathognomonic of ankylosing spondylitis. 3. Esophageal dysmotility. 4. Mild to moderate narrowing of the GE junction above the hiatal hernia. This may represent achalasia, or a benign stricture. Recommend correlation with EGD. 5. Small type I hiatal hernia. 6. Multiple foci of contrast pooling in the fundus and body of the stomach that may represent small superficial aphthous ulcers. 7. 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 At C3, there is mild mass effect upon the hypopharynx, likely clinically insignificant. Assessment & Plan Assessment & Plan (1) Ankylosing spondylitis: Code(s): M45.9 - Ankylosing spondylitis of unspecified sites in spine Category: Medical Qualifiers: Ankylosing spondylitis location: cervicothoracic region Qualified Code(s): M45.3 - Ankylosing spondylitis of cervicothoracic region Plan: This is a 78-year-old male who presents for evaluation of ankylosing spondylitis. Recent barium swallow study to evaluate for cough and dysphagia showed findings suggestive of ankylosing spondylitis with large syndesmophytes causing some compression on the esophagus. Upon evaluation patient has significant osteoarthritic changes. Patient denies the classic chronology of symptoms of chronic spinal pain and prolonged stiffness. There is no history of uveitis, psoriasis or colitis. There is no known h family history of an autoimmune rheumatic disease It might be hard to differentiate between dosing spondylitis and DISH on imaging alone. However I will order dedicated views of the spine. I will check his inflammatory markers. 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 and get their opinion about these syndesmophytes, if the territory sales manager medical feels that these are definitely contributory to his dysphagia, we can refer patient to a spine surgeon to evaluate for resection Follow-up in 6-8 weeks Plan I spent 49 minutes reviewing patient's chart, evaluating patient, ordering diagnostic workup, counseling patient and documenting in the chart Orders: Orders Erythrocyte Sedimentation Rate Today M45.9 - Ankylosing spondylitis of unspecified sites in spine Hepatitis A,B,C Profile Today Z11.59 - Encounter for screening for other viral diseases Immunofixation Pnl, Serum Today M45.9 - Ankylosing spondylitis of unspecified sites in spine Protein Electrophoresis, Serum Today M45.9 - Ankylosing spondylitis of unspecified sites in spine HLA B27 Today M45.9 - Ankylosing spondylitis of unspecified sites in spine XR sacroiliac joint min 3V Today M45.9 - Ankylosing spondylitis of unspecified sites in spine XR hand wrist RT Today M45.9 - Ankylosing spondylitis of unspecified sites in spine Complete Blood Count Auto Diff Today M45.9 - Ankylosing spondylitis of unspecified sites in spine Comprehensive Met. Panel Today M45.9 - Ankylosing spondylitis of unspecified sites in spine C Reactive Protein Today M45.9 - Ankylosing spondylitis of unspecified sites in spine T Spot TB Today Z11.7 - Encounter for testing for latent tuberculosis infection XR cervical spine 4V Today M45.9 - Ankylosing spondylitis of unspecified sites in spine XR lumbar spine 4V min Today M45.9 - Ankylosing spondylitis of unspecified sites in spine XR thoracic spine 3V Today M45.9 - Ankylosing spondylitis of unspecified sites in spine XR hand wrist LT Today M45.9 - Ankylosing spondylitis of unspecified sites in spine Coding Level of Care Code New Pt Level 4 (61217) Diagnoses Ankylosing spondylitis of cervicothoracic region M45.3 Ankylosing spondylitis location: cervicothoracic region
== END 2024-02-12 13:25 | disposition home or self-care (01) ==
PROVIDERS: PCP Internal Medicine; Visit Provider Student in an Organized Health Care Education/Training Program
DX: M45.3 Ankylosing spondylitis of cervicothoracic region (principal)
CPT/HCPCS: 99204

== ENCOUNTER 2024-02-12 12:54 | Outpatient (REF) | payer MEDICARE, SELFPAY ==
--- NOTE | ~2024-02-12 | XR_ITS ---
EXAMINATION: XR HAND/WRIST, RIGHT XR HAND/WRIST, LEFT CLINICAL INFORMATION: Ankylosing spondylitis. COMPARISON: None available. TECHNIQUE: PA, lateral, and oblique views of the each hand and wrist. FINDINGS: RIGHT HAND/WRIST: Radiocarpal compartment: There is nonuniform joint space narrowing of the radiocarpal compartment. Small marginal osteophytes along the radial aspect of the proximal articular surface of the lunate. Overall mild arthrosis. 1st carpometacarpal joint: There is nonuniform up to severe joint space narrowing with marginal osteophytes and subchondral cysts, indicative of moderate osteoarthritis. First metacarpophalangeal joint joint, there is a prominent marginal osteophyte with minimal joint space narrowing, indicative of mild osteoarthritis. 4th metacarpophalangeal joint: There is a prominent marginal osteophyte and minimal joint space narrowing, indicative of mild osteoarthritis. INTERPHALANGEAL JOINTS: There are no marginal erosions. There is no joint ankylosis. There Is moderate osteoarthritis of the 5th DIP joint with marked joint space narrowing and marginal osteophytes. [id number] osteoarthritis involves the IP joint of the thumb, as well as the 2nd, 3rd and 4th DIP joints, manifested by nonuniform joint space narrowing and prominent dorsal marginal osteophytes. There is some capsular ossification scattered about the PIP joints dorsally, but no definite joint space narrowing or marginal osteophytes. LEFT HAND/WRIST: No marginal erosions. 1st carpometacarpal joint. There is prominent joint space narrowing and marginal osteophytes, indicative of moderate osteoarthritis. Mild osteoarthritis of the radiocarpal compartment, manifested by small subchondral cysts and marginal osteophytes, without joint space narrowing. Metacarpophalangeal joints: Normal. Interphalangeal joint: There is moderate osteoarthritis of the 3rd, 4th and 5th DIP joints, manifested by joint space narrowing and marginal osteophytes. mild osteoarthritis about the remaining interphalangeal joints manifested by marginal osteophytes with mild joint space narrowing. XR/XR hand wrist RT IMPRESSION: RIGHT HAND AND WRIST: Osteoarthritis with degenerative changes involving multiple joints as detailed above, most prominent in the 1st carpometacarpal joint and interphalangeal joints. No marginal erosions or signs of definite inflammatory arthropathy. LEFT HAND AND WRIST: Osteoarthritis with degenerative changes, most prominent in the 1st carpometacarpal joint. Electronically signed by: Eyad Craft MD 03/01/2024 08:50 PM EDT RP
--- NOTE | ~2024-02-12 | XR_ITS ---
EXAMINATION: XR thoracic spine 3V (accession [id number]), XR cervical spine 4V (accession [id number]), XR sacroiliac joint min 3V (accession [id number]), XR lumbar spine 4V min (accession [id number]) CLINICAL INFORMATION: Ankylosing spondylitis COMPARISON: None TECHNIQUE: 5 views of the cervical spine and 3 views of the thoracic spine and 5 views of the lumbar spine. AP and oblique views of the sacroiliac joints FINDINGS: CERVICAL SPINE: The cervical spine is visualized to the level of C6-C7 on the lateral view. Loss of the usual cervical spine lordosis which may be due to positioning or muscle spasm. Vertebral body heights are maintained. Lateral masses of C1 are well aligned on C2. Visualized portion of the dens is intact. Multilevel anterior flowing syndesmophytes with partial ankylosis of the anterior aspects of the C4-C5 vertebral bodies. Multilevel facet arthropathy. Mild multilevel neural foraminal narrowing on the right and moderate to severe multilevel neural foraminal narrowing on the left worst at C3-C4 and C5-C6. No prevertebral soft tissue swelling. THORACIC SPINE: Vertebral body heights are maintained. Alignment is maintained. Moderate multilevel degenerative disease with loss of disc space height. Multilevel anterior syndesmophytes and linear ossification along the central spine suggesting interspinous ligament ossification compatible with history of ankylosing spondylitis. Paravertebral soft tissues are unremarkable. LUMBAR SPINE: 5 nonrib-bearing lumbar-type vertebral bodies. Vertebral body heights are maintained. Grade 1 retrolisthesis of L4 on L5 and grade 1 anterolisthesis of L5 on S1, with question of possible pars defects at L5 though difficult to confirm on the oblique radiographs. Moderate multilevel degenerative disc disease with loss of disc space height and multilevel anterior disc osteophyte complexes suggesting diffuse idiopathic skeletal hyperostosis. Atherosclerosis of the abdominal aorta. Right upper quadrant cholecystectomy clips. SI JOINTS: Partial ankylosis of the right sacroiliac joint with suspected periarticular erosions. Left sacroiliac joint space is maintained. Mild osteoarthritis of the hips. Sacral arcuate lines are intact without appreciable sacral fracture. Soft tissues are unremarkable. XR/XR sacroiliac joint min 3V IMPRESSION: CERVICAL SPINE: Multilevel anterior flowing syndesmophytes with partial ankylosis of the anterior aspects of the C4-C5 vertebral bodies, which can be seen in the setting of ankylosing spondylitis. Multilevel facet arthropathy resulting in mild multilevel neural foraminal narrowing on the right and moderate to severe multilevel neural foraminal narrowing on the left were stat C3-C4 and C5-C6. THORACIC SPINE: Moderate multilevel degenerative disease. Multilevel anterior syndesmophytes and linear ossification along the central spine suggesting interspinous ligament ossification compatible with history of ankylosing spondylitis. LUMBAR SPINE: Grade 1 retrolisthesis of L4 on L5 and grade 1 anterolisthesis of L5 on S1, with question of possible pars defects at L5 though difficult to confirm on the oblique radiographs. Moderate multilevel degenerative disc disease and multilevel anterior disc osteophyte complexes suggesting diffuse idiopathic skeletal hyperostosis. SI JOINTS: Partial ankylosis of the right sacroiliac joint with suspected periarticular erosions. Left sacroiliac joint space is maintained. Mild osteoarthritis of the hips Electronically signed by: Chelsi Al MD 03/17/2024 02:08 PM EDT
--- NOTE | ~2024-02-12 | XR_ITS ---
EXAMINATION: XR thoracic spine 3V (accession [id number]), XR cervical spine 4V (accession [id number]), XR sacroiliac joint min 3V (accession [id number]), XR lumbar spine 4V min (accession [id number]) CLINICAL INFORMATION: Ankylosing spondylitis COMPARISON: None TECHNIQUE: 5 views of the cervical spine and 3 views of the thoracic spine and 5 views of the lumbar spine. AP and oblique views of the sacroiliac joints FINDINGS: CERVICAL SPINE: The cervical spine is visualized to the level of C6-C7 on the lateral view. Loss of the usual cervical spine lordosis which may be due to positioning or muscle spasm. Vertebral body heights are maintained. Lateral masses of C1 are well aligned on C2. Visualized portion of the dens is intact. Multilevel anterior flowing syndesmophytes with partial ankylosis of the anterior aspects of the C4-C5 vertebral bodies. Multilevel facet arthropathy. Mild multilevel neural foraminal narrowing on the right and moderate to severe multilevel neural foraminal narrowing on the left worst at C3-C4 and C5-C6. No prevertebral soft tissue swelling. THORACIC SPINE: Vertebral body heights are maintained. Alignment is maintained. Moderate multilevel degenerative disease with loss of disc space height. Multilevel anterior syndesmophytes and linear ossification along the central spine suggesting interspinous ligament ossification compatible with history of ankylosing spondylitis. Paravertebral soft tissues are unremarkable. LUMBAR SPINE: 5 nonrib-bearing lumbar-type vertebral bodies. Vertebral body heights are maintained. Grade 1 retrolisthesis of L4 on L5 and grade 1 anterolisthesis of L5 on S1, with question of possible pars defects at L5 though difficult to confirm on the oblique radiographs. Moderate multilevel degenerative disc disease with loss of disc space height and multilevel anterior disc osteophyte complexes suggesting diffuse idiopathic skeletal hyperostosis. Atherosclerosis of the abdominal aorta. Right upper quadrant cholecystectomy clips. SI JOINTS: Partial ankylosis of the right sacroiliac joint with suspected periarticular erosions. Left sacroiliac joint space is maintained. Mild osteoarthritis of the hips. Sacral arcuate lines are intact without appreciable sacral fracture. Soft tissues are unremarkable. XR/XR thoracic spine 3V IMPRESSION: CERVICAL SPINE: Multilevel anterior flowing syndesmophytes with partial ankylosis of the anterior aspects of the C4-C5 vertebral bodies, which can be seen in the setting of ankylosing spondylitis. Multilevel facet arthropathy resulting in mild multilevel neural foraminal narrowing on the right and moderate to severe multilevel neural foraminal narrowing on the left were stat C3-C4 and C5-C6. THORACIC SPINE: Moderate multilevel degenerative disease. Multilevel anterior syndesmophytes and linear ossification along the central spine suggesting interspinous ligament ossification compatible with history of ankylosing spondylitis. LUMBAR SPINE: Grade 1 retrolisthesis of L4 on L5 and grade 1 anterolisthesis of L5 on S1, with question of possible pars defects at L5 though difficult to confirm on the oblique radiographs. Moderate multilevel degenerative disc disease and multilevel anterior disc osteophyte complexes suggesting diffuse idiopathic skeletal hyperostosis. SI JOINTS: Partial ankylosis of the right sacroiliac joint with suspected periarticular erosions. Left sacroiliac joint space is maintained. Mild osteoarthritis of the hips Electronically signed by: Chelsi Al MD 03/17/2024 02:08 PM EDT
--- NOTE | ~2024-02-12 | XR_ITS ---
EXAMINATION: XR thoracic spine 3V (accession [id number]), XR cervical spine 4V (accession [id number]), XR sacroiliac joint min 3V (accession [id number]), XR lumbar spine 4V min (accession [id number]) CLINICAL INFORMATION: Ankylosing spondylitis COMPARISON: None TECHNIQUE: 5 views of the cervical spine and 3 views of the thoracic spine and 5 views of the lumbar spine. AP and oblique views of the sacroiliac joints FINDINGS: CERVICAL SPINE: The cervical spine is visualized to the level of C6-C7 on the lateral view. Loss of the usual cervical spine lordosis which may be due to positioning or muscle spasm. Vertebral body heights are maintained. Lateral masses of C1 are well aligned on C2. Visualized portion of the dens is intact. Multilevel anterior flowing syndesmophytes with partial ankylosis of the anterior aspects of the C4-C5 vertebral bodies. Multilevel facet arthropathy. Mild multilevel neural foraminal narrowing on the right and moderate to severe multilevel neural foraminal narrowing on the left worst at C3-C4 and C5-C6. No prevertebral soft tissue swelling. THORACIC SPINE: Vertebral body heights are maintained. Alignment is maintained. Moderate multilevel degenerative disease with loss of disc space height. Multilevel anterior syndesmophytes and linear ossification along the central spine suggesting interspinous ligament ossification compatible with history of ankylosing spondylitis. Paravertebral soft tissues are unremarkable. LUMBAR SPINE: 5 nonrib-bearing lumbar-type vertebral bodies. Vertebral body heights are maintained. Grade 1 retrolisthesis of L4 on L5 and grade 1 anterolisthesis of L5 on S1, with question of possible pars defects at L5 though difficult to confirm on the oblique radiographs. Moderate multilevel degenerative disc disease with loss of disc space height and multilevel anterior disc osteophyte complexes suggesting diffuse idiopathic skeletal hyperostosis. Atherosclerosis of the abdominal aorta. Right upper quadrant cholecystectomy clips. SI JOINTS: Partial ankylosis of the right sacroiliac joint with suspected periarticular erosions. Left sacroiliac joint space is maintained. Mild osteoarthritis of the hips. Sacral arcuate lines are intact without appreciable sacral fracture. Soft tissues are unremarkable. XR/XR cervical spine 4V IMPRESSION: CERVICAL SPINE: Multilevel anterior flowing syndesmophytes with partial ankylosis of the anterior aspects of the C4-C5 vertebral bodies, which can be seen in the setting of ankylosing spondylitis. Multilevel facet arthropathy resulting in mild multilevel neural foraminal narrowing on the right and moderate to severe multilevel neural foraminal narrowing on the left were stat C3-C4 and C5-C6. THORACIC SPINE: Moderate multilevel degenerative disease. Multilevel anterior syndesmophytes and linear ossification along the central spine suggesting interspinous ligament ossification compatible with history of ankylosing spondylitis. LUMBAR SPINE: Grade 1 retrolisthesis of L4 on L5 and grade 1 anterolisthesis of L5 on S1, with question of possible pars defects at L5 though difficult to confirm on the oblique radiographs. Moderate multilevel degenerative disc disease and multilevel anterior disc osteophyte complexes suggesting diffuse idiopathic skeletal hyperostosis. SI JOINTS: Partial ankylosis of the right sacroiliac joint with suspected periarticular erosions. Left sacroiliac joint space is maintained. Mild osteoarthritis of the hips Electronically signed by: Chelsi Al MD 03/17/2024 02:08 PM EDT
--- NOTE | ~2024-02-12 | XR_ITS ---
EXAMINATION: XR thoracic spine 3V (accession [id number]), XR cervical spine 4V (accession [id number]), XR sacroiliac joint min 3V (accession [id number]), XR lumbar spine 4V min (accession [id number]) CLINICAL INFORMATION: Ankylosing spondylitis COMPARISON: None TECHNIQUE: 5 views of the cervical spine and 3 views of the thoracic spine and 5 views of the lumbar spine. AP and oblique views of the sacroiliac joints FINDINGS: CERVICAL SPINE: The cervical spine is visualized to the level of C6-C7 on the lateral view. Loss of the usual cervical spine lordosis which may be due to positioning or muscle spasm. Vertebral body heights are maintained. Lateral masses of C1 are well aligned on C2. Visualized portion of the dens is intact. Multilevel anterior flowing syndesmophytes with partial ankylosis of the anterior aspects of the C4-C5 vertebral bodies. Multilevel facet arthropathy. Mild multilevel neural foraminal narrowing on the right and moderate to severe multilevel neural foraminal narrowing on the left worst at C3-C4 and C5-C6. No prevertebral soft tissue swelling. THORACIC SPINE: Vertebral body heights are maintained. Alignment is maintained. Moderate multilevel degenerative disease with loss of disc space height. Multilevel anterior syndesmophytes and linear ossification along the central spine suggesting interspinous ligament ossification compatible with history of ankylosing spondylitis. Paravertebral soft tissues are unremarkable. LUMBAR SPINE: 5 nonrib-bearing lumbar-type vertebral bodies. Vertebral body heights are maintained. Grade 1 retrolisthesis of L4 on L5 and grade 1 anterolisthesis of L5 on S1, with question of possible pars defects at L5 though difficult to confirm on the oblique radiographs. Moderate multilevel degenerative disc disease with loss of disc space height and multilevel anterior disc osteophyte complexes suggesting diffuse idiopathic skeletal hyperostosis. Atherosclerosis of the abdominal aorta. Right upper quadrant cholecystectomy clips. SI JOINTS: Partial ankylosis of the right sacroiliac joint with suspected periarticular erosions. Left sacroiliac joint space is maintained. Mild osteoarthritis of the hips. Sacral arcuate lines are intact without appreciable sacral fracture. Soft tissues are unremarkable. XR/XR lumbar spine 4V min IMPRESSION: CERVICAL SPINE: Multilevel anterior flowing syndesmophytes with partial ankylosis of the anterior aspects of the C4-C5 vertebral bodies, which can be seen in the setting of ankylosing spondylitis. Multilevel facet arthropathy resulting in mild multilevel neural foraminal narrowing on the right and moderate to severe multilevel neural foraminal narrowing on the left were stat C3-C4 and C5-C6. THORACIC SPINE: Moderate multilevel degenerative disease. Multilevel anterior syndesmophytes and linear ossification along the central spine suggesting interspinous ligament ossification compatible with history of ankylosing spondylitis. LUMBAR SPINE: Grade 1 retrolisthesis of L4 on L5 and grade 1 anterolisthesis of L5 on S1, with question of possible pars defects at L5 though difficult to confirm on the oblique radiographs. Moderate multilevel degenerative disc disease and multilevel anterior disc osteophyte complexes suggesting diffuse idiopathic skeletal hyperostosis. SI JOINTS: Partial ankylosis of the right sacroiliac joint with suspected periarticular erosions. Left sacroiliac joint space is maintained. Mild osteoarthritis of the hips Electronically signed by: Chelsi Al MD 03/17/2024 02:08 PM EDT
--- NOTE | ~2024-02-12 | XR_ITS ---
EXAMINATION: XR HAND/WRIST, RIGHT XR HAND/WRIST, LEFT CLINICAL INFORMATION: Ankylosing spondylitis. COMPARISON: None available. TECHNIQUE: PA, lateral, and oblique views of the each hand and wrist. FINDINGS: RIGHT HAND/WRIST: Radiocarpal compartment: There is nonuniform joint space narrowing of the radiocarpal compartment. Small marginal osteophytes along the radial aspect of the proximal articular surface of the lunate. Overall mild arthrosis. 1st carpometacarpal joint: There is nonuniform up to severe joint space narrowing with marginal osteophytes and subchondral cysts, indicative of moderate osteoarthritis. First metacarpophalangeal joint joint, there is a prominent marginal osteophyte with minimal joint space narrowing, indicative of mild osteoarthritis. 4th metacarpophalangeal joint: There is a prominent marginal osteophyte and minimal joint space narrowing, indicative of mild osteoarthritis. INTERPHALANGEAL JOINTS: There are no marginal erosions. There is no joint ankylosis. There Is moderate osteoarthritis of the 5th DIP joint with marked joint space narrowing and marginal osteophytes. [id number] osteoarthritis involves the IP joint of the thumb, as well as the 2nd, 3rd and 4th DIP joints, manifested by nonuniform joint space narrowing and prominent dorsal marginal osteophytes. There is some capsular ossification scattered about the PIP joints dorsally, but no definite joint space narrowing or marginal osteophytes. LEFT HAND/WRIST: No marginal erosions. 1st carpometacarpal joint. There is prominent joint space narrowing and marginal osteophytes, indicative of moderate osteoarthritis. Mild osteoarthritis of the radiocarpal compartment, manifested by small subchondral cysts and marginal osteophytes, without joint space narrowing. Metacarpophalangeal joints: Normal. Interphalangeal joint: There is moderate osteoarthritis of the 3rd, 4th and 5th DIP joints, manifested by joint space narrowing and marginal osteophytes. mild osteoarthritis about the remaining interphalangeal joints manifested by marginal osteophytes with mild joint space narrowing. XR/XR hand wrist LT IMPRESSION: RIGHT HAND AND WRIST: Osteoarthritis with degenerative changes involving multiple joints as detailed above, most prominent in the 1st carpometacarpal joint and interphalangeal joints. No marginal erosions or signs of definite inflammatory arthropathy. LEFT HAND AND WRIST: Osteoarthritis with degenerative changes, most prominent in the 1st carpometacarpal joint. Electronically signed by: Eyad Craft MD 03/01/2024 08:50 PM EDT RP
[2024-02-12 13:51] LABS: MANUAL DIFF FLAG NO
[2024-02-12 14:12] LABS: Basophils Percent Auto 0.6 % (0-2); Eosinophils Absolute Auto 0.1 X10*3/uL (0.0-0.4); Eosinophils Percent Auto 1.6 % (0-4); Hematocrit 44.4 % (42.0-52.0); Hemoglobin 15.5 g/dl (14.0-18.0); Imm Gran Abs Auto 0.02 X10*3/uL (0.00-0.03); Imm Gran Pct Auto 0.4 % (0.0-0.4); Lymphocytes Absolute Auto 1.4 X10*3/uL (1.2-4.9); Lymphocytes Percent Auto 27.1 % (20-40); Mean Corpuscular HGB Conc 34.9 g/dl (31.0-36.0); Mean Corpuscular Hemoglobin 33.3 pg (27.0-33.0); Mean Corpuscular Volume 95.3 fL (80.0-98.0); Mean Platelet Volume 10.1 fL (9.4-12.4); Monocytes Absolute Auto 0.4 X10*3/uL (0.1-1.2); Monocytes Percent Auto 8.8 % (2-11); Neutrophils Absolute Auto 3.1 x10*3/uL (2.0-8.3); Neutrophils Percent Auto 61.5 % (45-73); Platelet Count 127 X10*3/uL (160-400); Red Blood Count 4.66 X10*6/uL (4.60-5.80); Red Cell Distribution Width 13.3 % (11.0-16.0)
[2024-02-12 14:36] LABS: Alanine Aminotransferase 39 U/L (0-40); Albumin Level 4.3 g/dL (3.5-5.0); Alkaline Phosphatase 60 U/L (39-117); Anion Gap 12 (12-20); Aspartate Amino Transferase 27 U/L (5-37); Bilirubin Total 0.6 mg/dL (0.0-1.0); Blood Urea Nitrogen 12 mg/dL (9-16); C Reactive Protein 0.11 mg/dL (< or = 0.50); Calcium 9.9 mg/dL (8.4-10.2); Carbon Dioxide 28 mmol/L (22-29); Chloride 104 mmol/L (96-108); Estimated Glomerular Filt Rate > 60; Glucose Random 97 mg/dL (60-115); Potassium 4.5 mmol/L (3.3-5.1); Sodium 139 mmol/L (135-145); Total Protein 7.1 g/dL (6.5-8.0)
[2024-02-12 14:51] LABS: Erythrocyte Sedimentation Rate 4 MM/HR (0-15)
[2024-02-13 08:12] LABS: HBS Num1 0.55 mIU/mL (0-7.99); HBc Num1 0.12 S/CO (0.00-0.79); HBsAGNum1 0.23 S/CO (0.00-0.99); Hepatitis A Antibody IgM 0.13 Index (0-0.79); Hepatitis B Core Antibody Nonreactive (Nonreactive); Hepatitis B Surface Antigen Negative (Negative); ~HepC Num1 0.09 S/CO (0.00-0.79); ~Hepatitis A Antibody IgM Nonreactive (Nonreactive); ~Hepatitis B Surface Antibody NONREACTIVE (Nonreactive); ~Hepatitis C Antibody Nonreactive (Nonreactive)
[2024-02-13 11:43] LABS: Prot Elec - Albumin 4.2 g/dL (3.8-4.8); Prot Elec - Alpha1 0.2 g/dL (0.2-0.3); Prot Elec - Alpha2 0.6 g/dL (0.5-0.9); Prot Elec - Beta 1 0.5 g/dL (0.4-0.6); Prot Elec - Beta 2 0.4 g/dL (0.2-0.5); Prot Elec - Gamma 0.9 g/dL (0.8-1.7); Prot Elec - Total Protein 6.7 g/dL (6.1-8.1)
[2024-02-13 21:59] LABS: IgA 250 mg/dL (70-320); IgG 1019 mg/dL (600-1540); IgM 59 mg/dL (50-300)
[2024-02-15 07:18] LABS: TS Negative Control Passed; TS Panel A 0; TS Panel B 0; TS Positive Control Passed; TSpotTB Negative (Negative)
[2024-02-18 23:08] LABS: HLA B27 Negative (Negative)
== END 2024-02-12 12:55 | disposition home or self-care (01) ==
LOC: HO.XRAY 12:54
PROVIDERS: PCP Internal Medicine; Visit Provider Student in an Organized Health Care Education/Training Program
DX: M45.3 Ankylosing spondylitis of cervicothoracic region (principal); Z11.59 Encounter for screening for other viral diseases; Z11.7 Encounter for testing for latent tuberculosis infection
CPT/HCPCS: 36415; 72050; 72072; 72110; 72202; 73110; 73130; 80053; 82784; 84165; 85025; 85652; 86140; 86334; 86481; 86704; 86706; 86709; 86803; 86812; 87340; 99202

== ENCOUNTER 2024-02-22 08:57 | Outpatient (REF) | payer MEDICARE, SELFPAY ==
[2024-02-22 09:14] LABS: MANUAL DIFF FLAG NO
[2024-02-22 09:38] LABS: Basophils Percent Auto 0.6 % (0-2); Eosinophils Absolute Auto 0.1 X10*3/uL (0.0-0.4); Eosinophils Percent Auto 2.3 % (0-4); Hematocrit 45.2 % (42.0-52.0); Hemoglobin 15.2 g/dl (14.0-18.0); Imm Gran Abs Auto 0.02 X10*3/uL (0.00-0.03); Imm Gran Pct Auto 0.4 % (0.0-0.4); Lymphocytes Absolute Auto 1.9 X10*3/uL (1.2-4.9); Lymphocytes Percent Auto 39.3 % (20-40); Mean Corpuscular HGB Conc 33.6 g/dl (31.0-36.0); Mean Corpuscular Hemoglobin 32.2 pg (27.0-33.0); Mean Corpuscular Volume 95.8 fL (80.0-98.0); Monocytes Absolute Auto 0.4 X10*3/uL (0.1-1.2); Monocytes Percent Auto 8.9 % (2-11); Neutrophils Absolute Auto 2.3 x10*3/uL (2.0-8.3); Neutrophils Percent Auto 48.5 % (45-73); Platelet Count 119 X10*3/uL (160-400); Red Blood Count 4.72 X10*6/uL (4.60-5.80); Red Cell Distribution Width 13.4 % (11.0-16.0); White Blood Count 4.7 X10*3/uL (4.8-10.8)
[2024-02-22 09:54] LABS: Estimated Average Glucose 117 mg/dL; Hemoglobin A1C 156.5086 umol/L; Hemoglobin A1c % 5.7 % (<6.0)
[2024-02-22 10:33] LABS: Alanine Aminotransferase 34 U/L (0-40); Alkaline Phosphatase 64 U/L (39-117); Anion Gap 12 (12-20); Aspartate Amino Transferase 26 U/L (5-37); Bilirubin Total 0.8 mg/dL (0.0-1.0); Blood Urea Nitrogen 12 mg/dL (9-16); C Reactive Protein 0.19 mg/dL (< or = 0.50); Calcium 9.3 mg/dL (8.4-10.2); Carbon Dioxide 26 mmol/L (22-29); Chloride 107 mmol/L (96-108); Cholesterol 170 mg/dL (<200); Estimated Glomerular Filt Rate > 60; Glucose Random 108 mg/dL (60-115); HDL Cholesterol 36 mg/dL (>40); LDL Cholesterol Calculated 102 mg/dL (<100); Potassium 4.3 mmol/L (3.3-5.1); Sodium 141 mmol/L (135-145); Total Protein 6.7 g/dL (6.5-8.0); Triglycerides 163 mg/dL (<150)
[2024-02-22 10:40] LABS: Erythrocyte Sedimentation Rate 3 MM/HR (0-15)
[2024-02-22 10:57] LABS: Free T4 (Free Thyroxine) 1.03 ng/dL (0.71-1.85); Thyroid Stimulating Hormone 0.88 uIU/mL (0.32-4.0)
[2024-02-22 10:58] LABS: Folate 12.9 ng/mL (> or = 4.0); Vitamin B12 521 pg/mL (200-900)
== END 2024-02-22 08:58 | disposition home or self-care (01) ==
LOC: HO.LAB 08:57
PROVIDERS: PCP Internal Medicine; Visit Provider Internal Medicine
DX: R73.02 Impaired glucose tolerance (oral) (principal); E78.00 Pure hypercholesterolemia, unspecified; M45.9 Ankylosing spondylitis of unspecified sites in spine; R93.2 Abnormal findings on diagnostic imaging of liver and biliary tract
CPT/HCPCS: 36415; 80053; 80061; 82607; 82746; 83036; 84439; 84443; 85025; 85652; 86140

== ENCOUNTER 2024-04-17 12:57 | Outpatient (AMB) | payer MEDICARE, SELFPAY ==
--- NOTE | 2024-04-17 13:01 | A.OFFPC_ITS ---
Vital Signs 04/17/24 13:02 Height 5 ft 6 in Weight 231 lb 2 oz BMI 37.3 BP 120/72 Blood Pressure Location Lt brachial Position Sitting Pulse 74 Pulse Source Pulse Oximeter Pulse Oximetry (%) 95 Oxygen Delivery Method Room Air Intake Visit Reasons: dysphagia Intake Note: Patient is here to follow up on Dysphagia. Material Preparation Worker Required: No Receiving Worker: Not Required per policy Accompanied by: Self / Same As Patient Allergies No Known Allergies Allergy (Verified 04/17/24 13:02) Medication List - Last Reconciled 04/17/24 by Adebayo Plunkett MD alprazolam 1-2 tabs 1 hour before the procedure orally PRN; may cause drowsiness aspirin (Adult Low Dose Aspirin) 81 mg PO DAILY atenolol 50 mg PO DAILY 90 days docosahexaenoic acid-epa 120-180 mg (Fish Oil) 1 cap PO DAILY multivitamin 1 tab PO DAILY naproxen sodium (Aleve) 220 mg PO DAILY PRN omeprazole 20 mg PO DAILY Tobacco use date assessed: 04/17/24 Fall risk assessment: No Falls in past year Last assessed Fall Risk: 04/17/24 Dental Screening Dental Screen Date: 09/19/23 HPI dysphagia HPI Details 78-year-old obese male with a history of achalasia GERD pulmonary nodules impaired glucose tolerance hypertension hypercholesterolemia last seen for physical exam in 12/26/2023. Patient had some x-rays that were a concern for ankylosing spondylolysis patient is here for follow-up. Last colon test was done in February 2014. Patient is scheduled for colonoscopy in 05/27/2024. Meanwhile was referred to Rheumatology and patient has significant osteoarthritis looking more like arthritis pro. cough prodcutive, mmostly on lying, no sore throat, no sob, , ? post nasal PFSH Medical History Cough Knee buckling Asthmatic bronchitis Impaired glucose tolerance Annual physical exam Hypercholesterolemia Thrombocytopenia Vitamin D deficiency Obesity (BMI 30-39.9) Hypertension Surgical History History of cholecystectomy History of inguinal hernia repair History of excision of pilonidal cyst Family History Father Cancer Liver cancer Mother No problems noted. Sister Breast cancer Son In good health Social History Housing: House Alcohol intake: current Alcohol intake frequency: does not drink Alcohol type: beer Comment: once a week 1 beer Patient Tobacco Use Status: Former Tobacco user Tobacco use type: Cigarette Years Smoked: 34 years old stopped e-Cigarette/Vaping Use: Never Used Second Hand Smoke Exposure: No service: No Current occupational status: retired Current occupation: rt hand Cognitive needs: No Hearing needs: No Vision needs: Yes Questionnaire Thrive Questionnaire Date Thrive assessed: 09/19/23 Are you currently unemployed and looking for a job?: No ALEIDA-7 AMB Questionnaire ALEIDA-7 Date ALEIDA - 7 assessed: 12/17/23 Source: Developed by Drs. Marcin Waters, Ekaterina Pantoja, Alfie Colorado and colleagues, with an educational sushil from [employer]. Physical exam (Primary Care) Vital Signs: Last Vital Signs Pulse 74 04/17/24 13:02 BP 120/72 04/17/24 13:02 Pulse Ox 95 04/17/24 13:02 Oxygen Delivery Method Room Air 04/17/24 13:02 BMI result Body Mass Index 37.3 Tobacco/Smoking Status: Tobacco use Status Tobacco use date assessed 04/17/24 04/17/24 13:07 Patient Tobacco Use Status Former Tobacco user 04/17/24 13:07 Tobacco use type Cigarette 04/17/24 13:07 e-Cigarette/Vaping Use Never Used 04/17/24 13:07 Thrive Assessment: Date of Thrive Assessment Date Thrive assessed 09/19/23 04/17/24 13:07 Const General: alert; No acute distress Eyes Conjunctivae: conjunctivae normal Resp Auscultation: clear to auscultation bilaterally Cardio Rate: regular rate Rhythm: regular rhythm GI Inspection: Yes normal to inspection Extrem General: Yes normal to inspection and No edema Office Procedures Flu Questionnaire Does the patient have a severe egg allergy?: No Does the patient have severe life threatening allergies?: No Does the patient have a fever or illness today?: No Has the patient ever had Guillain-Monroe Syndrome?: No Has the patient ever had any past reaction to a flu shot?: No Immunizations Fluarix Triv [id number] (PF) 45 mcg (15 mcg x 3)/0.5 mL IM syringe Performing Provider: Adebayo Plunkett MD Performing Location: [facility] Administered by: Claribel Jung RN on 04/17/24 13:11 2 Dose Route Admin Location Dispensed Lot Number Expiration Date NDC Associate Doctor 0.5 mL IM Left Deltoid 0.5 mL [id number] 01/04/25 19008-140-21 [employer] VIS Given Date VIS Provided VIS Publication Date 04/17/24 Single Vaccine 21 Eligibility Eligibility Date Funding Source Not [facility] Eligible 04/17/24 Private Coding Level of Care Code Est Pt Level 4 (83434) Diagnoses Achalasia K22.0 Ankylosing spondylitis of cervicothoracic region M45.3 Ankylosing spondylitis location: cervicothoracic region GERD (gastroesophageal reflux disease) K21.9 Pulmonary nodules R91.8 Hypercholesterolemia E78.00 Obesity (BMI 30-39.9) E66.9 Essential hypertension I10 Hypertension type: essential hypertension Chronic cough R05.3 Assessment & Plan Assessment & Plan (1) Achalasia: Comment: 11/2023Small anterior cervical web at the level C5. This is unlikely contributing to the patient's symptoms. 2. High-grade extrinsic compression upon the posterior wall of the upper esophagus secondary to a large syndesmophyte arising ventrally from T1-T2. Based on his recent CT scan in June 2023, this appears to be causing significant mass effect upon the esophagus at this level. Review this CT of the chest 06/21/2023 demonstrates bony findings pathognomonic of ankylosing spondylitis. 3. Esophageal dysmotility. 4. Mild to moderate narrowing of the GE junction above the hiatal hernia. This may represent achalasia, or a benign stricture. Recommend correlation with EGD. 5. Small type I hiatal hernia. 6. Multiple foci of contrast pooling in the fundus and body of the stomach that may represent small superficial aphthous ulcers. 7. 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 At C3, there is mild mass effect upon the hypopharynx, likely clinically insignificant. Code(s): K22.0 - Achalasia of cardia Category: Medical Plan: Patient has an upcoming procedure under Gastroenterology in May (2) Ankylosing spondylitis: Code(s): M45.9 - Ankylosing spondylitis of unspecified sites in spine Category: Medical Qualifiers: Ankylosing spondylitis location: cervicothoracic region Qualified Code(s): M45.3 - Ankylosing spondylitis of cervicothoracic region Plan: Patient has seen Rheumatology and concerns more on osteoarthritis. (3) GERD (gastroesophageal reflux disease): Code(s): K21.9 - Gastro-esophageal reflux disease without esophagitis Category: Medical Plan: Avoid the foods that causes that usually spicy foods, tomato products, juices, coffee, soda and foods that your sensitive to. After eating do not lie down, allow 3-4 hours before in lie down. And keep the head of bed above 30 degrees to avoid the acid from going up. (4) Pulmonary nodules: Comment: June 2024 CT scan Code(s): R91.8 - Other nonspecific abnormal finding of lung field Category: Medical Plan: Patient is being monitored with yearly CT scans. (5) Hypercholesterolemia: Code(s): E78.00 - Pure hypercholesterolemia, unspecified Category: Medical Plan: Avoid fried foods, chicken skin, eggs, butter margarine, pastries and meat. Be it pork or beef they have a lot of cholesterol LDL goal of less than 130 and triglyceride of less than 150 02/25/2024 last test (6) Obesity (BMI 30-39.9): Code(s): E66.9 - Obesity, unspecified Category: Medical Plan: Diet and exercise (7) Hypertension: Code(s): I10 - Essential (primary) hypertension Category: Medical Qualifiers: Hypertension type: essential hypertension Qualified Code(s): I10 - Essential (primary) hypertension Plan: Continue with blood pressure medication. Decrease salt intake and exercise on atenolol 50 mg once a day (8) Chronic cough: Code(s): R05.3 - Chronic cough Category: Medical Plan: And has seen Pulmonary and has work him up. PFTs negative, advised to trial of allergy medication and as for reflux medication sent in but will be having a workup under gastroenterology Orders: Orders Influenza [id number] Immunization Today Z23 - Encounter for immunization Medications: New omeprazole 20 mg PO DAILY 30 caps 2RF K21.9 - Gastro-esophageal reflux disease without esophagitis
[2024-04-17 13:02] VITALS: BP 120/72; PULSE 74; O2SAT 95; BMI 37.3
== END 2024-04-17 14:06 | disposition home or self-care (01) ==
PROVIDERS: PCP Internal Medicine; Visit Provider Internal Medicine
DX: K22.0 Achalasia of cardia (principal); M45.3 Ankylosing spondylitis of cervicothoracic region; K21.9 Gastro-esophageal reflux disease without esophagitis; R91.8 Other nonspecific abnormal finding of lung field; E66.812 Obesity, class 2; Z68.37 Body mass index [BMI] 37.0-37.9, adult; E78.00 Pure hypercholesterolemia, unspecified; I10 Essential (primary) hypertension; R05.3 Chronic cough

== ENCOUNTER → 2024-04-17 12:57 | Outpatient (BNVA) | payer MEDICARE, SELFPAY | PROVIDERS: PCP Internal Medicine; Visit Provider Internal Medicine | DX: Z23 Encounter for immunization (principal); K22.0 Achalasia of cardia; M45.3 Ankylosing spondylitis of cervicothoracic region; K21.9 Gastro-esophageal reflux disease without esophagitis; R91.8 Other nonspecific abnormal finding of lung field; E78.00 Pure hypercholesterolemia, unspecified; E66.9 Obesity, unspecified; I10 Essential (primary) hypertension; R05.3 Chronic cough | CPT/HCPCS: 90471; 90656; 99212 ==

== ENCOUNTER 2024-05-20 07:21 | Day surgery (SDC) | payer MEDICARE, SELFPAY ==
[2024-05-18 09:39] VITALS: BMI 38.1
--- NOTE | 2024-05-19 09:20 | HO.ANESPROP2 ---
Documented by User: Stephie Galan NP 05/19/24 09:22 HPI - Anesthesia Eval Consult details Narrative: 78yo M for Upper Endoscopy and Colonoscopy [facility] Active Problems Active Problems: All Active Problems Achalasia (Acute) Ankylosing spondylitis (Acute) Syndesmophyte (Acute) GERD (gastroesophageal reflux disease) (Acute) Dysphagia (Acute) Colon cancer screening (Acute) Pulmonary nodules (Acute) Chronic cough (Acute) Osteoarthritis of left knee (Acute) Multiple pigmented nevi (Acute) Tinea cruris (Acute) Carpal tunnel syndrome of left wrist (Acute) Carpal tunnel syndrome of right wrist (Acute) Mitral regurgitation (Acute) Carpal tunnel syndrome (Acute) Eczema (Acute) COVID-19 virus infection (Acute) Cough (Acute) Impaired glucose tolerance (Acute) Annual physical exam (Acute) Hypercholesterolemia (Acute) Vitamin D deficiency (Acute) Obesity (BMI 30-39.9) (Acute) Hypertension (Acute) Past Medical History Medical History Arthritis Knee buckling Asthmatic bronchitis Cough Impaired glucose tolerance Annual physical exam Hypercholesterolemia Thrombocytopenia Vitamin D deficiency Obesity (BMI 30-39.9) Hypertension Family History Family History Father Cancer Liver cancer Mother No problems noted. Sister Breast cancer Son In good health Surgical History Surgical History (Updated 05/20/24 @ 07:55 by Elayne Mix RN) H/O colonoscopy History of cholecystectomy History of inguinal hernia repair History of excision of pilonidal cyst Social History Social History Housing: House Alcohol intake: current Alcohol intake frequency: does not drink Alcohol type: beer Comment: once a week 1 beer Patient Tobacco Use Status: Former Tobacco user Tobacco use type: Cigarette Years Smoked: 34 years old stopped e-Cigarette/Vaping Use: Never Used Second Hand Smoke Exposure: No Use of substances other than those prescribed or required for medical reasons: No Are you DNR?: No Advance Directives: No Advance Directives Information Provided: Yes Recently lost weight without trying: No service: No Current occupational status: retired Current occupation: rt hand Cognitive needs: No Hearing needs: No Vision needs: Yes Meds Allergies Allergy/AdvReac Type Severity Reaction Status Date / Time No Known Allergies Allergy Verified 05/20/24 07:54 Home Medications ?Medication ?Instructions ?Recorded ?Confirmed ?Last Taken ?Type multivitamin 1 tab PO DAILY 12/06/20 05/18/24 Unknown History naproxen sodium 220 mg tablet 220 mg PO DAILY PRN Pain 12/17/23 05/18/24 05/13/24 History (Aleve) omega 9-enn-vid-fish oil 1,000 mg 1 cap PO DAILY 05/18/24 05/18/24 05/13/24 History (120 mg-180 mg) capsule (Fish Oil) aspirin 81 mg tablet 81 mg PO DAILY 05/20/24 05/20/24 05/13/24 History Exam Height,Weight and Vital Signs: Height 5 ft 6 in Weight 107.048 kg Pertinent Lab Results Pertinent Lab Results: Laboratory Tests 02/22/24 09:12 WBC 4.7 L Hgb 15.2 Hct 45.2 Plt Count 119 L Sodium 141 Potassium 4.3 Chloride 107 Carbon Dioxide 26 BUN 12 Creatinine 0.94 Assessment and Plan Assessment Anesthesia Assessment: Chart Reviewed Documented by User: Tammy Sánchez MD 05/20/24 08:22 [facility] Past Medical History Medical History Arthritis Knee buckling Asthmatic bronchitis Cough Impaired glucose tolerance Annual physical exam Hypercholesterolemia Thrombocytopenia Vitamin D deficiency Obesity (BMI 30-39.9) Hypertension Family History Family History Father Cancer Liver cancer Mother No problems noted. Sister Breast cancer Son In good health Family history of problems with anesthesia: No Surgical History Surgical History (Updated 05/20/24 @ 07:55 by Elayne Mix, RN) H/O colonoscopy History of cholecystectomy History of inguinal hernia repair History of excision of pilonidal cyst History of Problems with Anesthesia: No Social History Social History (Reviewed 10/11/24 @ 13:02 by JIN Pace Housing: House Alcohol intake: current Alcohol intake frequency: does not drink Alcohol type: beer Comment: once a week 1 beer Patient Tobacco Use Status: Former Tobacco user Tobacco use type: Cigarette Years Smoked: 34 years old stopped e-Cigarette/Vaping Use: Never Used Second Hand Smoke Exposure: No Use of substances other than those prescribed or required for medical reasons: No Are you DNR?: No Advance Directives: No Advance Directives Information Provided: Yes Recently lost weight without trying: No service: No Current occupational status: retired Current occupation: rt hand Cognitive needs: No Hearing needs: No Vision needs: Yes Meds Allergies Allergy/AdvReac Type Severity Reaction Status Date / Time No Known Allergies Allergy Verified 05/20/24 07:54 Home Medications ?Medication ?Instructions ?Recorded ?Confirmed ?Last Taken ?Type multivitamin 1 tab PO DAILY 12/06/20 05/18/24 Unknown History naproxen sodium 220 mg tablet 220 mg PO DAILY PRN Pain 12/17/23 05/18/24 05/13/24 History (Aleve) omega 5-btl-cgu-fish oil 1,000 mg 1 cap PO DAILY 05/18/24 05/18/24 05/13/24 History (120 mg-180 mg) capsule (Fish Oil) aspirin 81 mg tablet 81 mg PO DAILY 05/20/24 05/20/24 05/13/24 History Exam Airway Mallampati Class: II TM Dist: >3cm Neck ROM: Full Heart: rrr Assessment and Plan Assessment Anesthesia Assessment: Anesthesia Plan Discussed Final Anesthetic Review Family History of Problems with Anesthesia: No History of Problems with Anesthesia: No NPO: Yes ASA Class: II Final Preanesthetic Review: No Changes in Pt Med Stat, Meds/Allgs Chart Reviewed and Consent Obtained/Reviewed Patient Risk: Intermediate Procedure Risk: Intermediate Anesthetic Plan Anesthetic Plan: MAC: Disposition: Standard PACU
[2024-05-20 07:56] VITALS: BMI 36.5
[2024-05-20 08:10] VITALS: BP 138/91; PULSE 64; RESP 15; TEMP 36.3; O2SAT 96
[2024-05-20] MEDS: Lactated Ringers 1,000 ML 100 ML IVCONT (08:22)
[2024-05-20] MEDS: Albuterol Sulfate (0.083%) 2.5 MG/3 ML VIAL.NEB INHALE (08:35)
[2024-05-20 09:47] VITALS: BP 116/66; PULSE 72; RESP 16; TEMP 36.1; O2SAT 97
--- NOTE | 2024-05-20 09:50 | P.BOP_ITS ---
Brief Operative Note Date of Service: 05/20/24 Pre-op diagnosis: Abnormal Barium swallow, Screening Post-op diagnosis: other (Hiatal hernia, Colon polyp) Procedure: EGD with biopsies, Colonoscopy to the cecum with cold snare polypectomy Surgeon: Marcin Jones MD Anesthesia: MAC Was an Media/Instructional Designer used for this Procedure?: No Estimated blood loss (mL): 2.0 Pathology: other (A. EG Junction at 39cm B. Transverse colon polyp) Condition: stable Disposition: PACU
[2024-05-20 10:02] VITALS: BP 116/62; PULSE 68; RESP 16; TEMP 36.1; O2SAT 97
--- NOTE | 2024-05-20 10:08 | OP_ITS ---
DATE OF SERVICE: 05/20/2024 SURGEON: Marcin Jones MD INDICATIONS: The patient presents for evaluation of abnormal barium swallow, chronic cough, and colorectal cancer screening. Full consent was obtained from him for this, including risks of bleeding and perforation. PREOPERATIVE DIAGNOSIS: POSTOPERATIVE DIAGNOSIS: PROCEDURE PERFORMED: ESTIMATED BLOOD LOSS: COMPLICATIONS: ANESTHESIA: Monitored anesthesia care. ASSISTANTS: SPECIMENS: PREOPERATIVE DIAGNOSES: Abnormal barium swallow, chronic cough, colorectal cancer screening. POSTOPERATIVE DIAGNOSES: Abnormal barium swallow, chronic cough, colorectal cancer screening., small hiatal hernia, diverticulosis, colon polyp, internal hemorrhoids. PROCEDURES PERFORMED: 1. Esophagogastroduodenoscopy with biopsies. 2. Colonoscopy to the cecum with cold snare polypectomy. DESCRIPTION OF PROCEDURE: The patient was placed in left lateral decubitus position. The Olympus video gastroscope was passed in the posterior oropharynx and upper esophagus under direct vision. The scope was passed slowly into the distal esophagus. The gastroesophageal junction appeared at 39 cm. There was some minimal irregularity, but no evidence of any esophagitis nor Clarke's esophagus. The scope entered the stomach. There was a small hiatal hernia. The scope was advanced to pylorus and the duodenum was cannulated to the descending portion. The duodenum including the bulb appeared normal without mass or ulceration. The scope was withdrawn back in the stomach. The gastric antrum and body appeared normal with good peristalsis. The scope was retroflexed visualizing the proximal stomach carefully, which appeared normal, without any sign of mass or ulceration. The scope was straightened and withdrawn back to the esophagus. Biopsies were obtained from the EG junction at 39 cm. Proximal to this, the esophageal mucosa appeared normal. The scope was withdrawn from the patient. He was turned around for colonoscopy. The digital rectal exam revealed no abnormalities. The Olympus video pediatric colonoscope was entered into the rectum and advanced easily to the cecum. Once in the cecum, I did identify normal-appearing cecal pouch with appendiceal orifice and a normal-appearing ileocecal valve. The entire cecum and ileocecal valve appeared normal. Scope was slowly withdrawn assessing all mucosal surfaces carefully. Preparation was excellent. In the transverse colon was a flat, approximately 5 mm polyp, which was removed by cold snare polypectomy and recovered by suction. The polypectomy site appeared clean, without any sign of residual polyp nor significant bleeding. I did not visualize any other polyps, colitis, nor angiodysplasia. There was a mild amount of sigmoid diverticulosis. In the rectum, scope was retroflexed visualizing internal hemorrhoids, but no other pathology. The rectal mucosa appeared normal. The scope was straightened and withdrawn from the patient. He tolerated both procedures well and was returned to recovery area in stable condition. IMPRESSION: 1. Colon polyp. 2. Diverticulosis. 3. Internal hemorrhoids. 4. Small hiatal hernia. 5. Gastroesophageal reflux. PLAN: The results of the biopsies will be checked. Given his age and these minimal findings, I do not think he will need any further screening colonoscopies in the future. He will otherwise see me on a p.r.n. basis. He was advised not to use any aspirin or NSAIDs for 1 week. MD PAN Mason/CORTES / [phone] MTDD
== END 2024-05-20 10:27 | disposition home or self-care (01) ==
PROVIDERS: PCP Internal Medicine; Visit Provider Internal Medicine
PROC: (CPT 45385; principal; 2024-05-20 08:40)
DX: Z12.11 Encounter for screening for malignant neoplasm of colon (principal); K51.40 Inflammatory polyps of colon without complications; K57.30 Diverticulosis of large intestine without perforation or abscess without bleeding; K64.8 Other hemorrhoids; R93.3 Abnormal findings on diagnostic imaging of other parts of digestive tract; K21.9 Gastro-esophageal reflux disease without esophagitis; R05.3 Chronic cough; K44.9 Diaphragmatic hernia without obstruction or gangrene; I10 Essential (primary) hypertension; M19.042 Primary osteoarthritis, left hand; M19.041 Primary osteoarthritis, right hand; Z79.1 Long term (current) use of non-steroidal anti-inflammatories (NSAID); Z79.899 Other long term (current) drug therapy; Z87.891 Personal history of nicotine dependence
CPT/HCPCS: 45385; 43239; 88305; 88313; J1100; J1596; J2003; J2704

== ENCOUNTER 2024-05-29 07:19 | Outpatient (REF) | payer MEDICARE, SELFPAY | END 2024-05-29 07:20 | disposition home or self-care (01) | LOC: HO.CT 07:19 | PROVIDERS: PCP Internal Medicine; Visit Provider Internal Medicine Pulmonary Disease | DX: R91.8 Other nonspecific abnormal finding of lung field (principal) | CPT/HCPCS: 71250 ==

== ENCOUNTER → 2024-05-29 07:20 | Outpatient (BNV) | payer MEDICARE, SELFPAY | PROVIDERS: PCP Internal Medicine; Visit Provider Radiology Diagnostic Radiology | DX: R91.1 Solitary pulmonary nodule (principal); J98.09 Other diseases of bronchus, not elsewhere classified; I25.10 Atherosclerotic heart disease of native coronary artery without angina pectoris | CPT/HCPCS: 71250 ==

== ENCOUNTER 2024-08-14 12:55 | Outpatient (AMB) | payer MEDICARE, SELFPAY ==
--- NOTE | 2024-08-14 13:00 | A.OFFPC_ITS ---
Vital Signs 08/14/24 13:01 Height 5 ft 6 in Weight 232 lb 6 oz BMI 37.5 BP 140/78 H Blood Pressure Location Lt brachial Position Sitting Pulse 70 Pulse Source Pulse Oximeter Temp 97.3 F Temp Source Temporal Artery Scan Pulse Oximetry (%) 95 Oxygen Delivery Method Room Air Intake Visit Reasons: Chronic cough Incinerator Operator Required: No Accompanied by: Self / Same As Patient Allergies No Known Allergies Allergy (Verified 08/14/24 13:04) Tobacco use date assessed: 08/14/24 Fall risk assessment: No Falls in past year Last assessed Fall Risk: 08/14/24 Dental Screening Dental Screen Date: 08/14/24 Did you have a dental visit in the last 12 months?: Yes Did you have a dental problem in the last 6 months where you did not have access to dental care?: No Was dental information given to patient?: Patient has dentist HPI Chronic cough HPI Details The patient is a 78-year-old male presenting with a follow-up for multiple chronic health conditions, including hypercholesterolemia, hypertension, impaired glucose tolerance, and coronary artery disease. He was last seen in April of the previous year for achalasia and referred to gastroenterology. He underwent a colonoscopy in May, which revealed a benign inflammatory polyp, and an esophagogastroduodenoscopy (EGD) showed mild esophagitis near the esophagogastric junction with spongosis, neutrophils, and eosinophils. A computed tomography (CT) scan of the chest in July revealed a pulmonary nodule and endobronchial nodularity in the right main stem bronchus with granulomatous disease as a differential diagnosis. His cholesterol levels remain elevated, with an LDL of 402 from the last assessment in February. Despite a management plan that includes Atenolol and Aspirin for coronary artery disease, his blood work also indicates mild leukopenia and thrombocytopenia but otherwise normal electrolyte and renal function. The patient's blood pressure at the time of visit was 140 mmHg systol ic, which contradicts his home readings that have been around the desired range of 120/80 mmHg. The patient reports a longstanding cough, which he notes improves with the consumption of olive oil at night. The patient has managed his glucose levels with diet and exercise, noting his hemoglobin A1c was 5.7 as of his last test in February. He has a noted body mass index (BMI) of 37, and weight management through caloric deficit and physical activity has been recommended given the excessive adiposity. The patient adheres to precautions against respiratory infections, given the current epidemiological risk. [facility] Medical History (Updated 08/14/24 @ 13:24 by Adebayo Plunkett MD) Chronic cough Colon cancer screening Dysphagia Arthritis Knee buckling Asthmatic bronchitis Cough Impaired glucose tolerance Annual physical exam Hypercholesterolemia Thrombocytopenia Vitamin D deficiency Obesity (BMI 30-39.9) Hypertension Surgical History H/O colonoscopy History of cholecystectomy History of inguinal hernia repair History of excision of pilonidal cyst Family History Father Cancer Liver cancer Mother No problems noted. Sister Breast cancer Son In good health Social History Housing: House Alcohol intake: current Alcohol intake frequency: does not drink Alcohol type: beer Comment: once a week 1 beer Patient Tobacco Use Status: Former Tobacco user Tobacco use type: Cigarette Years Smoked: 34 years old stopped e-Cigarette/Vaping Use: Never Used Second Hand Smoke Exposure: No service: No Current occupational status: retired Current occupation: rt hand Cognitive needs: No Hearing needs: No Vision needs: Yes Questionnaire PHQ-9 Over the last 2 weeks, how often have you been bothered by any of the following problems? 1. Little interest or pleasure in doing things: not at all 2. Feeling down, depressed, or hopeless: not at all 3. Trouble falling or staying asleep, or sleeping too much: not at all 4. Feeling tired or having little energy: not at all 5. Poor appetite or overeating: not at all 6. Feeling bad about yourself - or that you are a failure or have let yourself or your family down: not at all 7. Trouble concentrating on things, such as reading the newspaper or watching te levision: not at all 8. Moving or speaking so slowly that other people could have noticed. Or the opposite - being so fidgety or restless that you have been moving around a lot more than usual: not at all 9. Thoughts that you would be better off or of hurting yourself in some way: not at all Total score: 0 Depression Screening Interpretation: Negative Depression Screening Done: Yes 61742 - PHQ-9 Billing: Yes Source: Developed by Drs. Marcin Waters, Ekaterina Pantoja, Alfie Colorado and colleagues, with an educational sushil from [employer]. Thrive Questionnaire Date Thrive assessed: 08/14/24 I am a: Patient What is your living situation today?: I have a steady place to live Within the past 12 months, did the food you bought not last and you didn't have the money to get more?: Never true Within the past 12 months, did you worry whether your food would run out before you got money to buy more?: Never true Do you have trouble paying for medicines?: No Do you have trouble getting transportation to medical appointments?: No Do you have trouble paying your heating and electricity bill?: No Do you have trouble taking care of your child, family member or friend?: No Do you have trouble with day-to-day activities such as bathing, preparing meals, shopping, managing finances, etc.?: No Are you currently unemployed and looking for a job?: No Are you interested in more education?: No Please select the resources that you would like help with: None Currently or been in a relationship where the following occur: No concerns reported THRIVE Score: 0 AUDIT C Alcohol Use Questionnaire (AUDIT-C) 1. How often do you have a drink containing alcohol?: 4 or more times a week 2. How many drinks containing alcohol do you have on a typical day when you are drinking?: 1 or 2 3. How often do you have six or more drinks on one occasion?: Never Total Score: 4 ALEIDA-7 AMB Questionnaire ALEIDA-7 Date ALEIDA - 7 assessed: 08/14/24 Feeling nervous, anxious, or on edge: 0 = Not at all Not being able to stop or control worryin = Not at all Worrying too much about different things: 0 = Not at all Trouble relaxin = Not at all Being so restless that it is hard to sit still: 0 = Not at all Becoming easily annoyed or irritable: 0 = Not at all Feeling afraid as if something awful might happen: 0 = Not at all Total ALEIDA-7 score (0-4 normal; 5-9 mild; 10-14 moderate; 15-21 severe): 0 Source: Developed by Ekaterina Mcgraw. Kit, Alfie Colorado and colleagues, with an educational sushil from [employer]. ALEIDA-7 Assessment Billing ALEIDA-7 Assessment Tool: ALEIDA-7 Assessment 69362 Physical exam (Primary Care) Vital Signs: Last Vital Signs Temp 97.3 F 08/14/24 13:01 Pulse 70 08/14/24 13:01 BP 140/78 H 08/14/24 13:01 Pulse Ox 95 08/14/24 13:01 Oxygen Delivery Method Room Air 08/14/24 13:01 BMI result Body Mass Index 37.5 Tobacco/Smoking Status: Tobacco use Status Tobacco use date assessed 08/14/24 08/14/24 13:05 Patient Tobacco Use Status Former Tobacco user 08/14/24 13:05 Tobacco use type Cigarette 08/14/24 13:05 e-Cigarette/Vaping Use Never Used 08/14/24 13:05 PHQ-9: PHQ-9 Score PHQ-9: Total score 0 08/14/24 13:05 Depression Screening Interpretation: Negative Thrive Assessment: Date of Thrive Assessment Date Thrive assessed 08/14/24 08/14/24 13:05 Currently or been in a relationship where the following occur: No concerns reported Const General: alert; No acute distress Eyes Conjunctivae: conjunctivae normal Resp Auscultation: clear to auscultation bilaterally Cardio Rate: regular rate Rhythm: regular rhythm GI Inspection: Yes normal to inspection Extrem General: Yes normal to inspection and No edema Coding Level of Care Code Est Pt Level 4 (20752) Complex EM visit Add On G2211 Diagnoses Essential hypertension I10 Hypertension type: essential hypertension Obesity (BMI 30-39.9) E66.9 Hypercholesterolemia E78.00 Impaired glucose tolerance R73.02 Coronary artery disease I25.10 GERD (gastroesophageal reflux disease) K21.9 Additional Codes ALEIDA-7 Assessment Billing - ALEIDA-7 Assessment Tool: ALEIDA-7 Assessment 89987 ([id number]) PHQ-9 - 75937 - PHQ-9 Billing: Yes ([id number]) Assessment & Plan Assessment & Plan (1) Hypertension: Code(s): I10 - Essential (primary) hypertension Category: Medical Qualifiers: Hypertension type: essential hypertension Qualified Code(s): I10 - Essential (primary) hypertension Plan: Continue with blood pressure medication. Decrease salt intake and exercise on atenolol 50 mg once a day (2) Obesity (BMI 30-39.9): Code(s): E66.9 - Obesity, unspecified Category: Medical Plan: Diet and exercise (3) Hypercholesterolemia: Code(s): E78.00 - Pure hypercholesterolemia, unspecified Category: Medical Plan: Avoid fried foods, chicken skin, eggs, butter margarine, pastries and meat. Be it pork or beef they have a lot of cholesterol LDL goal of less than 70 and triglyceride of less than 150. (4) Impaired glucose tolerance: Code(s): R73.02 - Impaired glucose tolerance (oral) Category: Medical Plan: Decrease the amount of carbohydrate intake, pasta, bread, rice and potatoes are all sugar and that is aside from all the sweet stuff, remember that fruits are good but they are Sweet also. (5) Coronary artery disease: Code(s): I25.10 - Atherosclerotic heart disease of [place] coronary artery without angina pectoris Category: Medical Plan: Control the cholesterol, weight, blood pressure, patient is on aspirin 81 mg once a day (6) GERD (gastroesophageal reflux disease): Code(s): K21.9 - Gastro-esophageal reflux disease without esophagitis Category: Medical Plan: Avoid the foods that causes that usually spicy foods, tomato products, juices, coffee, soda and foods that your sensitive to. After eating do not lie down, allow 3-4 hours before in lie down. And keep the head of bed above 30 degrees to avoid the acid from going up. Plan - Continue Atenolol 50 mg once daily for hypertension management. Encourage home blood pressure monitoring, aiming for readings below 120/80 mmHg. - Maintain Aspirin 81 mg daily for coronary artery disease prevention. - Target weight loss through dietary modifications and increased physical activity to address obesity, aiming for a body mass index within the normal range. - Initiate lipid-lowering therapy with a goal LDL of less than 70 mg/dL and triglycerides less than 150 mg/dL. Re-evaluate with updated cholesterol panel. - Monitor glucose levels actively, considering impending glucose intolerance, with regular hemoglobin A1c assessments. - Refer the patient to pulmonology for management of endobronchial nodularity; ensure follow-up on pulmonary and granulomatous disease findings. - Continue gastroenterology follow-up for GERD management, with ongoing proton pump inhibitor therapy if applicable. - Educate on infection prevention in light of increased flu and RSV activity, emphasizing mask use and hand hygiene in crowded places. - Schedule fasted blood work for comprehensive assessment of cholesterol and glycemic control. Orders: Orders Comprehensive Met. Panel Today R73.02 - Impaired glucose tolerance (oral) Complete Blood Count Auto Diff Today R73.02 - Impaired glucose tolerance (oral) Lipid Panel Today E78.00 - Pure hypercholesterolemia, unspecified Hemoglobin A1c Today R73.02 - Impaired glucose tolerance (oral) Thyroid Stimulating Hormone Today E78.00 - Pure hypercholesterolemia, unspecified
[2024-08-14 13:01] VITALS: BP 140/78; PULSE 70; TEMP 36.3; O2SAT 95; BMI 37.5
--- OUTSIDE RECORDS SUMMARY | 2024-08-14 13:33 | XMS_ITS ---
Author Organization [facility] Address [address] [place] [address] Care Team Providers Care Logistics Tech Name Role Phone Po Adebayo POLANCO Primary Care Provider Marcin Leon [phone] REASON FOR VISIT screening, abn barium swallow,chronic cough PROBLEMS Problem Type ICD Code Onset Dates Problem Status W/U Status Risk SNOMED Code Notes Problem Diverticulosis of large intestine without perforation or abscess without bleeding (K57.30) Active confirmed Diverticul ar disease of colon (575854695) Problem Gastroesophageal reflux disease (K21.9) Active confirmed Gastroesophagea l reflux disease (023925188) Encounters Encounter Location Date Provider Diagnosis [facility] [place] [address] [place], [place] [phone] 05/20/2024 Marcin Jones Colon cancer screeni ng Z12.11 ; Colon polyps K63.5 ; Diverticulosis of large intestine without perforation or abscess without bleeding K57.30 ; Other hemorrhoids K64.8 ; Gastroesophageal reflux disease K21.9 ; Hiatal hernia K44.9 ; Abn findings-GI tract R93.3 and Chronic cough R05.3 ASSESSMENTS Encounter Date Diagnosis Assessment Notes Treatment Notes Treatment Clinical Notes 05/20/2024 Colon cancer screeni ng (ICD-10 - Z12.11) 05/20/2024 Colon polyps (ICD-10 - K63.5) 05/20/2024 Diverticulosis of la rge intestine without perforation or abscess without bleeding (ICD-10 - K57.30) 05/20/2024 Other hemorrhoids (ICD-10 - K64.8) 05/20/2024 Gastroesophageal ref lux disease (ICD-10 - K21.9) 05/20/2024 Hiatal hernia (ICD-1 0 - K44.9) 05/20/2024 Abn findings-GI trac t (ICD-10 - R93.3) 05/20/2024 Chronic cough (ICD-1 0 - R05.3) PLAN OF TREATMENT No Information
--- OUTSIDE RECORDS SUMMARY | 2024-08-14 13:33 | XMS_ITS ---
Author Organization [facility] Address [address] [place] [address] Care Team Providers Care Pie Crust Mixer Name Role Phone Adebayo Plunkett MD Primary Care Provider Marcin Leon [phone] ALLERGIES No Known Allergies REASON FOR VISIT patient presents today for colon screening/chronic cough MEDICATIONS Medication SIG (Take, Route, Fr equency, Duration) Notes Start Date End Date Status Multivitamin - 1 tablet Orally Once a day for 30 day(s) Active Atenolol 50 MG TAKE 1 TABLET BY PATT TH EVERY DAY Oral for 90 Active Fish Oil Active Aleve 220 MG 1 tablet with food o r milk as needed Orally every 12 hrs Active SOCIAL HISTORY Tobacco Use: Social History Observation Description Date Details (start date - stop date) Former Smoker NA - NA Sex Assigned At : Social History Observation Description Sex Assigned At Unknown Tobacco Use/Smoking Question Answer Notes Patient is a former smoker How long has it been since you last smoked? > 10 years Alcohol Screen Question Answer Notes Did you have a drink contain ing alcohol in the past year? Yes How often did you have a dri nk containing alcohol in the past year? Monthly or less (1 point) How many drinks did you have on a typical day when you were drinking in the past year? 1 or 2 drinks (0 point) How often did you have 6 or more drinks on one occasion in the past year? Never (0 point) Points 1 Interpretation Negative PROBLEMS Problem Type ICD Code Onset Dates Problem Status W/U Status Risk SNOMED Code Notes Problem Abnormal barium swallow (R93.3) Active confirmed Barium swallow abnormal (279417639) Problem Colon cancer screening (Z12.11) Active confirmed Colon cancer screening (770975082) Problem Chronic cough (R05.3) Active confirmed Chronic cough (13512356) Problem Abnormal CT of liver (R93.2) Active confirmed Abnormal findings diagnostic imaging of liver and biliary tract (175742427) VITAL SIGNS BMI 38.09 kg/m2 01/28/2024 Blood pressure systolic 00 mm Hg 01/28/20 24 Blood pressure diastolic 00 mm Hg 024 Height 5 ft 6 in in 01/28/2024 Weight 236 lbs 01/28/2024 Encounters Encounter Location Date Provider Diagnosis [facility] [address] [place] [address] 01/28/2024 Marcin Jones Abnormal barium swallow R93.3 ; Colon cancer screening Z12.11 ; Chronic cough R05.[address] of liver R93.2 ASSESSMENTS Encounter Date Diagnosis Assessment Notes Treatment Notes Treatment Clinical Notes 01/28/2024 Abnormal barium swallow (ICD-10 - R93.3) Stop Aleve and Fish oil for 1 week ebfore the procedures 01/28/2024 Colon cancer screening (ICD-10 - Z12.11) 01/28/2024 Chronic cough (ICD-10 - R05.3) Speak with Dr. Plunkett about referral to ENT or back to Pulmonary for your cough 01/28/[address] of liver (ICD-10 - R93.2) PLAN OF TREATMENT Treatment Notes Assessment Notes Abnormal barium swallow Stop Aleve and F trudy oil for 1 week ebfore the procedures Chronic cough Speak with Dr. Plunkett ab out referral to ENT or back to Pulmonary for your cough Pending Test Test Name Order Date BUN 01/28/2024 MRI ABD W&WO CONTRAST 01/28/2024 Creatinine 01/28/2024 Future Test Test Name Order Date UPPER GI ENDOSCOPY 01/28/2024 COLONOSCOPY 01/28/2024 Next Appt Details Follow Up: prn, Reason: Progress Notes * Examination Category Sub-Category Detail Notes General Examination GENERAL APPEARANCE: pleasant , well nourished, well developed, in no acute distress HEAD: EYES: sclera non-icteric EARS: NOSE: THROAT: NECK/THYROID: no cervical lymphade nopathy, neck supple HEART: S1, S2 normal CHEST: LUNGS: clear to auscultatio n bilaterally ABDOMEN: normal bowel sounds, no guarding or rigidity, no guarding or rigidity, no masses palpable, soft, nontender, nondistended NEUROLOGIC: alert and oriented SKIN: nonjaundiced, no spi vivian angiomata EXTREMITIES: no edema PERIPHERAL PULSES: BACK: BREASTS: MUSCULOSKELETAL: MALE GENITOURINARY: LYMPH NODES: RECTAL EXAM: FEMALE GENITOURINARY: ORAL CAVITY: mucosa moist
--- OUTSIDE RECORDS SUMMARY | 2024-08-14 13:33 | XMS_ITS ---
Author Organization [facility] Address [address] [place] [address] Care Team Providers Care Conventional Mortgage Underwriter Name Role Phone Adebayo Plunkett MD Primary Care Provider Marcin Leon [phone] REASON FOR VISIT Needs MRI of the Encounters Encounter Location Date Provider Diagnosis [facility] [address] [place] [address] 02/14/2024 Marcin Jones PLAN OF TREATMENT No Information
--- OUTSIDE RECORDS SUMMARY | 2024-08-14 13:33 | XMS_ITS | Patient Health Record ---
Author Organization [facility] Address [address] [place] [address] Care Team Providers Care Cutter V Groove Name Role Phone Adebayo Plunkett MD Primary Care Provider Marcin Leon [phone] ALLERGIES No Known Allergies RESULTS Component Value Reference Range Notes Complete Blood Count Auto Di ff Reviewed date:02/22/2024 01:21:11 PM Interpretation: Performing Lab:[facility], [address] [place] [phone] Notes/Report: White Blood Count 4.7 4.8-10.8 X10*3/uL Red Blood Count 4.72 4.60-5.80 X10*6/uL Hemoglobin 15.2 14.0-18.0 g/dl Hematocrit 45.2 42.0-52.0 % Mean Corpuscular Volume 95.8 80.0-98.0 fL Mean Corpuscular Hemoglobin 32.2 27.0-33.0 pg Mean Corpuscular HGB Conc 33.6 31.0-36.0 g/dl Red Cell Distribution Width 13.4 11.0-16.0 % Platelet Count 119 160-400 X10*3/uL Mean Platelet Volume 10.0 9.4-12.4 fL Neutrophils Percent Auto 48.5 45-73 % Imm Gran Pct Auto 0.4 0.0-0.4 % Lymphocytes Percent Auto 39.3 20-40 % Monocytes Percent Auto 8.9 2-11 % Eosinophils Percent Auto 2.3 0-4 % Basophils Percent Auto 0.6 0-2 % NRBC Pct Auto 0.0 0.0-0.2 /100WBC Neutrophils Absolute Auto 2.3 2.0-8.3 x10*3/u L Imm Gran Abs Auto 0.02 0.00-0.03 X10*3/uL Lymphocytes Absolute Auto 1.9 1.2-4.9 X10*3/u L Monocytes Absolute Auto 0.4 0.1-1.2 X10*3/uL Eosinophils Absolute Auto 0.1 0.0-0.4 X10*3/u L Basophils Absolute Auto 0.0 0.0-0.2 X10*3/uL NRBC Abs Auto 0.000 0.0-0.012 X10*3/uL Erythrocyte Sedimentation Ra te Reviewed date:02/22/2024 01:22:16 PM Interpretation: Performing Lab:[facility], [address] [place] [phone] Notes/Report: Erythrocyte Sedimentation Rate 3 0-15 MM/HR Patients with polycythemia and many hemoglobin abnormalities may have depressed sed rates whereas patients with anemia may have elevated sed rates. Comprehensive Met. Panel Reviewed date:02/22/2024 01:22:44 PM Interpretation: Performing Lab:[facility], [address] [place] [phone] Notes/Report: Sodium 141 135-145 mmol/L Potassium 4.3 3.3-5.1 mmol/L Chloride 107 96-108 mmol/L Carbon Dioxide 26 22-29 mmol/L Anion Gap 12 12-20 Blood Urea Nitrogen 12 9-16 mg/dL Creatinine 0.94 0.5-1.4 mg/dL Estimated Glomerular Filt Rate > 60 NOTE: For -[place]aur[place] individuals, multiply the result by 1.210. Chronic Kidney Disease: Estimated GFR < 60 mL/min/1.73m2 Severe Kidney Disease: Estimated GFR < 15 mL/min/1.73m2 Glucose Random 108 60-115 mg/dL Calcium 9.3 8.4-10.2 mg/dL Bilirubin Total 0.8 0.0-1.0 mg/dL Aspartate Amino Transferase 26 5-37 U/L Alanine Aminotransferase 34 0-40 U/L Total Protein 6.7 6.5-8.0 g/dL Albumin Level 4.0 3.5-5.0 g/dL Alkaline Phosphatase 64 39-117 U/L C Reactive Protein Reviewed date:02/22/2024 01:22:52 PM Interpretation: Performing Lab:[facility], [address] [place] [phone] Notes/Report: C Reactive Protein 0.19 < or = 0.50 mg/dL Lipid Panel Reviewed date:02/22/2024 01:23:00 PM Interpretation: Performing Lab:[facility], [address] [place] [phone] Notes/Report: Triglycerides 163 <150 mg/dL Desirable Triglyceride: less than 150 mg/dL Borderline High Triglyceride 150-199 mg/dL High Triglyceride: 200-499 mg/dL Very High Triglyceride: greater than or equal to 5OO mg/dL Cholesterol 170 <200 mg/dL Desirable Cholesterol: less than 200 mg/dL Borderline High Cholesterol: 200-239 mg/dL High Cholesterol: greater than 239 mg/dL LDL Cholesterol Calculated 102 <100 mg/dL Desirable LDL: less than 100 mg/dL Near Optimal/Above Optimal LDL: 110-129 mg/dL Borderline High LDL: 130-159 mg/dL High LDL: 160-189 mg/dL Very High LDL: greater than or equal to 190 mg/dL HDL Cholesterol 36 >40 mg/dL Desirable HDL: greater than 40 mg/dL Note: This HDL assay may give artificially low results in patients with liver disease. Vitamin B12 and Folate Reviewed date:02/22/2024 01:43:39 PM Interpretation: Performing Lab:[facility], [address] [place] [phone] Notes/Report: Vitamin B12 521 200-900 pg/mL NORMAL 200-900 PG/ML INDETERMINATE 160-199 PG/ML DEFICIENT < 160 PG/ML Folate 12.9 > or = 4.0 ng/mL Reference Values: > or = 4.0 ng/mL < 4.0 ng/mL suggests folate deficiency Methotrexate, aminopterin and folinic acid (leucovorin) are chemotherapeutic agents whose molecular structures are similar to folate; therefore, the Stopping Builder folate assay cannot be used for patients using these drugs. Free T4 (Free Thyroxine) Reviewed date:02/22/2024 01:23:08 PM Interpretation: Performing Lab:[facility], [address] [place] [phone] Notes/Report: Free T4 (Free Thyroxine) 1.03 0.71-1.85 ng/dL Thyroid Stimulating Hormone Reviewed date:02/22/2024 01:23:28 PM Interpretation: Performing Lab:[facility], [address] [place] [phone] Notes/Report: Thyroid Stimulating Hormone 0.88 0.32-4.0 uIU/ mL TSH 3rd Generation ([facility]) Hemoglobin A1c Reviewed date:02/22/2024 01:22:07 PM Interpretation: Performing Lab:[facility], [address] [place] [phone] Notes/Report: Hemoglobin A1c % 5.7 <6.0 % Hemoglobin A1C Reference Range Adults: 4.8 - 6.0 % Non diabetic: < 6.0 % Goal: < 7.0 % Additional Action Suggested: > 8.0 % Note: Hemoglobin A1c results are invalid for patients with abnormal amounts of HbF. Blood transfusions may impact the HbA1c concentration in the patient sample. Estimated Average Glucose 117 eAG = Estimated average glucose which is %A1C expressed as average glucose, using the formula of the [id number] Average Glucose study (ADAG), Diabetes Care, Vol.31,#8, Feb. 2007 Pathology (Not yet reviewed by provider) Interpretation: Performing Lab:[facility], [address] [place] [phone] Notes/Report: REASON FOR REFERRAL No Information MEDICATIONS Medication SIG (Take, Route, Fr equency, [...] Abnormal barium swallow (R93.3) Active confirmed Barium swall ow abnormal (974157318) Problem Colon cancer screening (Z12.11) Active confirmed Colon can cer screening (240968823) Problem Chronic cough (R05.3) Active confirmed Chronic cough (09658027) Problem Abnormal CT of liver (R93.2) Active confirmed Abnormal findi ngs diagnostic imaging of liver and biliary tract (321598471) Problem Diverticulosis of large intestine without perforation or abscess without bleeding (K57.30) Active confirmed Diverticul ar disease of colon (650587886) Problem Gastroesophageal reflux disease (K21.9) Active confirmed Gastroesophagea l reflux disease (455283786) VITAL SIGNS Blood pressure diastolic 00 mm Hg 01/28/2024 Height 5 ft 6 in in 01/28/2024 Blood pressure systolic 00 mm Hg 01/28/2024 Weight 236 lbs 01/28/2024 BMI 38.09 kg/m2 01/28/2024 Encounters Encounter Location Date Provider Diagnosis [facility] [place] [address] [place] [phone] 05/20/2024 Marcin Jones Colon cancer screeni ng Z12.11 ; Colon polyps K63.5 ; Diverticulosis of large intestine without perforation or abscess without bleeding K57.30 ; Other hemorrhoids K64.8 ; Gastroesophageal reflux disease K21.9 ; Hiatal hernia K44.9 ; Abn findings-GI tract R93.3 and Chronic cough R05.3 [facility] [address] [place] [address] 01/28/2024 Marcin Jones Abnormal barium swal low R93.3 ; Colon cancer screening Z12.11 ; Chronic cough R05.[address] of liver R93.2 [facility] [address] [place] [address] 02/14/2024 Marcin Jones ASSESSMENTS Encounter Date Diagnosis Assessment Notes Treatment Notes Treatment Clinical Notes 05/20/2024 Colon cancer screeni ng (ICD-10 - Z12.11) 05/20/2024 Colon polyps (ICD-10 - K63.5) 01/28/2024 Colon cancer screeni ng (ICD-10 - Z12.11) 01/28/2024 Abnormal barium swal low (ICD-10 - R93.3) Stop Aleve and Fish oil for 1 week ebfore the procedures 05/20/2024 Diverticulosis of la rge intestine without perforation or abscess without bleeding (ICD-10 - K57.30) 01/28/2024 Chronic cough (ICD-1 0 - R05.3) Speak with Dr. Plunkett about referral to ENT or back to Pulmonary for your cough 05/20/2024 Other hemorrhoids (ICD-10 - K64.8) 01/28/[address] of liver (ICD-10 - R93.2) 05/20/2024 Gastroesophageal ref lux disease (ICD-10 - K21.9) 05/20/2024 Hiatal hernia (ICD-1 0 - K44.9) 05/20/2024 Abn findings-GI trac t (ICD-10 - R93.3) 05/20/2024 Chronic cough (ICD-1 0 - R05.3) PLAN OF TREATMENT Pending Test Test Name Order Date BUN 01/28/2024 MRI ABD W&WO CONTRAST 01/28/2024 Creatinine 01/28/2024 Pathology 05/20/2024 Future Test Test Name Order Date UPPER GI ENDOSCOPY 01/28/2024 COLONOSCOPY 01/28/2024 Insurance Providers Payer Name Payer Address Payer Phone Subscriber Number Group Number Insured Name Patient Relationship to Insured Coverage Start Date Coverage End Date [facility] [address] [place] [address] [id number] SWAPNA BOYD Self - patient is the insured MEDICAL (GENERAL) HISTORY Medical History History ICD Code Hypertension Denies [place],DM,CVA,Lung disease,renal dise ase 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
== END 2024-08-14 13:39 | disposition home or self-care (01) ==
PROVIDERS: PCP Internal Medicine; Visit Provider Internal Medicine
DX: I10 Essential (primary) hypertension (principal); E66.9 Obesity, unspecified; Z68.37 Body mass index [BMI] 37.0-37.9, adult; E78.00 Pure hypercholesterolemia, unspecified; R73.02 Impaired glucose tolerance (oral); I25.10 Atherosclerotic heart disease of native coronary artery without angina pectoris; K21.9 Gastro-esophageal reflux disease without esophagitis

== ENCOUNTER → 2024-08-14 12:55 | Outpatient (BNVA) | payer MEDICARE, SELFPAY | PROVIDERS: PCP Internal Medicine; Visit Provider Internal Medicine | DX: I10 Essential (primary) hypertension (principal); E78.00 Pure hypercholesterolemia, unspecified; E66.9 Obesity, unspecified; R73.02 Impaired glucose tolerance (oral); I25.10 Atherosclerotic heart disease of native coronary artery without angina pectoris; K21.9 Gastro-esophageal reflux disease without esophagitis | CPT/HCPCS: 96127; 99212 ==

== ENCOUNTER 2024-08-26 12:51 | Outpatient (REF) | payer MEDICARE, SELFPAY ==
[2024-08-26 13:31] LABS: MANUAL DIFF FLAG NO
[2024-08-26 13:53] LABS: Basophils Absolute Auto 0.1 X10*3/uL (0.0-0.2); Basophils Percent Auto 0.9 % (0-2); Eosinophils Absolute Auto 0.2 X10*3/uL (0.0-0.4); Eosinophils Percent Auto 3.4 % (0-4); Hematocrit 45.4 % (42.0-52.0); Hemoglobin 15.5 g/dl (14.0-18.0); Imm Gran Abs Auto 0.04 X10*3/uL (0.00-0.03); Imm Gran Pct Auto 0.7 % (0.0-0.4); Lymphocytes Absolute Auto 1.6 X10*3/uL (1.2-4.9); Lymphocytes Percent Auto 29.4 % (20-40); Mean Corpuscular HGB Conc 34.1 g/dl (31.0-36.0); Mean Corpuscular Volume 96.8 fL (80.0-98.0); Mean Platelet Volume 9.7 fL (9.4-12.4); Monocytes Absolute Auto 0.5 X10*3/uL (0.1-1.2); Monocytes Percent Auto 8.3 % (2-11); Neutrophils Absolute Auto 3.2 x10*3/uL (2.0-8.3); Neutrophils Percent Auto 57.3 % (45-73); Platelet Count 139 X10*3/uL (160-400); Red Blood Count 4.69 X10*6/uL (4.60-5.80); Red Cell Distribution Width 13.8 % (11.0-16.0); White Blood Count 5.5 X10*3/uL (4.8-10.8)
[2024-08-26 13:57] LABS: Estimated Average Glucose 117 mg/dL; Hemoglobin A1c % 5.7 % (<6.0); Total Hemoglobin (HGBA1C) 4020.6373 umol/L
[2024-08-26 14:26] LABS: Alanine Aminotransferase 37 U/L (0-40); Albumin Level 4.2 g/dL (3.5-5.0); Alkaline Phosphatase 74 U/L (39-117); Anion Gap 11 (12-20); Aspartate Amino Transferase 29 U/L (5-37); Bilirubin Total 0.7 mg/dL (0.0-1.0); Blood Urea Nitrogen 13 mg/dL (9-16); Calcium 9.4 mg/dL (8.4-10.2); Carbon Dioxide 29 mmol/L (22-29); Chloride 106 mmol/L (96-108); Cholesterol 175 mg/dL (<200); Estimated Glomerular Filt Rate > 60; Glucose Random 108 mg/dL (60-115); HDL Cholesterol 39 mg/dL (>40); LDL Cholesterol Calculated 96 mg/dL (<100); Potassium 5.2 mmol/L (3.3-5.1); Sodium 141 mmol/L (135-145); Total Protein 7.3 g/dL (6.5-8.0); Triglycerides 202 mg/dL (<150)
[2024-08-26 14:42] LABS: Thyroid Stimulating Hormone 0.68 uIU/mL (0.32-4.0)
== END 2024-08-26 12:52 | disposition home or self-care (01) ==
LOC: HO.LAB 12:51
PROVIDERS: PCP Internal Medicine; Visit Provider Internal Medicine Pulmonary Disease
DX: R05.9 Cough, unspecified (principal); E78.00 Pure hypercholesterolemia, unspecified; R73.02 Impaired glucose tolerance (oral); R91.8 Other nonspecific abnormal finding of lung field
CPT/HCPCS: 36415; 80053; 80061; 83036; 84443; 85025; 99212

== ENCOUNTER 2024-08-26 12:51 | Outpatient (AMB) | payer MEDICARE, SELFPAY ==
--- OUTSIDE RECORDS SUMMARY | 2024-08-26 13:02 | XMS_ITS ---
Author Organization [facility] Address [address] [place] [address] Care Team Providers Care Job Captain Name Role Phone Adebayo Plunkett MD Primary Care Provider Marcin Leon [phone] ALLERGIES No Known Allergies REASON FOR VISIT [...] swallow (R93.3) Active confirmed Barium swallow abnormal (205786160) Problem Colon cancer screening (Z12.11) Active confirmed Colon cancer screening (203818268) Problem Chronic cough (R05.3) Active confirmed Chronic cough (13056473) Problem Abnormal CT of liver (R93.2) Active confirmed Abnormal findings diagnostic imaging of liver and biliary tract (721456128) VITAL SIGNS BMI 38.09 kg/m2 01/28/2024 Blood pressure systolic 00 mm Hg 01/28/20 24 Blood pressure diastolic 00 mm Hg 024 Height 5 ft 6 in in 01/28/2024 Weight 236 lbs 01/28/2024 Encounters Encounter Location Date Provider Diagnosis [facility] [address] [place] [address] 01/28/2024 Marcin Jones Abnormal barium swallow R93.3 [...]
--- OUTSIDE RECORDS SUMMARY | 2024-08-26 13:02 | XMS_ITS | Patient Health Record ---
Author Organization [facility] Address [address] [place] [address] Care Team Providers Care Indexer Name Role Phone Adebayo Plunkett MD Primary Care Provider Marcin Leon [phone] ALLERGIES No Known Allergies RESULTS Component Value Reference Range Notes Complete Blood Count Auto Di ff Reviewed date:02/22/2024 01:21:11 PM Interpretation: Performing Lab:[facility], [address] [place] [phone] Notes/Report: White Blood Count 4.7 4.8-10.8 X10*3/uL [...] te Reviewed date:02/22/2024 01:22:16 PM Interpretation: Performing Lab:[facility], [address] [place] [phone] Notes/Report: Erythrocyte Sedimentation Rate 3 0-15 MM/HR Patients with polycythemia and many hemoglobin abnormalities may have depressed sed rates whereas patients with anemia may have elevated sed rates. Comprehensive Met. Panel Reviewed date:02/22/2024 01:22:44 PM Interpretation: Performing Lab:[facility], [address] [place] [phone] Notes/Report: Sodium 141 135-145 mmol/L Potassium 4.3 3.3-5.1 mmol/L Chloride 107 96-108 mmol/L Carbon Dioxide 26 22-29 mmol/L Anion Gap 12 12-20 Blood Urea Nitrogen 12 9-16 mg/dL Creatinine 0.94 0.5-1.4 mg/dL Estimated Glomerular Filt Rate > 60 NOTE: For -[place]jibout[place] individuals, multiply the result by 1.210. Chronic [...] Protein Reviewed date:02/22/2024 01:22:52 PM Interpretation: Performing Lab:[facility], [address] [place] [phone] Notes/Report: C Reactive Protein 0.19 < or = 0.50 mg/dL Lipid Panel Reviewed date:02/22/2024 01:23:00 PM Interpretation: Performing Lab:[facility], [address] [place] [phone] Notes/Report: Triglycerides 163 <150 mg/dL Desirable Triglyceride: [...] Folate Reviewed date:02/22/2024 01:43:39 PM Interpretation: Performing Lab:[facility], [address] [place] [phone] Notes/Report: Vitamin B12 521 200-900 pg/mL NORMAL 200-900 PG/ML INDETERMINATE 160-199 PG/ML DEFICIENT < 160 PG/ML Folate 12.9 > or = 4.0 ng/mL Reference Values: > or = 4.0 ng/mL < 4.0 ng/mL suggests folate deficiency Methotrexate, aminopterin and folinic acid (leucovorin) are chemotherapeutic agents whose molecular structures are similar to folate; therefore, the Ultrasound Tech folate assay cannot be used for patients using these drugs. Free T4 (Free Thyroxine) Reviewed date:02/22/2024 01:23:08 PM Interpretation: Performing Lab:[facility], [address] [place] [phone] Notes/Report: Free T4 (Free Thyroxine) 1.03 0.71-1.85 ng/dL Thyroid Stimulating Hormone Reviewed date:02/22/2024 01:23:28 PM Interpretation: Performing Lab:[facility], [address] [place] [phone] Notes/Report: Thyroid Stimulating Hormone 0.88 0.32-4.0 uIU/ mL TSH 3rd Generation ([facility]) Hemoglobin A1c Reviewed date:02/22/2024 01:22:07 PM Interpretation: Performing Lab:[facility], [address] [place] [phone] Notes/Report: Hemoglobin A1c % 5.7 <6.0 % [...] average glucose, using the formula of the [id number] Average Glucose study (ADAG), Diabetes Care, Vol.31,#8, Feb. 2007 Pathology (Not yet reviewed by provider) Interpretation: Performing Lab:[facility], [address] [place] [phone] Notes/Report: REASON FOR REFERRAL No Information MEDICATIONS [...] (R93.3) Active confirmed Barium swall ow abnormal (535025126) Problem Colon cancer screening (Z12.11) Active confirmed Colon can cer screening (303840804) Problem Chronic cough (R05.3) Active confirmed Chronic cough (63331267) Problem Abnormal CT of liver (R93.2) Active confirmed Abnormal findi ngs diagnostic imaging of liver and biliary tract (585699812) Problem Diverticulosis of large intestine without perforation or abscess without bleeding (K57.30) Active confirmed Diverticul ar disease of colon (454849437) Problem Gastroesophageal reflux disease (K21.9) Active confirmed Gastroesophagea l reflux disease (960045951) VITAL SIGNS Blood pressure diastolic 00 mm Hg 01/28/2024 Height 5 ft 6 in in 01/28/2024 Blood pressure systolic 00 mm Hg 01/28/2024 Weight 236 lbs 01/28/2024 BMI 38.09 kg/m2 01/28/2024 Encounters Encounter Location Date Provider Diagnosis [facility] [place] [address] [place] [phone] 05/20/2024 Marcin Jones Colon cancer screeni ng Z12.11 ; Colon polyps K63.5 ; Diverticulosis of large intestine without perforation or abscess without bleeding K57.30 ; Other hemorrhoids K64.8 ; Gastroesophageal reflux disease K21.9 ; Hiatal hernia K44.9 ; Abn findings-GI tract R93.3 and Chronic cough R05.3 [facility] [address] [place] [address] 01/28/2024 Marcin Jones Abnormal barium swal low R93.3 ; Colon cancer screening Z12.11 ; Chronic cough R05.[address] of liver R93.2 [facility] [address] [place] [address] 02/14/2024 Marcin Jones ASSESSMENTS Encounter Date Diagnosis [...] Insured Coverage Start Date Coverage End Date [facility] [address] [place] [address] [id number] SWAPNA BOYD Self - patient is the insured MEDICAL (GENERAL) HISTORY Medical History History ICD Code Hypertension Denies [place],DM,CVA,Lung disease,renal dise ase 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
--- OUTSIDE RECORDS SUMMARY | 2024-08-26 13:02 | XMS_ITS ---
Author Organization [facility] Address [address] [place] [address] Care Team Providers Care House Carpenter Name Role Phone Adebayo Plunkett MD Primary Care Provider Marcin Leon [phone] REASON FOR VISIT Needs MRI of the Encounters Encounter Location Date Provider Diagnosis [facility] [address] [place] [phone] 02/14/2024 Marcin Jones PLAN OF TREATMENT No Information
--- OUTSIDE RECORDS SUMMARY | 2024-08-26 13:02 | XMS_ITS ---
Author Organization [facility] Address [address] [place] [address] Care Team Providers Care Footwear Sales Leader Name Role Phone Po Adebayo POLANCO Primary Care Provider Marcin Leon [phone] REASON FOR VISIT screening, abn barium swallow,chronic cough PROBLEMS Problem Type ICD Code Onset Dates Problem Status W/U Status Risk SNOMED Code Notes Problem Diverticulosis of large intestine without perforation or abscess without bleeding (K57.30) Active confirmed Diverticul ar disease of colon (418199514) Problem Gastroesophageal reflux disease (K21.9) Active confirmed Gastroesophagea l reflux disease (133224747) Encounters Encounter Location Date Provider Diagnosis [facility] Outpatient [address] [place], [place] [phone] 05/20/2024 Marcin Jones Colon cancer screeni ng [...]
[2024-08-26 13:03] VITALS: BP 122/64; PULSE 69; O2SAT 96; BMI 37.1
--- NOTE | 2024-08-26 13:03 | A.OFFVIS_ITS ---
Vital Signs 08/26/24 13:03 Height 5 ft 6 in Weight 230 lb BMI 37.1 BP 122/64 Blood Pressure Location Rt brachial Position Sitting Pulse 69 Pulse Source Doppler Pulse Oximetry (%) 96 Oxygen Delivery Method Room Air Intake Visit Reasons: Follow up after CT Allergies No Known Allergies Allergy (Verified 08/26/24 13:08) HPI HPI Follow up after CT: Details: 78-year-old gentleman, smoker in his teens and 20s, being followed for chronic cough with significant GERD component. After the last office visit patient also was started on antibiotic course with improvement in his cough. He denies any recent exacerbations. He did complete his follow-up CT chest. [facility] Medical History (Updated 08/26/24 @ 13:21 by Remington Schumacher MD) Chronic cough Colon cancer screening Dysphagia Arthritis Knee buckling Asthmatic bronchitis Cough Impaired glucose tolerance Annual physical exam Hypercholesterolemia Thrombocytopenia Vitamin D deficiency Obesity (BMI 30-39.9) Hypertension Surgical History H/O colonoscopy History of cholecystectomy History of inguinal hernia repair History of excision of pilonidal cyst Family History Father Cancer Liver cancer Mother No problems noted. Sister Breast cancer Son In good health Social History (Reviewed 08/26/24 @ 13:08 by Vidhya Nugent COUNT INCLUDES THE [facility]) Housing: House Alcohol intake: current Alcohol intake frequency: does not drink Alcohol type: beer Comment: once a week 1 beer Patient Tobacco Use Status: Former Tobacco user Tobacco use type: Cigarette Years Smoked: 34 years old stopped e-Cigarette/Vaping Use: Never Used Second Hand Smoke Exposure: No service: No Current occupational status: retired Current occupation: rt hand Cognitive needs: No Hearing needs: No Vision needs: Yes Review of Systems Const Denies daytime sleepiness, Denies excessive sweating, Denies fatigue, Denies fever(s), Denies lethargy, Denies malaise, Denies night sweats, Denies snoring and Denies weight loss Eyes Denies blurry vision and Denies itchy eyes ENT Denies nasal congestion, Denies post nasal drip, Denies sinus pain, Denies sinus pressure and Denies other ( Thrush) Card Denies chest pain, Denies pedal edema, Denies dyspnea, Denies orthopnea and Denies paroxysmal nocturnal dyspnea Resp Denies cough, Denies hemoptysis, Denies excessive phlegm production, Denies dyspnea, Denies snoring and Denies wheezing GI Denies abdominal pain and Denies heartburn Musc Denies myalgias, Denies arthralgias and Denies joint swelling Skin/Breast Denies rash Neuro Denies memory loss and Denies seizure-like activity Psych Denies abnormal sleep pattern, Denies anxiety and Denies memory loss Endo Denies excessive sweating, Denies fatigue and Denies heat intolerance Rodney/Lymph Denies easy bruising Aller/Immun Denies itchy eyes, Denies seasonal rhinorrhea and Denies wheezing Physical Exam Vital Signs: Last Vital Signs Pulse 69 08/26/24 13:03 BP 122/64 08/26/24 13:03 Pulse Ox 96 08/26/24 13:03 Oxygen Delivery Method Room Air 08/26/24 13:03 BMI result Body Mass Index 37.1 Const General: no acute distress and alert Nutritional Appearance: not obese Orientation/consciousness: Other orientation findings ( oriented) HEENT Head: Yes atraumatic Eyes General: appearance normal, both eyes and all related structures Sclerae: sclerae normal EOM: EOMs intact bilaterally Neck Neck: Yes supple Lymphatic: no lymphadenopathy noted Resp Effort & Inspection: normal respiratory effort and no use of accessory muscles Auscultation: clear to auscultation bilaterally Cardio Rate: regular rate Rhythm: regular rhythm Heart sounds: no gallops, no murmurs and no rubs Skin General skin exam: other ( warm) Extrem General: No clubbing, No cyanosis and No edema Assessment & Plan Assessment & Plan (1) Cough: Code(s): R05.9 - Cough, unspecified Category: Medical Plan: Improved significantly. Appears to have some GERD component. Continue to monitor clinically. (2) Pulmonary nodules: Comment: June 2024 CT scan Code(s): R91.8 - Other nonspecific abnormal finding of lung field Category: Medical Plan: Results of CT chest from June of 2024 reviewed, overall stable pulmonary nodules, does have what appears to be endobronchial mucus. Will repeat CT chest in May of 2025. Coding Level of Care Code Est Pt Level 4 (33491) Diagnoses Cough R05.9 Pulmonary nodules R91.8
== END 2024-08-26 13:33 | disposition home or self-care (01) ==
PROVIDERS: PCP Internal Medicine; Visit Provider Internal Medicine Pulmonary Disease
DX: R05.9 Cough, unspecified (principal); R91.8 Other nonspecific abnormal finding of lung field
CPT/HCPCS: 99214

== ENCOUNTER 2024-11-11 13:08 | Outpatient (AMB) | payer MEDICARE, SELFPAY ==
[2024-11-11 13:12] VITALS: BP 122/62; PULSE 71; O2SAT 97; BMI 37.8
--- NOTE | 2024-11-11 13:12 | MHC.PC.OV ---
Vital Signs 11/11/24 13:12 Height 5 ft 6 in Weight 234 lb BMI 37.8 BP 122/62 Blood Pressure Location Lt brachial Position Sitting Pulse 71 Pulse Source Pulse Oximeter Pulse Oximetry (%) 97 Oxygen Delivery Method Room Air Intake Visit Reasons: 3mth f/u Allergies No Known Allergies Allergy (Verified 11/11/24 13:12) Tobacco use date assessed: 08/14/24 Fall risk assessment: No Falls in past year Last assessed Fall Risk: 11/11/24 Dental Screening Dental Screen Date: 08/14/24 [facility] Medical History (Updated 08/26/24 @ 13:21 by Remington Schumacher MD) Chronic cough Colon cancer screening Dysphagia Arthritis Knee buckling Asthmatic bronchitis Cough Impaired glucose tolerance Annual physical exam Hypercholesterolemia Thrombocytopenia Vitamin D deficiency Obesity (BMI 30-39.9) Hypertension Surgical History H/O colonoscopy History of cholecystectomy History of inguinal hernia repair History of excision of pilonidal cyst Family History Father Cancer Liver cancer Mother No problems noted. Sister Breast cancer Son In good health Social History Housing: House Alcohol intake: current Alcohol intake frequency: does not drink Alcohol type: beer Comment: once a week 1 beer Patient Tobacco Use Status: Former Tobacco user Tobacco use type: Cigarette Years Smoked: 34 years old stopped e-Cigarette/Vaping Use: Never Used Second Hand Smoke Exposure: No service: No Current occupational status: retired Current occupation: rt hand Cognitive needs: No Hearing needs: No Vision needs: Yes Questionnaire PHQ-9 Over the last 2 weeks, how often have you been bothered by any of the following problems? 1. Little interest or pleasure in doing things: not at all 2. Feeling down, depressed, or hopeless: not at all 3. Trouble falling or staying asleep, or sleeping too much: not at all 4. Feeling tired or having little energy: several days 5. Poor appetite or overeating: not at all 6. Feeling bad about yourself - or that you are a failure or have let yourself or your family down: not at all 7. Trouble concentrating on things, such as reading the newspaper or watching television: not at all 8. Moving or speaking so slowly that other people could have noticed. Or the opposite - being so fidgety or restless that you have been moving around a lot more than usual: not at all 9. Thoughts that you would be better off or of hurting yourself in some way: not at all Total score: 1 Depression Screening Interpretation: Positive Depression Screening Done: Yes 70188 - PHQ-9 Billing: Yes Source: Developed by Drs. Marcin Waters, Ekaterina Pantoja, Alfie Colorado and colleagues, with an educational sushil from [employer]. Thrive Questionnaire Date Thrive assessed: 11/11/24 I am a: Patient What is your living situation today?: I have a steady place to live Within the past 12 months, did the food you bought not last and you didn't have the money to get more?: I choose not to answer this question Within the past 12 months, did you worry whether your food would run out before you got money to buy more?: Never true Do you have trouble paying for medicines?: No Do you have trouble getting transportation to medical appointments?: No Do you have trouble paying your heating and electricity bill?: No Do you have trouble taking care of your child, family member or friend?: No Do you have trouble with day-to-day activities such as bathing, preparing meals, shopping, managing finances, etc.?: No Are you currently unemployed and looking for a job?: I choose not to answer this question Are you interested in more education?: No Please select the resources that you would like help with: None Currently or been in a relationship where the following occur: No concerns reported THRIVE Score: 0 AUDIT C Alcohol Use Questionnaire (AUDIT-C) 1. How often do you have a drink containing alcohol?: 2-4 times a month 2. How many drinks containing alcohol do you have on a typical day when you are drinking?: 1 or 2 3. How often do you have six or more drinks on one occasion?: Less than monthly Total Score: 3 ALEIDA-7 AMB Questionnaire ALEIDA-7 Date ALEIDA - 7 assessed: 08/14/24 Feeling nervous, anxious, or on edge: 0 = Not at all Not being able to stop or control worryin = Not at all Worrying too much about different things: 0 = Not at all Trouble relaxin = Not at all Being so restless that it is hard to sit still: 0 = Not at all Becoming easily annoyed or irritable: 0 = Not at all Feeling afraid as if something awful might happen: 0 = Not at all Total ALEIDA-7 score (0-4 normal; 5-9 mild; 10-14 moderate; 15-21 severe): 0 Source: Developed by Drs. Marcin Waters, Ekaterina Pantoja, Alfie Colorado and colleagues, with an educational sushil from [employer]. Physical exam (Primary Care) Vital Signs: Last Vital Signs Pulse 71 11/11/24 13:12 BP 122/62 11/11/24 13:12 Pulse Ox 97 11/11/24 13:12 Oxygen Delivery Method Room Air 11/11/24 13:12 BMI result Body Mass Index 37.8 Tobacco/Smoking Status: Tobacco use Status Tobacco use date assessed 08/14/24 11/11/24 13:16 Patient Tobacco Use Status Former Tobacco user 11/11/24 13:16 Tobacco use type Cigarette 11/11/24 13:16 e-Cigarette/Vaping Use Never Used 11/11/24 13:16 PHQ-9: PHQ-9 Score PHQ-9: Total score 1 11/11/24 13:37 Depression Screening Interpretation: Positive Thrive Assessment: Date of Thrive Assessment Date Thrive assessed 11/11/24 11/11/24 13:16 Currently or been in a relationship where the following occur: No concerns reported Const General: alert; No acute distress Eyes Conjunctivae: conjunctivae normal Resp Auscultation: clear to auscultation bilaterally Cardio Rate: regular rate Rhythm: regular rhythm GI Inspection: Yes normal to inspection Extrem General: Yes normal to inspection and No edema Coding Level of Care Code Est Pt Level 4 (36453) Complex EM visit Add On G2211 Diagnoses Essential hypertension I10 Hypertension type: essential hypertension Obesity (BMI 30-39.9) E66.9 Hypercholesterolemia E78.00 Impaired glucose tolerance R73.02 Pulmonary nodules R91.8 GERD (gastroesophageal reflux disease) K21.9 Coronary artery disease I25.10 Additional Codes PHQ-9 - 86573 - PHQ-9 Billing: Yes ([id number]) Assessment & Plan Assessment & Plan (1) Hypertension: Code(s): I10 - Essential (primary) hypertension Category: Medical Qualifiers: Hypertension type: essential hypertension Qualified Code(s): I10 - Essential (primary) hypertension Plan: Continue with blood pressure medication. Decrease salt intake and exercise patient on atenolol 50 mg once a day (2) Obesity (BMI 30-39.9): Code(s): E66.9 - Obesity, unspecified Category: Medical Plan: Diet and exercise (3) Hypercholesterolemia: Code(s): E78.00 - Pure hypercholesterolemia, unspecified Category: Medical Plan: Avoid fried foods, chicken skin, eggs, butter margarine, pastries and meat. Be it pork or beef they have a lot of cholesterol discussed with the patient the problem of having coronary artery disease and the need for lowering cholesterol to LDL of 70 and triglyceride of less than 150 (4) Impaired glucose tolerance: Code(s): R73.02 - Impaired glucose tolerance (oral) Category: Medical Plan: Decrease the amount of carbohydrate intake, pasta, bread, rice and potatoes are all sugar and that is aside from all the sweet stuff, remember that fruits are good but they are Sweet also. (5) Pulmonary nodules: Comment: June 2024 CT scan Code(s): R91.8 - Other nonspecific abnormal finding of lung field Category: Medical Plan: Patient had a CAT scan June 2024 patient has seen Pulmonary and repeat CT scan in May 2025 (6) GERD (gastroesophageal reflux disease): Code(s): K21.9 - Gastro-esophageal reflux disease without esophagitis Category: Medical Plan: Avoid the foods that causes that usually spicy foods, tomato products, juices, coffee, soda and foods that your sensitive to. After eating do not lie down, allow 3-4 hours before in lie down. And keep the head of bed above 30 degrees to avoid the acid from going up. (7) Coronary artery disease: Code(s): I25.10 - Atherosclerotic heart disease of [place] coronary artery without angina pectoris Category: Medical Plan: Control the cholesterol, weight, blood pressure, Plan History of Present Illness The patient is a 79-year-old male presenting for a follow-up on cardiovascular and metabolic risk factors. The patient was last seen in August 2024, managing hypertension, hypercholesterolemia, impaired glucose tolerance, and coronary artery disease. During the August visit, blood tests indicated mild thrombocytopenia and hyperkalemia, with the latter attributed to dietary potassium intake. Renal function was normal, and glucose measures showed a trend indicating impaired glucose tolerance without progression to diabetes. The patient's LDL cholesterol was noted to be 96 mg/dL in August which, given his history of coronary artery disease, suggests a need for more aggressive cholesterol management. The patient denied recent symptoms such as chest pain, nausea, or fever, and reported no cardiac-related symptoms during physical activity. There is a significant focus on prevention of exacerbations of coronary artery disease by managing cholesterol levels within targeted limits. Health Maintenance - Discussed cardiovascular risk reduction through diet and exercise. - Recommended LDL cholesterol target to below 70 mg/dL. - Confirmed last colonoscopy was normal (May 2024). - Routine blood tests show normal renal function and stable glucose levels. Social History - Regular physical activity reported mainly through golf, noting slow pace due to age. - Dietary habits include routine intake of potassium-rich foods such as bananas. - No tobacco or alcohol use discussed. Review of Systems - Cardiovascular: Denies chest pain, discomfort during exertion. - General: Reports no recent nausea, vomiting, or fevers. - Musculoskeletal: Denies muscle aches. Physical Exam Results - Labs: Normal blood count with mild thrombocytopenia, potassium 5.2 mmol/L, fasting blood glucose 108 mg/dL, Hemoglobin A1c 5.7%, LDL cholesterol 96 mg/dL. - Tests and Diagnostics: CAT scan showed coronary artery calcifications. Plan Addressed the patient's cardiovascular and metabolic risks by initiating rosuvastatin therapy targeting LDL levels below 70 mg/dL to mitigate coronary artery disease risks. Potential statin side effects were reviewed. Discussed dietary adjustments due to hyperkalemia and stressed the importance of physical activity and weight management. Blood pressure management continues with atenolol. Laboratory re-evaluation for cholesterol and glucose is planned for three months. Patient was informed and verbally consented to the use of an ambient scribe for clinic note documentation during this visit. Discussion Notes I discussed with the patient the implications of his cardiovascular profile, specifically the coronary artery calcifications indicating atherosclerosis. I emphasized the importance of achieving LDL levels below 70 mg/dL and introduced rosuvastatin for this purpose. The benefits of this medication in reducing cardiac events were highlighted along with its common side effects. I advised dietary modifications to manage potassium levels and reiterated the importance of regular exercise and weight control. Plans for lab follow-up in three months to reassess cholesterol and glucose levels were made clear. The patient was encouraged to continue monitoring blood pressure and report any adverse symptoms related to medication. Patient Instructions - Start taking rosuvastatin as prescribed to lower LDL cholesterol. - Monitor and moderate intake of potassium-rich foods. - Continue regular exercise and weight management. - Monitor blood pressure and watch for any unusual symptoms. - Return for lab testing in three months for cholesterol and glucose levels. - Report any muscle pain or other side effects from new medication promptly. Orders: Orders Hemoglobin A1c 3 Months E78.00 - Pure hypercholesterolemia, unspecified Lipid Panel 3 Months E78.00 - Pure hypercholesterolemia, unspecified Comprehensive Met. Panel 3 Months E78.00 - Pure hypercholesterolemia, unspecified Medications: New rosuvastatin 5 mg PO DAILY 30 tabs 4RF E78.00 - Pure hypercholesterolemia, unspecified
--- OUTSIDE RECORDS SUMMARY | 2024-11-11 14:22 | XMS_ITS ---
Author Organization [facility] Address [address] [place] [address] Care Team Providers Care Bell Maker Name Role Phone Adebayo Plunkett MD Primary Care Provider Marcin Leon [phone] Allergies No Known Allergies REASON FOR VISIT patient presents today for colon screening/chronic cough Medications Medication SIG (Take, Route, Fr equency, Duration) Notes Start Date End Date Status Multivitamin - 1 tablet Orally Once a day for 30 day(s) Active Atenolol 50 MG TAKE 1 TABLET BY PATT TH EVERY DAY Oral for 90 Active Fish Oil Active Aleve 220 MG 1 tablet with food o r milk as needed Orally every 12 hrs Active Social History Tobacco Use: Social History Observation Description Date Details (start date - stop date) Former Smoker NA - NA Tobacco Use/Smoking Question Answer Notes Patient is [...] Never (0 point) Points 1 Interpretation Negative Section Notes: quit smoking age 34 occasional beer Problems Problem Type SNOMED Code ICD Code Onset Dates Problem Status W/U Status Risk Notes Problem Barium swallow abnormal (687011726) Abnormal barium swallow (R93.3) Active confirmed Problem Colon cancer screening (619406456) Colon cancer screening (Z12.11) Active confirmed Problem Chronic cough (58831080) Chronic cough (R05.3) Active confirmed Problem Abnormal CT of liver (R93.2) Active confirmed Vital Signs Blood pressure systolic 00 mm Hg 01/28/20 24 Blood pressure diastolic 00 mm Hg 024 Height 5 ft 6 in in 01/28/2024 Weight 236 lbs 01/28/2024 BMI 38.09 kg/m2 01/28/2024 Encounters Encounter Location Date Provider Diagnosis [facility] [address] [place] [address] 01/28/2024 Marcin Jones Abnormal barium swallow R93.3 ; Colon cancer screening Z12.11 ; Chronic cough R05.[address] of liver R93.2 Assessments Encounter Date Diagnosis (ICD Code) Assessment Notes Treatment Notes Treatment Clinical Notes Section Notes 01/28/2024 Abnormal barium swallow (ICD-10 - R93.3) Stop Aleve and Fish oil for 1 week ebfore the procedures Overall, Edmundo appears well. Given his age and good clinical appearance, I did recommend a colonoscopy for screening purposes. We did review the rationale for that in regard to colon cancer prevention. He was given the below instructions regarding adjustment of his medications for the procedure. In regard to his chronic coughing I do not think this is related to an underlying GI problem. While his barium swallow did show multiple and probable incidental findings, there did not appear to be any sign of aspiration or other oropharyngeal issue that would be contributing to his coughing. I did advise him to followup with either pulmonary or speak with you about a referral to see ENT for further evaluation of the coughing. I did recommend an upper endoscopy for evaluation of the barium swallow findings, particularly the questionable narrowing at the gastroesophageal juncon and the inflammation in the proximal stomach. Full consent is obtained from him for both procedures, including risks of bleeding and perforation. The procedures will be done with monitored anesthesia care. I also recommended a MRI of the liver given the questionable CT scan report from last June in regard to his liver to definitively exclude any type of mass. Edmundo was comfortable with this plan. Thank you again for allowing me to participate in Edmundo's care. I shall continue to keep you advised of his progress. 01/28/2024 Colon cancer screening (ICD-10 - Z12.11) Overall, Edmundo appears well. Given his age and good clinical appearance, I did recommend a colonoscopy for screening purposes. We did review the rationale for that in regard to colon cancer prevention. He was given the below instructions regarding adjustment of his medications for the procedure. In regard to his chronic coughing I do not think this is related to an underlying GI problem. While his barium swallow did show multiple and probable incidental findings, there did not appear to be any sign of aspiration or other oropharyngeal issue that would be contributing to his coughing. I did advise him to followup with either pulmonary or speak with you about a referral to see ENT for further evaluation of the coughing. I did recommend an upper endoscopy for evaluation of the barium swallow findings, particularly the questionable narrowing at the gastroesophageal juncon and the inflammation in the proximal stomach. Full consent is obtained from him for both procedures, including risks of bleeding and perforation. The procedures will be done with monitored anesthesia care. I also recommended a MRI of the liver given the questionable CT scan report from june in regard to his liver to definitively exclude any type of mass. Edmundo was comfortable with this plan. Thank you again for allowing me to participate in Edmundo's care. I shall continue to keep you advised of his progress. 01/28/2024 Chronic cough (ICD-10 - R05.3) Speak with Dr. Plunkett about referral to ENT or back to Pulmonary for your cough Overall, Edmundo appears well. Given his age and good clinical appearance, I did recommend a colonoscopy for screening purposes. We did review the rationale for that in regard to colon cancer prevention. He was given the below instructions regarding adjustment of his medications for the procedure. In regard to his chronic coughing I do not think this is related to an underlying GI problem. While his barium swallow did show multiple and probable incidental findings, there did not appear to be any sign of aspiration or other oropharyngeal issue that would be contributing to his coughing. I did advise him to followup with either pulmonary or speak with you about a referral to see ENT for further evaluation of the coughing. I did recommend an upper endoscopy for evaluation of the barium swallow findings, particularly the questionable narrowing at the gastroesophageal juncon and the inflammation in the proximal stomach. Full consent is obtained from him for both procedures, including risks of bleeding and perforation. The procedures will be done with monitored anesthesia care. I also recommended a MRI of the liver given the questionable CT scan report from june in regard to his liver to definitively exclude any type of mass. Edmundo was comfortable with this plan. Thank you again for allowing me to participate in Edmundo's care. I shall continue to keep you advised of his progress. 01/28/[address] of liver (ICD-10 - R93.2) Overall, Edmundo appears well. Given his age and good clinical appearance, I did recommend a colonoscopy for screening purposes. We did review the rationale for that in regard to colon cancer prevention. He was given the below instructions regarding adjustment of his medications for the procedure. In regard to his chronic coughing I do not think this is related to an underlying GI problem. While his barium swallow did show multiple and probable incidental findings, there did not appear to be any sign of aspiration or other oropharyngeal issue that would be contributing to his coughing. I did advise him to followup with either pulmonary or speak with you about a referral to see ENT for further evaluation of the coughing. I did recommend an upper endoscopy for evaluation of the barium swallow findings, particularly the questionable narrowing at the gastroesophageal juncon and the inflammation in the proximal stomach. Full consent is obtained from him for both procedures, including risks of bleeding and perforation. The procedures will be done with monitored anesthesia care. I also recommended a MRI of the liver given the questionable CT scan report from last June in regard to his liver to definitively exclude any type of mass. Edmundo was comfortable with this plan. Thank you again for allowing me to participate in Edmundo's care. I shall continue to keep you advised of his progress. Plan Of Treatment Treatment Notes Assessment Notes Abnormal barium swallow [...] Follow Up: prn, Reason: Progress Notes * EDMUNDO BOYDDOB:1945 (78 yo M)Acc No.[id number]:01/28/2024 Progress Notes Patient:?EDMUNDO BOYD Provider:?Marcin Jones MD :1945???Age:78 Y???Sex:Male Aaron e:01/28/2024 Address:[address] [place], [place] [id number] Pcp:Adebayo Plunkett MD Subjective: * Chief Complaints: * ???Patient presents today fo r colon screening/chronic cough * HPI: ???incontinence:? I saw Edmundo in consultation today for further evaluation of his chronic cough, abnormal barium swallow, and need for colorectal cancer screening. ?As you know, Edmundo is a 78-year-old male who describes a long-standing history of an ongoing cough for least 2 years. This has not been associated with any hemoptysis, fevers, nor any upper GI complaints such as heartburn, dysphagia, nausea, vomiting, anorexia, nor early satiety. He did have a barium swallow in November that did not describe any sign of aspiration. The study describes multiple incidental findings including a nonobstructing anterior cervical esophageal web, multiple osteophytes of the cervical and thoracic spine consistent with ankylosing spondylitis causing some compression of the posterior wall of the esophagus, some esophageal dysmotility, some mild narrowing of the distal esophagus above his hiatal hernia, and possibly some proximal gastric erosions. In regard to his cough he has been seen by pulmonary for that. He did have a CT scan of his chest last June describing multiple tiny pulmonary nodules. 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 ?He otherwise feels well in general and is not having any GI symptoms. He denies abdominal pain, jaundice, nor unintentional weight loss. He reports that his bowel movements have been regular and without any signs of bleeding. He denies any known first-degree relatives with colorectal cancer. ?His CT scan of the chest last June also described a 1.2 cm area of probable fatty sparing in the liver but a mass could not definitively be excluded and the CT scan report describes the recommendation of a MRI of the liver for further evaluation. * ROS:?General/Constitutional:?Change in appetite?denies.?Chills?denies.?Fatigue?denies.?Ophthalmologic:?Comments?all negative.?ENT:?Comments?all negative.?Respiratory:?hemoptysis?denies.?Cough?denies.?Cardiovascular:?Chest pain?denies.?Orthopnea?denies.?Gastrointestinal:?Comments?See HPI for details.?Genitourinary:?Hematuria?denies.?Dysuria?denies.?Musculoskeletal:?Painful joints?denies.?Weakness?denies.?Skin:?Itching?denies.?Rash?denies.?Neurologic:?Headache?denies.?Seizures?denies.?Psychiatric:?Comments?all negative.? * Medical History:? * Surgical History:?Pilonidal cyst 1969Right inguinal hernia [facility] * Hospitalization/Major Diagno stic Procedure:?No Hospitalization History. * Family History:?Father: dece ased, diagnosed with HTN (hypertension).?Mother: 98 yrs, diagnosed with HTN (hypertension).? No colorectal cancer. * Social History:?Tobacco Use:?Tobacco Use/Smoking?Patient is a?former smoker,?How long has it been since you last smoked??> 10 years.?Drugs/Alcohol:?Alcohol Screen?Did you have a drink containing alcohol in the past year??Yes,?How often did you have a drink containing alcohol in the past year??Monthly or less (1 point), How many drinks did you have on a typical day when you were drinking in the past year??1 or 2 drinks (0 point),?How often did you have 6 or more drinks on one occasion in the past year??Never (0 point),?Points?1,?Interpretation?Negative.?Miscellaneous:?Marital status: 55 years. Occupation: retired. ???quit smoking age 34 occasional beer. * Medications:?TakingFish Oil Multivitamin - Tablet 1 tablet Orally Once a dayAleve 220 MG Tablet 1 tablet with food or milk as needed Orally every 12 hrsAtenolol 50 MG Tablet TAKE 1 TABLET BY MOUTH EVERY DAY Oral Medication List reviewed and reconciled with the patientTaking Fish Oil Taking Multivitamin - Tablet 1 tablet Orally Once a dayTaking Aleve 220 MG Tablet 1 tablet with food or milk as needed Orally every 12 hrsTaking Atenolol 50 MG Tablet TAKE 1 TABLET BY MOUTH EVERY DAY Oral Medication List reviewed and reconciled with the patient * Allergies:?N.K.D.A.yes[Aller gies Verified] Objective: * Vitals:?Wt: 236 lbs, Ht: 5 f t 6 in, BMI:38.09 Index, BP: 00/00 mm Hg. * Examination: ???General Examination: ?GENERAL APPEARANCE:?pleasant, well nourished, well developed, in no acute distress.?EYES:?sclera non-icteric.?ORAL CAVITY:?mucosa moist.?NECK/THYROID:?no cervical lymphadenopathy, neck supple.?SKIN:?nonjaundiced, no spider angiomata.?HEART:?S1, S2 normal.?LUNGS:?clear to auscultation bilaterally.?ABDOMEN:?normal bowel sounds, no guarding or rigidity, no guarding or rigidity, no masses palpable, soft, nontender, nondistended.?EXTREMITIES:?no edema.?NEUROLOGIC:?alert and oriented.? Assessment: * Assessment: 1.?Abnormal barium swallow - R93.3 (Primary)?2.?Colon cancer screening - Z12.11?3.?Chronic cough - R05.3?4.?Abnormal CT of liver - R93.2? Overall, Edmundo appears well. Given his age and good clinical appearance, I did recommend a colonoscopy for screening purposes. We did review the rationale for that in regard to colon cancer prevention. He was given the below instructions regarding adjustment of his medications for the procedure. In regard to his chronic coughing I do not think this is related to an underlying GI problem. While his barium swallow did show multiple and probable incidental findings, there did not appear to be any sign of aspiration or other oropharyngeal issue that would be contributing to his coughing. I did advise him to followup with either pulmonary or speak with you about a referral to see ENT for further evaluation of the coughing. I did recommend an upper endoscopy for evaluation of the barium swallow findings, particularly the questionable narrowing at the gastroesophageal juncon and the inflammation in the proximal stomach. Full consent is obtained from him for both procedures, including risks of bleeding and perforation. The procedures will be done with monitored anesthesia care. I also recommended a MRI of the liver given the questionable CT scan report from last June in regard to his liver to definitively exclude any type of mass. Edmundo was comfortable with this plan. Thank you again for allowing me to participate in Edmundo's care. I shall continue to keep you advised of his progress. Plan: * Treatment: Notes: Stop Aleve and Fish oil for 1 week ebfore the procedures??2.?Colon cancer screening?Procedure: COLONOSCOPY (Ordered for 01/28/2024)* with MACsched for 05/20/24 a t 8:30 am 3.?Chronic cough?Procedure: UPPER GI ENDOSCOPY (Ordered for 01/28/2024)* with MACsched for 05/20/24 a t 8:40 am Notes: Speak with Dr. Plunkett about referral to ENT or back to Pulmonary for your cough??4.?Abnormal CT of liver?LAB: BUN ?LAB: Creatinine ?Imaging: MRI ABD W&WO CONTRAST* * Procedure Codes:?1036F TOBAC CO [id number] BP SCR NOT PRFRM REC REASON NOS * Preventive Medicine:? ??Counseling:?Care goal follow-up plan:?Above Normal BMI Follow-up?Giving encouragement to exercise,?BMI management provided?Yes.? ??Screenings:?Fall Risk Screening?Fall Risk Assessment:?No falls in the past year.? * Follow Up:?prn * * Sign off status: Completed true * Provider:?Marcin Jones MD Date:? 024 Generated for Francisco J aponte/Faxing/eTransmitting on:?11/11/2024 02:22 PM EDT History and Physical Notes * HPI (History of Present Illness) Category Sub-Category Detail Notes Category Not es incontinence I saw Edmundo in consultation today for further evaluation of his chronic cough, abnormal barium swallow, and need for colorectal cancer screening. As you know, Edmundo is a 78-year-old male who describes a long-standing history of an ongoing cough for least 2 years. This has not been associated with any hemoptysis, fevers, nor any upper GI complaints such as heartburn, dysphagia, nausea, vomiting, anorexia, nor early satiety. He did have a barium swallow in November that did not describe any sign of aspiration. The study describes multiple incidental findings including a nonobstructing anterior cervical esophageal web, multiple osteophytes of the cervical and thoracic spine consistent with ankylosing spondylitis causing some compression of the posterior wall of the esophagus, some esophageal dysmotility, some mild narrowing of the distal esophagus above his hiatal hernia, and possibly some proximal gastric erosions. In regard to his cough he has been seen by pulmonary for that. He did have a CT scan of his chest last June describing multiple tiny pulmonary nodules. He does have a previous history of having worked in a paper [employer] He otherwise feels well in general and is not having any GI symptoms. He denies abdominal pain, jaundice, nor unintentional weight loss. He reports that his bowel movements have been regular and without any signs of bleeding. He denies any known first-degree relatives with colorectal cancer. His CT scan of the chest last June also described a 1.2 cm area of probable fatty sparing in the liver but a mass could not definitively be excluded and the CT scan report describes the recommendation of a MRI of the liver for further evaluation. Examination Category Sub-Category Detail Notes Category Not es General Examination GENERAL APPEARANCE: pleasant , well [...]
--- OUTSIDE RECORDS SUMMARY | 2024-11-11 14:22 | XMS_ITS | Patient Health Record ---
Author Organization [facility] Address [address] [place] [address] Care Team Providers Care Professor Computer Science Name Role Phone Adebayo Plunkett MD Primary Care Provider Marcin Leon [phone] Allergies No Known Allergies Results Component Value Reference Range Notes Complete Blood Count Auto Di ff Reviewed date:02/22/2024 01:21:11 PM Interpretation: Performing Lab:[facility], [address] [place] [phone] Notes/Report: White Blood Count 4.7 4.8-10.8 X10*3/uL [...] 0.0-0.2 /100WBC Neutrophils Absolute Auto 2.3 2.0-8.3 x10*3/uL Imm Gran Abs Auto 0.02 0.00-0.03 X10*3/uL Lymphocytes Absolute Auto 1.9 1.2-4.9 X10*3/uL Monocytes Absolute Auto 0.4 0.1-1.2 X10*3/uL Eosinophils Absolute Auto 0.1 0.0-0.4 X10*3/uL Basophils Absolute Auto 0.0 0.0-0.2 X10*3/uL NRBC Abs Auto 0.000 0.0-0.012 X10*3/uL Erythrocyte Sedimentation Ra te Reviewed date:02/22/2024 01:22:16 PM Interpretation: Performing Lab:[facility], [address] [place] [phone] Notes/Report: Erythrocyte Sedimentation Rate 3 0-15 MM/HR Patients with polycythemia and many hemoglobin abnormalities may have depressed sed rates whereas patients with anemia may have elevated sed rates. Comprehensive Met. Panel Reviewed date:02/22/2024 01:22:44 PM Interpretation: Performing Lab:[facility], [address] [place] [phone] Notes/Report: Sodium 141 135-145 mmol/L Potassium 4.3 3.3-5.1 mmol/L Chloride 107 96-108 mmol/L Carbon Dioxide 26 22-29 mmol/L Anion Gap 12 12-20 Blood Urea Nitrogen 12 9-16 mg/dL Creatinine 0.94 0.5-1.4 mg/dL Estimated Glomerular Filt Rate > 60 NOTE: For -[place] individuals, multiply the result by 1.210. Chronic [...] Protein Reviewed date:02/22/2024 01:22:52 PM Interpretation: Performing Lab:[facility], [address] [place] [phone] Notes/Report: C Reactive Protein 0.19 < or = 0.50 mg/dL Lipid Panel Reviewed date:02/22/2024 01:23:00 PM Interpretation: Performing Lab:[facility], [address] [place] [phone] Notes/Report: Triglycerides 163 <150 mg/dL Desirable Triglyceride: [...] Folate Reviewed date:02/22/2024 01:43:39 PM Interpretation: Performing Lab:[facility], [address] [place] [phone] Notes/Report: Vitamin B12 521 200-900 pg/mL NORMAL 200-900 PG/ML INDETERMINATE 160-199 PG/ML DEFICIENT < 160 PG/ML Folate 12.9 > or = 4.0 ng/mL Reference Values: > or = 4.0 ng/mL < 4.0 ng/mL suggests folate deficiency Methotrexate, aminopterin and folinic acid (leucovorin) are chemotherapeutic agents whose molecular structures are similar to folate; therefore, the Pathology Transcriptionist folate assay cannot be used for patients using these drugs. Free T4 (Free Thyroxine) Reviewed date:02/22/2024 01:23:08 PM Interpretation: Performing Lab:[facility], [address] [place] [phone] Notes/Report: Free T4 (Free Thyroxine) 1.03 0.71-1.85 ng/dL Thyroid Stimulating Hormone Reviewed date:02/22/2024 01:23:28 PM Interpretation: Performing Lab:[facility], [address] [place] [phone] Notes/Report: Thyroid Stimulating Hormone 0.88 0.32-4.0 uIU/mL TSH 3rd Generation ([facility]) Hemoglobin A1c Reviewed date:02/22/2024 01:22:07 PM Interpretation: Performing Lab:[facility], [address] [place] [phone] Notes/Report: Hemoglobin A1c % 5.7 <6.0 % [...] average glucose, using the formula of the X5S-Sljkkrt Average Glucose study (ADAG), Diabetes Care, Vol.31,#8, Feb. 2007 Pathology (Not yet reviewed by provider) Interpretation: Performing Lab:[facility], [address] [place] [phone] Notes/Report: -- ---- Name: KobeEdmundo Leland Age/Sex: 78/M : 1945 Unit#: [id number] Attend Dr: Marcin Jones MD Re05/20/24 Status : [facility] Location: [facility] Disch: -- ---- SPEC : [id number] RECD : 05/20/24 STATUS: TRAVIS SHAW NUM: [id number] NELSON: 05/20/24[address] [facility] DR: Marcin Jones MD ENTERED: 05/20/24 SP TYPE: Surgical OTHR DR: Adebayo Plunkett MD ORDERED: HE Stain/6, Gross Micro L4/2, Special st. 2, AB/PAS Addendum Addendum 1 Entered: 05/22/24 A. The special stain for AB/PAS is negative for intestinal metaplasia. Addendum Signed (signature on file) Melissa Escobar MD 05/22/24 1020 -- ---- Diagnosis A. Esophagogastric junction, at 39 cm, biopsy: Squamous mucosa with mild spongiosis and focal intraepithelia l neutrophils and eosinophils (up to 5 per high-power field) and columnar mucosa with moderate inflammation, consistent with esophagitis; no intestinal metaplasia seen on initial levels; negative for dysplasia. B. Colon, transverse , polyp: Benign inflammatory polyp with minor hyperplastic changes; no adenomatous dysplasia seen. Comment: (A): AB/PAS stain pending; addendum to follow. Clinical History Pre-Op Dx: Abnormal findings on diagnostic imaging of other parts of digestive tract, colon screening Post-Op Dx: Hiatal hernia, reflux, colon polyp,hemorrhoids, diverticulosis Microscopic Description Multiple microscopic sections reviewed. Material Received A. EG junction @ 39 B. Transverse colon polyp CONTINUED ON NEXT PAGE -- ---- Name: Edmundo Boyd Age/Sex: 78/M : 1945 Unit#: [id number] Attend Dr: Marcin Jones MD Re05/20/24 Status : [facility] Location: [facility] Disch: -- ---- SPEC : [id number] RECD : 05/20/24 STATUS: TRA[facility] SHAW NUM: [id number] NELSON: 05/20/[address] [facility] [address]: Marcin Jones MD ENTERED: 05/20/24 SP TYPE: Surgical OTHR DR: Adebayo Plunkett MD ORDERED: HE Stain/6, Gross Micro L4/2, Special st. 2, AB/PAS Gross Description Received in two parts. Part A: Received in formalin labeled ?EG junction at 39? are 2 houston-pink rectangular tissue fragments each measuring 0.35 cm, submitted in toto in a cassette labeled A. Part B: Received in formalin labeled ?transverse colon polyp? is a 0.3 cm houston papular tissue fragment, submitted in toto in a cassette labeled B. CEDS Special studies ordered and performed: AB/PAS stains on A1. Copies To: Adebayo Plunkett MD [facility] Primary Care,[address] [place], [place] [phone] Marcin Jones MD [facility] [address] [place], [place] [phone] -- ---- Signed (signature on file) Katina Key 05/21/24 1348 (signature on file) Melissa Escobar MD 05/22/24 1020 -- ---- END OF REPORT Reason For Referral No Information Medications Medication SIG (Take, Route, Fr equency, Duration) Notes Start Date End Date Status Multivitamin - 1 tablet Orally Once a day for 30 day(s) Active Atenolol 50 MG TAKE 1 TABLET BY PATT EVERY DAY Oral for 90 Active Fish [...] Problem Status W/U Status Risk Notes Problem Colon cancer screening (549569329) Colon cancer screening (Z12.11) Active confirmed Problem Diverticular disease of colon (112618972) Diverticulosis of large intestine without perforation or abscess without bleeding (K57.30) Active confirmed Problem Gastroesophageal reflux disease (855258779) Gastroesophageal reflux disease (K21.9) Active confirmed Problem Abnormal findings diagnostic imaging of liver and biliary tract (292970790) Abnormal CT of liver (R93.2) Active confirmed Problem Barium swallow abnormal (148454048) Abnormal barium swallow (R93.3) Active confirmed Problem Chronic cough (48362334) Chronic cough (R05.3) Active confirmed Vital Signs Blood pressure diastolic 00 mm Hg 01/28/2024 Height 5 ft 6 in in 01/28/2024 Blood pressure systolic 00 mm Hg 01/28/2024 Weight 236 lbs 01/28/2024 BMI 38.09 kg/m2 01/28/2024 Encounters Encounter Location Date Provider Diagnosis [facility] [address] [place] [phone] 05/20/2024 Marcin Jones Colon cancer screeni ng Z12.11 ; Colon polyps K63.5 ; Diverticulosis of large intestine without perforation or abscess without bleeding K57.30 ; Other hemorrhoids K64.8 ; Gastroesophageal reflux disease K21.9 ; Hiatal hernia K44.9 ; Abn findings-GI tract R93.3 and Chronic cough R05.3 [facility] [address] [place] [phone] 01/28/2024 Marcin Jones Abnormal barium swal low R93.3 ; Colon cancer screening Z12.11 ; Chronic cough R05.[address] of liver R93.2 [facility] [address] [place] [phone] 02/14/2024 Marcin Jones Assessments Encounter Date Diagnosis (ICD Code) Assessment Notes Treatment Notes Treatment Clinical Notes Section Notes 05/20/2024 Colon cancer screening (ICD-10 - Z12.11) 05/20/2024 Colon polyps (ICD-10 - K63.5) 01/28/2024 Colon cancer screening (ICD-10 - Z12.11) [...] you advised of his progress. 01/28/2024 Abnormal barium swallow (ICD-10 - R93.3) [...] to keep you advised of his progress. 05/20/2024 Diverticulosis of large intestine without perforation or abscess without bleeding (ICD-10 - K57.30) 01/28/2024 Chronic cough (ICD-10 - R05.3) Speak [...] to keep you advised of his progress. 05/20/2024 Other hemorrhoids (ICD-10 - K64.8) 01/28/2024 [...] to keep you advised of his progress. 05/20/2024 Gastroesophageal reflux disease (ICD-10 - K21.9) 05/20/2024 Hiatal hernia (ICD-10 - K44.9) 05/20/2024 Abn findings-GI tract (ICD-10 - R93.3) 05/20/2024 Chronic cough (ICD-10 - R05.3) Plan Of Treatment Pending Test Test Name Order Date BUN 01/28/2024 MRI ABD W&WO CONTRAST 01/28/2024 Creatinine 01/28/2024 Pathology 05/20/2024 Future Test Test Name Order Date UPPER GI ENDOSCOPY 01/28/2024 COLONOSCOPY 01/28/2024 Insurance Providers Payer Name Payer Address Payer Phone Subscriber Number Group Number Insured Name Patient Relationship to Insured Coverage Start Date Coverage End Date [facility] [address] [place] [address] [id number] SHAYECALI EDMUNDO Self - patient is the insured Medical (General) History Medical History History ICD Code Hypertension Denies LA,DM,CVA,Lung disease,renal dise ase 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
--- OUTSIDE RECORDS SUMMARY | 2024-11-11 14:23 | XMS_ITS ---
Author Organization [facility] Address [address] [place] [phone] Care Team Providers Care Computer Methods Analyst Name Role Phone Adebayo Plunkett MD Primary Care Provider Marcin Leon [phone] REASON FOR VISIT Needs MRI of the Encounters Encounter Location Date Provider Diagnosis [facility] [address] [place] [phone] 02/14/2024 Marcin Jones Plan Of Treatment No Information Progress Notes * SWAPNA BOYDDOB:1945 (78 yo M)Acc No.[id number]:02/14/2024 Patient:?SWAPNA BOYD :1945???Age:78 Y???Sex:Male Address:[address] [place] [id number] Subjective: * Chief Complaints: * ???Needs MRI of the * Medical History:? * Surgical History:? * Hospitalization/Major Diagno stic Procedure:? * Medications:? Objective: Assessment: Plan: * Treatment: * Procedure Codes:? * true * Date:? Generated for Francisco J aponte/Evaristo/eTransmitting on:?11/11/2024 02:22 PM EDT
--- OUTSIDE RECORDS SUMMARY | 2024-11-11 14:23 | XMS_ITS ---
Author Organization [facility] Address [address] [place] [address] Care Team Providers Care Data Processing Systems Project Planner Name Role Phone Po Adebayo POLANCO Primary Care Provider Marcin Leon [phone] REASON FOR VISIT screening, abn barium swallow,chronic cough Problems Problem Type SNOMED Code ICD Code Onset Dates Problem Status W/U Status Risk Notes Problem Diverticular disease of colon (496512109) Diverticulosis of large intestine without perforation or abscess without bleeding (K57.30) Active confirmed Problem Gastroesophageal reflux disease (K21.9) Active confirmed Encounters Encounter Location Date Provider Diagnosis [facility] [address] [place], [place] [phone] 05/20/2024 Marcin Jones Colon cancer screeni ng [...] Notes * SWAPNA BOYDDOB:1945 (79 yo M)Acc No.[id number]:05/20/2024 EGD and COL/MAC Patient:?SWAPNA BOYD Provider:?Marcin Jones MD :1945???Age:78 Y???Sex:Male Aaron e:05/20/2024 Address:[address] [place], [place] [phone] Pcp:Adebayo Plunkett MD Subjective: * Chief Complaints: * ???1. Screening, abn barium swallow,chronic cough. * Medical History:? Objective: * Vitals:? Assessment: * Assessment: 1.?Colon cancer screening - Z12.11 (Primary)???2.?Colon polyps - K63.5???3.?Diverticulosis of large intestine without perforation or abscess without bleeding - K57.30???4.?Other hemorrhoids - K64.8???5.?Gastroesophageal reflux disease - K21.9???6.?Hiatal hernia - K44.9???7.?Abn findings-GI tract - R93.3???8.?Chronic cough - R05.3??? Plan: * Treatment: * Procedure Codes:?48634 LESIO N REMOVAL COLONOSCOPY, 0529F INTRVL 3+YRS PTS CLNSCP DOCD, 0528F RCMND FLW-UP 10 YRS DOCD, Modifiers: 1P , 54418 UPPER GI ENDOSCOPY, BIOPSY * * The named appointment provid er may or may not be the originator of this progress note, and it is not deemed complete until electronically signed by the appointment provider. Sign off status: Pending * Provider:?Marcin Jones MD Date:? 024 Generated for Vijayi fay/Evaristo/eTransmitting on:?11/11/2024 02:22 PM EDT
== END 2024-11-11 13:49 | disposition home or self-care (01) ==
LOC: HO.HMCH 13:09
PROVIDERS: PCP Internal Medicine; Visit Provider Internal Medicine
DX: I10 Essential (primary) hypertension (principal); E66.9 Obesity, unspecified; Z68.37 Body mass index [BMI] 37.0-37.9, adult; E78.00 Pure hypercholesterolemia, unspecified; R73.02 Impaired glucose tolerance (oral); R91.8 Other nonspecific abnormal finding of lung field; K21.9 Gastro-esophageal reflux disease without esophagitis; I25.10 Atherosclerotic heart disease of native coronary artery without angina pectoris

== ENCOUNTER → 2024-11-11 13:08 | Outpatient (BNVA) | payer MEDICARE, SELFPAY | PROVIDERS: PCP Internal Medicine; Visit Provider Internal Medicine | DX: I10 Essential (primary) hypertension (principal); E66.9 Obesity, unspecified; Z68.37 Body mass index [BMI] 37.0-37.9, adult; E78.00 Pure hypercholesterolemia, unspecified; R73.02 Impaired glucose tolerance (oral); R91.8 Other nonspecific abnormal finding of lung field; K21.9 Gastro-esophageal reflux disease without esophagitis; I25.10 Atherosclerotic heart disease of native coronary artery without angina pectoris; Z79.899 Other long term (current) drug therapy | CPT/HCPCS: 96127; 99212 ==

== ENCOUNTER 2024-12-02 12:58 | Outpatient (AMB) | payer MEDICARE, SELFPAY ==
[2024-12-02 13:10] VITALS: BP 130/74; PULSE 71; TEMP 36.1; BMI 37.1
--- NOTE | 2024-12-02 13:10 | MHC.OFFVIS ---
Vital Signs 12/02/24 13:10 Height 5 ft 6 in Weight 230 lb 2.601 oz BMI 37.1 BP 130/74 Blood Pressure Location Lt brachial Position Sitting Pulse 71 Pulse Source Pulse Oximeter Temp 97 F Temp Source Oral Intake Visit Reasons: Intake Note: Patient presents for follow up. Allergies No Known Allergies Allergy (Verified 12/02/24 13:11) HPI Comments Details: Patient is a 79-year-old male with hypertension complicated by coronary artery disease, hyperlipidemia, GERD, and polyarticular osteoarthritis here today for follow up Interval History: Patient last seen 02/12/[address] Link. At that time he was following up for polyarticular osteoarthritis and a new evaluation of ankylosing spondylitis. He had done a barium swallow on a background of being evaluated for his GERD which showed findings suggestive of ankylosing spondylitis. His exam did not show any conclusive evidence of ankylosing spondylitis. And because DISH can be difficult to be distinguished from spondylitis on imaging dedicated views of the spine were ordered as well as blood work. Today he is here for follow up Continues to deny back pain Rheumatologic History: Initial history with Dr. Link: This is a 78-year-old male with history of generalized osteoarthritis who presents as a new patient to evaluate for ankylosing spondylitis. Patient has been having intermittent cough for more than a year. States that his cough is worse around 04:00. He denies any dysphagia. Tried sleeping using 3 pillows but there was no difference compared to 1 pillow. His barium swallow showed findings suggestive of ankylosing spondylitis. Over the last year patient has noted significant limitation of range of motion of his neck. Patient however denied any history of chronic back pain or prolonged stiffness. Denied any history of swollen joints. States that he has been taking Aleve regularly for bilateral thumb pain. Has any history suggestive of uveitis or colitis. Denies history of psoriasis. He is unaware of any family history of an autoimmune rheumatic disease. Current Rheumatology Medication(s): [facility] Medical History (Updated 08/26/24 @ 13:21 by Remington Schumacher MD) Chronic cough Colon cancer screening Dysphagia Arthritis Knee buckling Asthmatic bronchitis Cough Impaired glucose tolerance Annual physical exam Hypercholesterolemia Thrombocytopenia Vitamin D deficiency Obesity (BMI 30-39.9) Hypertension Surgical History H/O colonoscopy History of cholecystectomy History of inguinal hernia repair History of excision of pilonidal cyst Family History Father Cancer Liver cancer Mother No problems noted. Sister Breast cancer Son In good health Social History Housing: House Alcohol intake: current Alcohol intake frequency: does not drink Alcohol type: beer Comment: once a week 1 beer Patient Tobacco Use Status: Former Tobacco user Tobacco use type: Cigarette Years Smoked: 34 years old stopped e-Cigarette/Vaping Use: Never Used Second Hand Smoke Exposure: No service: No Current occupational status: retired Current occupation: rt hand Cognitive needs: No Hearing needs: No Vision needs: Yes Review of Systems Const Details: Review of Systems Constitutional: Denies fever, chills, weight loss ENT: Denies vision changes, eye pain or eye redness, dental caries, dry mouth GI: Denies nausea, vomiting, diarrhea, abdominal pain, change in BM Pulm: Denies SOB, REVELES, hemoptysis, wheezing Cards: Denies chest pain, palpitations Skin: Denies Raynaud's, rash, nail changes, photosensitivity, DATA MODELING ARCHITECT: Denies headaches, weakness, paresthesias, recurrent falls MSK: as per HPI All other systems reviewed and are unremarkable except noted above Physical Exam Vital Signs: Last Vital Signs Temp 97 F 12/02/24 13:10 Pulse 71 12/02/24 13:10 BP 130/74 12/02/24 13:10 BMI result Body Mass Index 37.1 Vital signs reviewed Physical Examination CONSTITUITIONAL Patient alert and cooperative. Well appearing and in no apparent painful distress HEENT Conjunctiva and sclera clear. ?Pupils equal round and reactive to light. ?No lymphadenopathy. ? CHEST/RESPIRATORY SYSTEM Normal respiratory effort and able to speak in complete sentences. ?Clear to auscultation bilaterally. ?No crackles, rales, rhonchi, wheezes heard. CARDIAC SYSTEM Regular rate and rhythm. ?S1 and S2 heard no murmurs. ?Radial pulses intact bilaterally MSK Neck: Decreased ROM bilaterally Hands: ?Able to make a fist. No synovitis noted to the MCPs, PIPs or DIPs. ?No tenderness to palpation of these joints. Prominent Herbeden's nodes noted throughout DIPs Wrists: ?Full range of motion at the wrists without pain. ?No tenderness to palpation or synovitis noted to the wrists. Elbows: Full range of motion without pain. No tenderness, weakness, swelling, increased warmth or erythema. Shoulders: Full range of active range of motion without pain. No tenderness, weakness, swelling, increased warmth or erythema. Hips: Full range of motion without pain. Hip bursa: No tenderness to palpation Knees: ?Full range of motion. ?No tenderness, swelling, increased warmth or erythema.?No effusion or crepitations Ankles: Full range of motion. ?No tenderness, swelling, increased warmth or erythema.? Feet: ?Negative squeeze test. ?No tenderness to palpation or swelling of the MTPs. Tender points:?No tenderness to palpation of the bilateral trapezius, supraspinatus, greater trochanters, anterior costochondral junctions, bilateral gluteal areas, bilateral suboccipital muscle insertions Modified Shober's test: 5 --> 8cm SKIN Skin intact without rashes. Results Reviewed Results Reviewed: Laboratory Tests 02/22/24 08/26/24 09:12 13:30 WBC 5.5 RBC 4.69 Hgb 15.5 Hct 45.4 Plt Count 139 L ESR 3 Sodium 141 Potassium 5.2 H D Chloride 106 Carbon Dioxide 29 BUN 13 Creatinine 0.85 AST 29 ALT 37 Alkaline Phosphatase 74 C-Reactive Protein 0.19 Laboratory Tests 02/12/24 13:50 HLA-B27 Negative XR SI joints/T Spine/L spine FINDINGS: CERVICAL SPINE: The cervical spine is visualized to the level of C6-C7 on the lateral view. Loss of the usual cervical spine lordosis which may be due to positioning or muscle spasm. Vertebral body heights are maintained. Lateral masses of C1 are well aligned on C2. Visualized portion of the dens is intact. Multilevel anterior flowing syndesmophytes with partial ankylosis of the anterior aspects of the C4-C5 vertebral bodies. Multilevel facet arthropathy. Mild multilevel neural foraminal narrowing on the right and moderate to severe multilevel neural foraminal narrowing on the left worst at C3-C4 and C5-C6. No prevertebral soft tissue swelling. THORACIC SPINE: Vertebral body heights are maintained. Alignment is maintained. Moderate multilevel degenerative disease with loss of disc space height. Multilevel anterior syndesmophytes and linear ossification along the central spine suggesting interspinous ligament ossification compatible with history of ankylosing spondylitis. Paravertebral soft tissues are unremarkable. LUMBAR SPINE: 5 nonrib-bearing lumbar-type vertebral bodies. Vertebral body heights are maintained. Grade 1 retrolisthesis of L4 on L5 and grade 1 anterolisthesis of L5 on S1, with question of possible pars defects at L5 though difficult to confirm on the oblique radiographs. Moderate multilevel degenerative disc disease with loss of disc space height and multilevel anterior disc osteophyte complexes suggesting diffuse idiopathic skeletal hyperostosis. Atherosclerosis of the abdominal aorta. Right upper quadrant cholecystectomy clips. SI JOINTS: Partial ankylosis of the right sacroiliac joint with suspected periarticular erosions. Left sacroiliac joint space is maintained. Mild osteoarthritis of the hips. Sacral arcuate lines are intact without appreciable sacral fracture. Soft tissues are unremarkable. IMPRESSION: CERVICAL SPINE: Multilevel anterior flowing syndesmophytes with partial ankylosis of the anterior aspects of the C4-C5 vertebral bodies, which can be seen in the setting of ankylosing spondylitis. Multilevel facet arthropathy resulting in mild multilevel neural foraminal narrowing on the right and moderate to severe multilevel neural foraminal narrowing on the left were stat C3-C4 and C5-C6. THORACIC SPINE: Moderate multilevel degenerative disease. Multilevel anterior syndesmophytes and linear ossification along the central spine suggesting interspinous ligament ossification compatible with history of ankylosing spondylitis. LUMBAR SPINE: Grade 1 retrolisthesis of L4 on L5 and grade 1 anterolisthesis of L5 on S1, with question of possible pars defects at L5 though difficult to confirm on the oblique radiographs. Moderate multilevel degenerative disc disease and multilevel anterior disc osteophyte complexes suggesting diffuse idiopathic skeletal hyperostosis. SI JOINTS: Partial ankylosis of the right sacroiliac joint with suspected periarticular erosions. Left sacroiliac joint space is maintained. Mild osteoarthritis of the hips Assessment & Plan Assessment & Plan (1) Syndesmophyte: Comment: thoracic compression of the esophagus 11/25/2023Small anterior cervical web at the level C5. This is unlikely contributing to the patient's symptoms. 2. High-grade extrinsic compression upon the posterior wall of the upper esophagus secondary to a large syndesmophyte arising ventrally from T1-T2. Based on his recent CT scan in June 2023, this appears to be causing significant mass effect upon the esophagus at this level. Review this CT of the chest 06/21/2023 demonstrates bony findings pathognomonic of ankylosing spondylitis. 3. Esophageal dysmotility. 4. Mild to moderate narrowing of the GE junction above the hiatal hernia. This may represent achalasia, or a benign stricture. Recommend correlation with EGD. 5. Small type I hiatal hernia. 6. Multiple foci of contrast pooling in the fundus and body of the stomach that may represent small superficial aphthous ulcers. 7. 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 At C3, there is mild mass effect upon the hypopharynx, likely clinically insignificant. Code(s): M24.28 - Disorder of ligament, vertebrae Category: Medical Plan: #Syndesmophytes on imaging Patient is a 79-year-old male with polyarticular osteoarthritis here to follow up for imaging findings of flowing syndesmophytes. Given his history of significant osteoarthritis I think his syndesmophytes maybe related to DISH rather than ankylosing spondylitis, especially since he does not have any back pain. His inflammatory markers and his HLA B27 are negative which also leads me to think that his syndesmophytes may be related to DISH rather than ankylosing spondylitis. Reached out to radiology however the x-rays were read prior to our current contracted Radiology group. I will try to reach out to the chief of Radiology to see if they will review the x-rays with me. If not I think we will need to get an MRI of his pelvis to see if there is any active disease. Given the fact that he does not have any pain we will have to treat him with an anti TNF biologic to prevent further issues if at the end of the day we determined that his x-ray findings are related to ankylosing spondylitis. Plan - Follow up with radiology - RTC after discussion with radiology Plan I spent 42 minutes reviewing the record and labs, taking a history, examining the patient, discussing the treatment plan, contacting radiology and documenting in the medical record Coding Level of Care Code Est Pt Level 5 (74224) Diagnoses Syndesmophyte M24.28
--- OUTSIDE RECORDS SUMMARY | 2024-12-02 13:43 | XMS_ITS ---
Author Organization [facility] Address [address] [place] [address] Care Team Providers Care [place] Name Role Phone Adebayo Plunkett MD Primary Care Provider Marcin Leon [phone] Allergies No Known Allergies REASON FOR VISIT [...] Status Risk Notes Problem Barium swallow abnormal (490933455) Abnormal barium swallow (R93.3) Active confirmed Problem Colon cancer screening (786377368) Colon cancer screening (Z12.11) Active confirmed Problem Chronic cough (11716108) Chronic cough (R05.3) Active confirmed Problem Abnormal findings diagnostic imaging of liver and biliary tract (631730489) Abnormal CT of liver (R93.2) Active confirmed Vital Signs Blood pressure systolic 00 mm Hg 01/28/20 24 Blood pressure diastolic 00 mm Hg 024 Height 5 ft 6 in in 01/28/2024 Weight 236 lbs 01/28/2024 BMI 38.09 kg/m2 01/28/2024 Encounters Encounter Location Date Provider Diagnosis [facility] [address] [place] [address] 01/28/2024 Marcin Jones Abnormal barium swallow R93.3 [...] Notes * EDMUNDO BOYDDOB:1945 (78 yo M)Acc No.[id number]:01/28/2024 Progress Notes Patient:?EDMUNDO BOYD Provider:?Marcin Jones MD :1945???Age:78 Y???Sex:Male Aarno e:01/28/2024 Address:[address] [place], [place] [id number] Pcp:Adebayo Plunkett MD Subjective: * Chief Complaints: [...] W&WO CONTRAST* * Procedure Codes:?1036F TOBAC CO [id number] BP SCR NOT PRFRM REC REASON NOS * Preventive Medicine:? ??Counseling:?Care goal follow-up plan:?Above Normal BMI Follow-up?Giving encouragement to exercise,?BMI management provided?Yes.? ??Screenings:?Fall Risk Screening?Fall Risk Assessment:?No falls in the past year.? * Follow Up:?prn * * Sign off status: Completed true * Provider:?Marcin Jones MD Date:? 024 Generated for Francisco J aponte/Evaristo/eTransmitting on:?12/02/2024 01:42 PM EDT History and Physical Notes * [...] of having worked in a paper mill. He otherwise feels well in general and [...]
== END 2024-12-02 14:15 | disposition home or self-care (01) ==
LOC: HO.RHE 12:59
PROVIDERS: PCP Internal Medicine; Visit Provider Student in an Organized Health Care Education/Training Program
DX: M24.28 Disorder of ligament, vertebrae (principal)
CPT/HCPCS: 99215

== ENCOUNTER → 2024-12-02 12:58 | Outpatient (BNVA) | payer MEDICARE, SELFPAY | PROVIDERS: PCP Internal Medicine; Visit Provider Student in an Organized Health Care Education/Training Program | DX: M24.28 Disorder of ligament, vertebrae (principal); M15.9 Polyosteoarthritis, unspecified; E78.5 Hyperlipidemia, unspecified; K21.9 Gastro-esophageal reflux disease without esophagitis | CPT/HCPCS: 99212 ==

== ENCOUNTER 2024-12-28 08:46 | Outpatient (AMB) | payer MEDICARE, SELFPAY ==
--- NOTE | 2024-12-28 08:53 | A.OFFPC_ITS ---
Vital Signs 12/28/24 08:54 Height 5 ft 6 in Weight 234 lb 2 oz BMI 37.8 BP 128/76 Blood Pressure Location Lt brachial Position Sitting Pulse 78 Pulse Source Pulse Oximeter Temp 97.1 F Temp Source Temporal Artery Scan Pulse Oximetry (%) 97 Oxygen Delivery Method Room Air Intake Visit Reasons: Annual Exam Allergies No Known Allergies Allergy (Verified 12/28/24 08:56) Medication List - Last Reconciled 12/28/24 by Adebayo Plunkett MD aspirin 81 mg PO DAILY atenolol 50 mg PO DAILY 90 days multivitamin 1 tab PO DAILY naproxen sodium (Aleve) 220 mg PO DAILY PRN omega 2-jpl-lev-fish oil 1,000 (120-180) mg (Fish Oil) 1 cap PO DAILY rosuvastatin 5 mg PO DAILY Tobacco use date assessed: 12/28/24 Fall risk assessment: No Falls in past year Last assessed Fall Risk: 12/28/24 Dental Screening Dental Screen Date: 12/28/24 Did you have a dental visit in the last 12 months?: Yes Did you have a dental problem in the last 6 months where you did not have access to dental care?: No Was dental information given to patient?: Patient has dentist [facility] Medical History Chronic cough Colon cancer screening Dysphagia Arthritis Knee buckling Asthmatic bronchitis Cough Impaired glucose tolerance Annual physical exam Hypercholesterolemia Thrombocytopenia Vitamin D deficiency Obesity (BMI 30-39.9) Hypertension Surgical History H/O colonoscopy History of cholecystectomy History of inguinal hernia repair History of excision of pilonidal cyst Family History Father Cancer Liver cancer Mother No problems noted. Sister Breast cancer Son In good health Social History Housing: House Alcohol intake: current Alcohol intake frequency: does not drink Alcohol type: beer Comment: once a week 1 beer Patient Tobacco Use Status: Former Tobacco user Tobacco use type: Cigarette Years Smoked: 34 years old stopped e-Cigarette/Vaping Use: Never Used Second Hand Smoke Exposure: No service: No Current occupational status: retired Current occupation: rt hand Cognitive needs: No Hearing needs: No Vision needs: Yes Questionnaire PHQ-9 Over the last 2 weeks, how often have you been bothered by any of the following problems? 1. Little interest or pleasure in doing things: not at all 2. Feeling down, depressed, or hopeless: not at all 3. Trouble falling or staying asleep, or sleeping too much: not at all 4. Feeling tired or having little energy: several days 5. Poor appetite or overeating: not at all 6. Feeling bad about yourself - or that you are a failure or have let yourself or your family down: not at all 7. Trouble concentrating on things, such as reading the newspaper or watching television: not at all 8. Moving or speaking so slowly that other people could have noticed. Or the opposite - being so fidgety or restless that you have been moving around a lot more than usual: not at all 9. Thoughts that you would be better off or of hurting yourself in some way: not at all Total score: 1 Depression Screening Interpretation: Positive Depression Screening Done: Yes Source: Developed by Drs. Marcin Waters, Ekaterina Pantoja, Alfie Colorado and colleagues, with an educational sushil from [employer]. Thrive Questionnaire Date Thrive assessed: 12/28/24 I am a: Patient What is your living situation today?: I have a steady place to live Within the past 12 months, did the food you bought not last and you didn't have the money to get more?: I choose not to answer this question Within the past 12 months, did you worry whether your food would run out before you got money to buy more?: Never true Do you have trouble paying for medicines?: No Do you have trouble getting transportation to medical appointments?: No Do you have trouble paying your heating and electricity bill?: No Do you have trouble taking care of your child, family member or friend?: No Do you have trouble with day-to-day activities such as bathing, preparing meals, shopping, managing finances, etc.?: No Are you currently unemployed and looking for a job?: I choose not to answer this question Are you interested in more education?: No Please select the resources that you would like help with: None Currently or been in a relationship where the following occur: No concerns reported THRIVE Score: 0 AUDIT C Alcohol Use Questionnaire (AUDIT-C) 1. How often do you have a drink containing alcohol?: 2-4 times a month 2. How many drinks containing alcohol do you have on a typical day when you are drinking?: 1 or 2 3. How often do you have six or more drinks on one occasion?: Never Total Score: 2 ALEIDA-7 AMB Questionnaire ALEIDA-7 Date ALEIDA - 7 assessed: 12/28/24 Feeling nervous, anxious, or on edge: 0 = Not at all Not being able to stop or control worryin = Not at all Worrying too much about different things: 0 = Not at all Trouble relaxin = Not at all Being so restless that it is hard to sit still: 0 = Not at all Becoming easily annoyed or irritable: 0 = Not at all Feeling afraid as if something awful might happen: 0 = Not at all Total ALEIDA-7 score (0-4 normal; 5-9 mild; 10-14 moderate; 15-21 severe): 0 Source: Developed by Drs. Marcin Waters, Ekaterina Pantoja, Alfie Colorado and colleagues, with an educational sushil from [employer]. Review of Systems Const Denies poor appetite and Denies weakness Eyes Denies no additional complaints ENT Reports Normal hearing present, Denies dizziness, Denies nasal congestion, Denies tinnitus and Denies sore throat Card Denies chest pain, Denies syncope, Denies rapid heart rate and Denies dyspnea Resp Denies cough and Denies dyspnea GI Denies change in stool character, Reports constipation, Denies diarrhea, Denies nausea and Denies vomiting Denies dysuria and Denies urinary frequency Neuro Reports Normal hearing present, Denies confusion, Denies dizziness, Denies syncope and Denies weakness Psych Denies confusion Physical exam (Primary Care) Vital Signs: Last Vital Signs Temp 97.1 F 12/28/24 08:54 Pulse 78 12/28/24 08:54 BP 128/76 12/28/24 08:54 Pulse Ox 97 12/28/24 08:54 Oxygen Delivery Method Room Air 12/28/24 08:54 BMI result Body Mass Index 37.8 Tobacco/Smoking Status: Tobacco use Status Tobacco use date assessed 12/28/24 12/28/24 08:57 Patient Tobacco Use Status Former Tobacco user 12/28/24 08:57 Tobacco use type Cigarette 12/28/24 08:57 e-Cigarette/Vaping Use Never Used 12/28/24 08:57 PHQ-9: PHQ-9 Score PHQ-9: Total score 1 12/28/24 08:57 Depression Screening Interpretation: Positive Thrive Assessment: Date of Thrive Assessment Date Thrive assessed 12/28/24 12/28/24 08:57 Currently or been in a relationship where the following occur: No concerns reported Const General: No confusion Orientation/consciousness: No confusion HENMT Head: Yes normocephalic Ears: external ears normal and TM's normal bilaterally Face and sinus: Yes normal facial exam Mouth: moist mucous membranes Throat: Yes tonsils normal Eyes Conjunctivae: conjunctivae normal Pupils: Equal, round and reactive pupils present and Pupil accommodation reflex normal Direct Ophthalmoscopy: normal light reflex Neck Neck: No lymphadenopathy Thyroid: Thyroid normal Chest Chest palpation & inspection: normal inspection of the chest Resp Effort & Inspection: normal respiratory effort and no audible wheezes Auscultation: clear to auscultation bilaterally, no crackles, no wheezes and lung sounds not diminished Cardio Rate: regular rate Rhythm: regular rhythm Peripheral pulses: radial pulses present and dorsalis pedis present GI Other: guaiac negative prostate N Palpation (GI): no masses Auscultation: normal bowel sounds and normoactive bowel sounds Rectal Exam - Male: Yes deferred Male General Exam: Yes normal external exam Skin General skin exam: no rashes or lesions noted Rashes: no rashes Neuro General: No confusion Cranial nerves: Yes Equal, round and reactive pupils present and Yes Normal hearing present Cognition (Neuro): normal cognition Gait exam (Neuro): Normal gait present Motor exam (neuro): 5/5 motor strength present throughout Deep tendon reflexes (DTR's): Right brachioradialis reflex intensity grade: 2+, Left brachioradialis reflex intensity grade: 2+, Right patellar reflex intensity grade: 2+ and Left patellar reflex intensity grade: 2+ Extrem Other: interdigital whitish skin with peedling General: No edema Coding Level of Care Code Est Pt Prev Care >65y(93574) Diagnoses Annual physical exam Z00.00 Essential hypertension I10 Hypertension type: essential hypertension Coronary artery disease I25.10 Hypercholesterolemia E78.00 Impaired glucose tolerance R73.02 Obesity (BMI 30-39.9) E66.9 GERD (gastroesophageal reflux disease) K21.9 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 (2) Hypertension: Code(s): I10 - Essential (primary) hypertension Category: Medical Qualifiers: Hypertension type: essential hypertension Qualified Code(s): I10 - Essential (primary) hypertension Plan: Continue with blood pressure medication. Decrease salt intake and exercise on atenolol 50 mg once a day (3) Coronary artery disease: Code(s): I25.10 - Atherosclerotic heart disease of [place] coronary artery without angina pectoris Category: Medical Plan: Control the cholesterol, weight, blood pressure patient presently on aspirin 81 mg once a day (4) Hypercholesterolemia: Code(s): E78.00 - Pure hypercholesterolemia, unspecified Category: Medical Plan: Avoid fried foods, chicken skin, eggs, butter margarine, pastries and meat. Be it pork or beef they have a lot of cholesterol LDL goal of less than 70 and triglyceride of less than 150. On rosuvastatin and the February planned blood work repeat (5) Impaired glucose tolerance: Code(s): R73.02 - Impaired glucose tolerance (oral) Category: Medical Plan: Decrease the amount of carbohydrate intake, pasta, bread, rice and potatoes are all sugar and that is aside from all the sweet stuff, remember that fruits are good but they are Sweet also. (6) Obesity (BMI 30-39.9): Code(s): E66.9 - Obesity, unspecified Category: Medical Plan: Diet and exercise (7) GERD (gastroesophageal reflux disease): Code(s): K21.9 - Gastro-esophageal reflux disease without esophagitis Category: Medical Plan: Avoid the foods that causes that usually spicy foods, tomato products, juices, coffee, soda and foods that your sensitive to. After eating do not lie down, allow 3-4 hours before in lie down. And keep the head of bed above 30 degrees to avoid the acid from going up. (8) Syndesmophyte: Comment: thoracic compression of the esophagus 11/25/2023Small anterior cervical web at the level C5. This is unlikely contributing to the patient's symptoms. 2. High-grade extrinsic compression upon the posterior wall of the upper esophagus secondary to a large syndesmophyte arising ventrally from T1-T2. Based on his recent CT scan in June 2023, this appears to be causing significant mass effect upon the esophagus at this level. Review this CT of the chest 06/21/2023 demonstrates bony findings pathognomonic of ankylosing spondylitis. 3. Esophageal dysmotility. 4. Mild to moderate narrowing of the GE junction above the hiatal hernia. This may represent achalasia, or a benign stricture. Recommend correlation with EGD. 5. Small type I hiatal hernia. 6. Multiple foci of contrast pooling in the fundus and body of the stomach that may represent small superficial aphthous ulcers. 7. 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 At C3, there is mild mass effect upon the hypopharynx, likely clinically insignificant. Code(s): M24.28 - Disorder of ligament, vertebrae Category: Medical Plan: Patient has been seen by Rheumatology in planned MRI and treat accordingly (9) Pulmonary nodules: Comment: June 2024 CT scan Code(s): R91.8 - Other nonspecific abnormal finding of lung field Category: Medical Plan: Continuing to monitor (10) Plantar fasciitis of right foot: Code(s): M72.2 - Plantar fascial fibromatosis Category: Medical (11) Mitral regurgitation: Comment: 2020 Code(s): I34.0 - Nonrheumatic mitral (valve) insufficiency Category: Medical (12) Tinea pedis: Code(s): B35.3 - Tinea pedis Category: Medical Plan History of Present Illness The patient is a 79-year-old male presenting for a physical examination and management of chronic conditions. The patient has a history of hypertension, hypercholesterolemia, impaired glucose tolerance, and gastroesophageal reflux disease (GERD). He also has coronary artery disease and was last seen in November 2024. In June 2024, a CT scan revealed pulmonary nodules, and he was seen by rheumatology in November 2024 due to an x-ray showing ankylosing spondylitis. The patient was advised to get an MRI of the pelvis to check for active disease, with a plan to treat with anti-TNF biologics if necessary. The patient reports a recent issue with plantar fasciitis, experiencing heel pain for about two weeks, which is improving. He has been advised on conservative measures such as using gel insoles and performing specific exercises. A fungal infection was noted between the toes, and the patient was instructed to use antifungal cream and powder. The patient also has a history of mitral valve regurgitation, with a heart murmur detected during the examination. Health Maintenance - Colonoscopy last performed in May 2024 - Advised to maintain a healthy weight through diet and exercise - Recommended to use antifungal cream and powder for foot infection - Advised to consider shingles vaccination Social History - Alcohol: Occasionally consumes beer, particularly after golfing - Tobacco: Quit smoking at age 34 - Exercise: Limited physical activity, primarily golfing - Diet: Considering reducing meal portions to manage weight Review of Systems - General: Denies fever, dizziness, or nausea - Cardiovascular: Denies chest pain, reports occasional heart murmur - Respiratory: Reports occasional cough with phlegm, denies shortness of breath - Gastrointestinal: Denies heartburn, reports good bowel movements - Genitourinary: Denies urinary issues, reports waking once at night to urinate - Musculoskeletal: Reports heel pain, improving - Dermatological: Reports fungal infection between toes Physical Exam General: Cooperative, healthy appearing, comfortable, no acute distress, well developed, but noted to be obese. Orientation: Patient oriented x3 Limitations: No limitations Head: Normal to inspection Ears: Hearing grossly normal bilaterally, but noted to have a little more ear wax on one side. Nose: Normal external nose present Face and sinus: Normal facial exam Eyes: Appearance normal, both eyes and all related structures. Recent eye exam earlier this year with new glasses, no cataracts noted. Neck: Normal visual inspection and Yes full ROM Respiratory: Normal respiratory effort and able to speak in complete sentences. Clear to auscultation bilaterally. Occasional cough noted, especially when lying down or in the morning, with phlegm production. Cardiovascular: Regular rate and rhythm. Normal S1 and S2. Murmur noted, likely due to mitral valve regurgitation, previously identified in 2020. GI: Normal to inspection. Soft to palpation and nontender Skin: No rashes or lesions noted, but fungal infection noted between toes. Neuro: Patient oriented x3 Extremities: Normal to inspection, but noted to have some swelling and fungal infection between toes. Painful heel likely due to plantar fasciitis, improving with conservative measures. Results - Labs: Normal blood count with mild thrombocytopenia, blood sugar 108 mg/dL, hemoglobin A1c 5.7%, LDL 96 mg/dL - Imaging: CT scan in June 2024 showed pulmonary nodules - Imaging: X-ray showed ankylosing spondylitis Plan The patient will continue current management for hypertension and hypercholesterolemia, including atenolol and rosuvastatin, with a goal to maintain LDL below 70 mg/dL. For impaired glucose tolerance, dietary modifications and increased physical activity are recommended to prevent progression to diabetes. The patient is advised to use antifungal cream and powder for the fungal infection between the toes, and to follow up if symptoms persist. An MRI of the pelvis is planned to assess for active ankylosing sp ondylitis, with potential treatment using anti-TNF biologics if indicated. The patient is encouraged to maintain a healthy weight through diet and exercise, and to consider reducing meal portions as a weight management strategy. A follow-up echocardiogram is ordered to evaluate the mitral valve regurgitation, and the patient is advised to monitor for any new symptoms. Patient was informed and verbally consented to the use of an ambient scribe for clinic note documentation during this visit. Discussion Notes During the visit, I discussed the management of hypertension and hypercholesterolemia with the patient, emphasizing the importance of maintaining LDL levels below 70 mg/dL. We reviewed the need for dietary modifications and increased physical activity to manage impaired glucose tolerance and prevent diabetes progression. I advised the patient on the use of antifungal treatments for the foot infection and discussed the plan for an MRI to assess ankylosing spondylitis, with potential treatment options including anti-TNF biologics. We also talked about the importance of weight management and the potential benefits of reducing meal portions. Lastly, I ordered a follow-up echocardiogram to monitor the mitral valve regurgitation and advised the patient to report any new symptoms. Patient Instructions - Continue taking atenolol and rosuvastatin as prescribed. - Follow a healthy diet and increase physical activity to manage blood sugar levels. - Use antifungal cream and powder on feet as directed. - Schedule and complete MRI of the pelvis as advised. - Monitor weight and consider reducing meal portions. - Report any new symptoms related to heart murmur or other conditions. Orders: Orders CA echo transthoracic complete Today I34.0 - Nonrheumatic mitral (valve) insufficiency
[2024-12-28 08:54] VITALS: BP 128/76; PULSE 78; TEMP 36.2; O2SAT 97; BMI 37.8
--- OUTSIDE RECORDS SUMMARY | 2024-12-28 09:11 | XMS_ITS | Patient Health Record ---
Author Organization [facility] Address [address] [place] [address] Care Team Providers Care Lime Hide Inspector Name Role Phone Adebayo Plunkett MD Primary Care Provider Marcin Leon [phone] Allergies No Known Allergies Results Component Value Reference Range Notes Complete Blood Count Auto Di ff Reviewed date:02/22/2024 01:21:11 PM Interpretation: Performing Lab:[facility], [address] [place] [phone] Notes/Report: White Blood Count 4.7 4.8-10.8 X10*3/uL [...] te Reviewed date:02/22/2024 01:22:16 PM Interpretation: Performing Lab:[facility], [address] [place] [phone] Notes/Report: Erythrocyte Sedimentation Rate 3 0-15 MM/HR Patients with polycythemia and many hemoglobin abnormalities may have depressed sed rates whereas patients with anemia may have elevated sed rates. Comprehensive Met. Panel Reviewed date:02/22/2024 01:22:44 PM Interpretation: Performing Lab:[facility], [address] [place] [phone] Notes/Report: Sodium 141 135-145 mmol/L Potassium 4.3 3.3-5.1 mmol/L Chloride 107 96-108 mmol/L Carbon Dioxide 26 22-29 mmol/L Anion Gap 12 12-20 Blood Urea Nitrogen 12 9-16 mg/dL Creatinine 0.94 0.5-1.4 mg/dL Estimated Glomerular Filt Rate > 60 NOTE: For -Congolese individuals, multiply the result by 1.210. Chronic [...] Protein Reviewed date:02/22/2024 01:22:52 PM Interpretation: Performing Lab:[facility], [address] [place] [phone] Notes/Report: C Reactive Protein 0.19 < or = 0.50 mg/dL Lipid Panel Reviewed date:02/22/2024 01:23:00 PM Interpretation: Performing Lab:[facility], [address] [place] [phone] Notes/Report: Triglycerides 163 <150 mg/dL Desirable Triglyceride: [...] Folate Reviewed date:02/22/2024 01:43:39 PM Interpretation: Performing Lab:[facility], [address] [place] [phone] Notes/Report: Vitamin B12 521 200-900 pg/mL NORMAL 200-900 PG/ML INDETERMINATE 160-199 PG/ML DEFICIENT < 160 PG/ML Folate 12.9 > or = 4.0 ng/mL Reference Values: > or = 4.0 ng/mL < 4.0 ng/mL suggests folate deficiency Methotrexate, aminopterin and folinic acid (leucovorin) are chemotherapeutic agents whose molecular structures are similar to folate; therefore, the Pizza Driver folate assay cannot be used for patients using these drugs. Free T4 (Free Thyroxine) Reviewed date:02/22/2024 01:23:08 PM Interpretation: Performing Lab:[facility], [address] [place] [phone] Notes/Report: Free T4 (Free Thyroxine) 1.03 0.71-1.85 ng/dL Thyroid Stimulating Hormone Reviewed date:02/22/2024 01:23:28 PM Interpretation: Performing Lab:[facility], [address] [place] [phone] Notes/Report: Thyroid Stimulating Hormone 0.88 0.32-4.0 uIU/ mL TSH 3rd Generation ([facility]) Hemoglobin A1c Reviewed date:02/22/2024 01:22:07 PM Interpretation: Performing Lab:[facility], [address] [place] [phone] Notes/Report: Hemoglobin A1c % 5.7 <6.0 % [...] average glucose, using the formula of the [id number] Average Glucose study (ADAG), Diabetes Care, Vol.31,#8, Feb. 2007 Pathology (Not yet reviewed by provider) Interpretation: Performing Lab:[facility], [address] [place] [phone] Notes/Report: Reason For Referral No Information Medications Medication [...] Status Risk Notes Problem Colon cancer screening (940793811) Colon cancer screening (Z12.11) Active confirmed Problem Diverticular disease of colon (564455544) Diverticulosis of large intestine without perforation or abscess without bleeding (K57.30) Active confirmed Problem Gastroesophageal reflux disease (511460125) Gastroesophageal reflux disease (K21.9) Active confirmed Problem Abnormal findings diagnostic imaging of liver and biliary tract (472848613) Abnormal CT of liver (R93.2) Active confirmed Problem Barium swallow abnormal (026140877) Abnormal barium swallow (R93.3) Active confirmed Problem Chronic cough (52535389) Chronic cough (R05.3) Active confirmed Vital Signs Blood pressure diastolic 00 mm Hg 01/28/2024 Height 5 ft 6 in in 01/28/2024 Blood pressure systolic 00 mm Hg 01/28/2024 Weight 236 lbs 01/28/2024 BMI 38.09 kg/m2 01/28/2024 Encounters Encounter Location Date Provider Diagnosis [facility] [place] [address] [place] [phone] 05/20/2024 Marcin Jones Colon cancer screeni ng Z12.11 ; Colon polyps K63.5 ; Diverticulosis of large intestine without perforation or abscess without bleeding K57.30 ; Other hemorrhoids K64.8 ; Gastroesophageal reflux disease K21.9 ; Hiatal hernia K44.9 ; Abn findings-GI tract R93.3 and Chronic cough R05.3 [facility] [address] [place] [phone] 01/28/2024 Marcin Jones Abnormal barium swal low R93.3 ; Colon cancer screening Z12.11 ; Chronic cough R05.[address] of liver R93.2 [facility] [address] [place] [phone] 02/14/2024 Marcin Jones Assessments Encounter Date Diagnosis [...] Insured Coverage Start Date Coverage End Date [facility] [address] [place] [address] [id number] DEB EDMUNDO Self - patient is the insured Medical (General) History Medical History History ICD Code Hypertension Denies [place],DM,CVA,Lung disease,renal dise ase 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
== END 2024-12-28 09:35 | disposition home or self-care (01) ==
LOC: HO.HMCH 08:47
PROVIDERS: PCP Internal Medicine; Visit Provider Internal Medicine
DX: Z00.00 Encounter for general adult medical examination without abnormal findings (principal); E66.9 Obesity, unspecified; I10 Essential (primary) hypertension; Z68.37 Body mass index [BMI] 37.0-37.9, adult; I25.10 Atherosclerotic heart disease of native coronary artery without angina pectoris; E78.00 Pure hypercholesterolemia, unspecified; R73.02 Impaired glucose tolerance (oral); K21.9 Gastro-esophageal reflux disease without esophagitis; M24.28 Disorder of ligament, vertebrae; R91.8 Other nonspecific abnormal finding of lung field; M72.2 Plantar fascial fibromatosis; I34.0 Nonrheumatic mitral (valve) insufficiency

== ENCOUNTER → 2024-12-28 08:46 | Outpatient (BNVA) | payer MEDICARE, SELFPAY | PROVIDERS: PCP Internal Medicine; Visit Provider Internal Medicine | DX: Z00.00 Encounter for general adult medical examination without abnormal findings (principal); I10 Essential (primary) hypertension; I25.10 Atherosclerotic heart disease of native coronary artery without angina pectoris; E78.00 Pure hypercholesterolemia, unspecified; R73.02 Impaired glucose tolerance (oral); E66.9 Obesity, unspecified; K21.9 Gastro-esophageal reflux disease without esophagitis; M24.28 Disorder of ligament, vertebrae; R91.8 Other nonspecific abnormal finding of lung field; M72.2 Plantar fascial fibromatosis; I34.0 Nonrheumatic mitral (valve) insufficiency; B35.3 Tinea pedis | CPT/HCPCS: 96127; 99397 ==

== ENCOUNTER → 2025-01-12 12:38 | Outpatient (REF) | payer MEDICARE, SELFPAY ==
--- NOTE | 2025-01-12 12:41 | CA_ITS ---
Transthoracic Echocardiogram Patient (Last, First, Middle): Edmundo Bullock J Gender: Male Date of : 1945 Age: 79 Procedure Date: 01/12/2025 Procedure Type: Transthoracic Echocardiogram Location: OP Height: 167.64 cm Weight: 106.14 kg BSA: 2.14 m2 Heart Rate: bpm BP: 128 / 76 mmHg Press Technician: NOEL Referring MD: Adebayo Plunkett MD Wax Ball Knock Out Worker: Juan Hwang MD Symptoms: I34.0 - Nonrheumatic mitral (valve) insufficiency Study Quality: Adequate ECG Rhythm: Sinus Conclusions: - 1. Normal LV ejection fraction of 60 65% with possible pseudonormal filling pattern 2. At least moderate mitral regurgitation she has eccentric impinging the leaflet, consider additional imaging 3. Mildly dilated ascending aorta at 3.7 cm 4. No gross pericardial effusion Findings Left Ventricle Normal left ventricular size, thickness, and systolic function. The visually estimated ejection fraction is between 60-65%. Spectral Doppler is indicative of a pseudonormal filling pattern. Right Ventricle Normal right ventricular cavity size and systolic function. Atria The left atrium is moderately dilated. There is no evidence of interatrial shunt. The right atrium is likely dilated. Aortic Valve There is mild calcification of the aortic valve. There is no aortic valve stenosis. There is no aortic valve regurgitation. Mitral Valve There is mild anterior and posterior mitral leaflet thickening. There is moderate mitral valve regurgitation. There is no mitral valve stenosis. Pulmonic Valve The pulmonic valve was not well visualized. Tricuspid Valve Likely normal tricuspid valve structure and function. Tricuspid regurgitation envelope is inadequate for calculation of right ventricular systolic pressure. Normal right atrial pressure. Great Vessels The pulmonary artery was not well visualized. There is mild dilatation of the ascending aorta measuring 3.70 cm. Venous The inferior vena cava is normal in size and collapses greater than 50% with inspiration. Pericardium/Pleural There is no evidence of pericardial effusion. Prior Study Comparison No significant change compared to prior study dated: 01/24/2021. Recommendations, Care & Conclusions Consider a MIRZA if clinically appropriate. Measurements 2D Linear Measurements IVSd: 1.09 0.6-0.9/0.6-1.0 cm LVIDd: 5.23 3.9-5.3/4.2-5.9 cm LVIDd Index: 2.44 2.4-3.2/2.2-3.1 cm/m2 LVIDs: 2.96 2.0-3.6 cm LVPWd: 0.76 0.7-1.1 cm LA Diam: 3.80 2.7-3.8/3.0-4.0 cm LAIDs Index: 1.78 1.5-2.3 cm/m2 LV Mass: 220.16 67-162/88-224 g LV Mass Index: 102.88 43-95/49-115 g/m2 LVOT Diam: 2.20 3.0+(-)1.3 cm 2D Systolic Function EF 4C: 61.60 >55% EF 2C: 56.90 >55% EF BiP: 61.50 >55% Mitral Valve MV Pk E: 1.11 MV PK A: 0.88 MV Decel Time: 250.00 E/A: 1.30 E'Lateral: 9.79 E'Medial: 7.07 E/E' Med: 15.70 E/E' Lat: 11.30 PHT: 73.00 MVA PHT: 3.01 Decel [place]: 4.44 Aortic Valve AoV Pk Oneil: 1.37 AoV Mn Oneil: 0.93 AoV VTI: 0.29 AoV Pk Grad: 8.00 Aov Mn Grad: 4.00 FABIOLA Cont.VTI: 3.07 LVOT LVOT Pk Oneil: 1.03 LVOT Mn Oneil: 0.59 LVOT VTI: 0.24 LVOT Pk Grad: 4.00 LVOT Mn Grad: 2.00 LVOT Diam: 2.20 LVOT Area: 3.80 Diastolic Function MV Pk E: 1.11 MV Pk A: 0.88 E/A: 1.30 E'Medial: 7.07 E/E' Med: 15.70 E' Laterial: 9.79 E/E' Lat: 11.30 Right Ventricle TAPSE (mm): 34.00 TVS' Oneil: 15.70 Tricuspid Valve RA Press: 3.00 Great Vessels Aorta Sinus of Valsalva: 3.68 2.0-3.[address] [place]: 2.88 1.7-3.4 cm Ao Asc: 3.70 2.1-3.4 cm Updated in Other Vendor System with Status of Final Juan Hwang MD electronically signed on 01/13/2025 8:21:48 AM with status of Final
--- OUTSIDE RECORDS SUMMARY | 2025-01-12 13:20 | XMS_ITS | Patient Health Record ---
Author Organization [facility] Address [address] [place] [phone] Care Team Providers Care Certified Emergency Vehicle Technician Name Role Phone Adebayo Plunkett MD Primary Care Provider Marcin Leon [phone] Allergies No Known Allergies Results Component Value Reference Range Notes Complete Blood Count Auto Di ff Reviewed date:02/22/2024 01:21:11 PM Interpretation: Performing Lab:[facility], [address] [place] [phone] Notes/Report: White Blood Count 4.7 4.8-10.8 X10*3/uL [...] te Reviewed date:02/22/2024 01:22:16 PM Interpretation: Performing Lab:[facility], [address] [place] [phone] Notes/Report: Erythrocyte Sedimentation Rate 3 0-15 MM/HR Patients with polycythemia and many hemoglobin abnormalities may have depressed sed rates whereas patients with anemia may have elevated sed rates. Comprehensive Met. Panel Reviewed date:02/22/2024 01:22:44 PM Interpretation: Performing Lab:[facility], [address] [place] [phone] Notes/Report: Sodium 141 135-145 mmol/L Potassium 4.3 3.3-5.1 mmol/L Chloride 107 96-108 mmol/L Carbon Dioxide 26 22-29 mmol/L Anion Gap 12 12-20 Blood Urea Nitrogen 12 9-16 mg/dL Creatinine 0.94 0.5-1.4 mg/dL Estimated Glomerular Filt Rate > 60 NOTE: For -Monegasque individuals, multiply the result by 1.210. Chronic [...] Protein Reviewed date:02/22/2024 01:22:52 PM Interpretation: Performing Lab:[facility], [address] [place] [phone] Notes/Report: C Reactive Protein 0.19 < or = 0.50 mg/dL Lipid Panel Reviewed date:02/22/2024 01:23:00 PM Interpretation: Performing Lab:[facility], [address] [place] [phone] Notes/Report: Triglycerides 163 <150 mg/dL Desirable Triglyceride: [...] Folate Reviewed date:02/22/2024 01:43:39 PM Interpretation: Performing Lab:[facility], [address] [place] [phone] Notes/Report: Vitamin B12 521 200-900 pg/mL NORMAL 200-900 PG/ML INDETERMINATE 160-199 PG/ML DEFICIENT < 160 PG/ML Folate 12.9 > or = 4.0 ng/mL Reference Values: > or = 4.0 ng/mL < 4.0 ng/mL suggests folate deficiency Methotrexate, aminopterin and folinic acid (leucovorin) are chemotherapeutic agents whose molecular structures are similar to folate; therefore, the Samples And Repairs Preparer folate assay cannot be used for patients using these drugs. Free T4 (Free Thyroxine) Reviewed date:02/22/2024 01:23:08 PM Interpretation: Performing Lab:[facility], [address] [place] [phone] Notes/Report: Free T4 (Free Thyroxine) 1.03 0.71-1.85 ng/dL Thyroid Stimulating Hormone Reviewed date:02/22/2024 01:23:28 PM Interpretation: Performing Lab:[facility], [address] [place] [phone] Notes/Report: Thyroid Stimulating Hormone 0.88 0.32-4.0 uIU/ mL TSH 3rd Generation ([facility]) Hemoglobin A1c Reviewed date:02/22/2024 01:22:07 PM Interpretation: Performing Lab:[facility], [address] [place] [phone] Notes/Report: Hemoglobin A1c % 5.7 <6.0 % [...] average glucose, using the formula of the [id number] Average Glucose study (ADAG), Diabetes Care, Vol.31,#8, Feb. 2007 Pathology (Not yet reviewed by provider) Interpretation: Performing Lab:[facility], [address] [place] [phone] Notes/Report: Reason For Referral No Information Medications [...] Status Risk Notes Problem Colon cancer screening (264027019) Colon cancer screening (Z12.11) Active confirmed Problem Diverticular disease of colon (909999613) Diverticulosis of large intestine without perforation or abscess without bleeding (K57.30) Active confirmed Problem Gastroesophageal reflux disease (004203201) Gastroesophageal reflux disease (K21.9) Active confirmed Problem Abnormal findings diagnostic imaging of liver and biliary tract (535935828) Abnormal CT of liver (R93.2) Active confirmed Problem Barium swallow abnormal (514115815) Abnormal barium swallow (R93.3) Active confirmed Problem Chronic cough (65478525) Chronic cough (R05.3) Active confirmed Vital Signs Blood pressure diastolic 00 mm Hg 01/28/2024 Height 5 ft 6 in in 01/28/2024 Blood pressure systolic 00 mm Hg 01/28/2024 Weight 236 lbs 01/28/2024 BMI 38.09 kg/m2 01/28/2024 Encounters Encounter Location Date Provider Diagnosis [facility] [place] [address] [place] [phone] 05/20/2024 Marcin Jones Colon cancer screeni ng Z12.11 ; Colon polyps K63.5 ; Diverticulosis of large intestine without perforation or abscess without bleeding K57.30 ; Other hemorrhoids K64.8 ; Gastroesophageal reflux disease K21.9 ; Hiatal hernia K44.9 ; Abn findings-GI tract R93.3 and Chronic cough R05.3 [facility] [address] [place] [phone] 01/28/2024 Marcin Jones Abnormal barium swal low R93.3 ; Colon cancer screening Z12.11 ; Chronic cough R05.[address] of liver R93.2 [facility] [address] [place] [phone] 02/14/2024 Marcin Jones Assessments Encounter Date Diagnosis [...] Insured Coverage Start Date Coverage End Date 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
== END ==
LOC: HO.CARD 12:38
PROVIDERS: PCP Internal Medicine; Visit Provider Internal Medicine
DX: I34.0 Nonrheumatic mitral (valve) insufficiency (principal)
CPT/HCPCS: 93306

== ENCOUNTER → 2025-01-12 12:41 | Outpatient (BNV) | payer MEDICARE, SELFPAY | PROVIDERS: PCP Internal Medicine; Visit Provider Internal Medicine Cardiovascular Disease | DX: I34.0 Nonrheumatic mitral (valve) insufficiency (principal) | CPT/HCPCS: 93306 ==

== ENCOUNTER 2025-03-15 08:06 | Outpatient (REF) | payer MEDICARE, SELFPAY ==
--- OUTSIDE RECORDS SUMMARY | 2024-05-20 04:40 | XMS_ITS ---
Author Organization [facility] Address [address] [place] [address] Care Team Providers Care Vp Product Name Role Phone Po Adebayo POLANCO Primary Care Provider Marcin Leon [phone] REASON FOR VISIT screening, abn barium swallow,chronic cough Problems Problem Type SNOMED Code ICD Code Onset Dates Problem Status W/U Status Risk Notes Problem Diverticular disease of colon (304470076) Diverticulosis of large intestine without perforation or abscess without bleeding (K57.30) Active confirmed Problem Gastroesophageal reflux disease (103354616) Gastroesophageal reflux disease (K21.9) Active confirmed Encounters Encounter Location Date Provider Diagnosis [facility] [place] [address] [place], [place] [phone] 05/20/2024 Marcin Jones Colon cancer screeni ng [...] Notes * SWAPNA BOYDDOB:1945 (79 yo M)Acc No.[id number]:05/20/2024 EGD and COL/MAC Patient: SWAPNA JAFFE Provider: Debbie Jones MD :1945 A ge:78 Y S ex:Male Date:05/20/2024 Address:[address] [place], [place] [phone] Pcp:Adebayo Plunkett MD Subjective: * Chief Complaints: [...] FLW-UP 10 YRS DOCD, Modifiers: 1P , 99990 UPPER GI ENDOSCOPY, BIOPSY * * The named appointment provid er may or may not be the originator of this progress note, and it is not deemed complete until electronically signed by the appointment provider. Sign off status: Pending * Provider: Debbie Jones MD Date: 07/20/2023 Generated for Francisco J aponte/Evaristo/eTransmitting on: 0 03/15/2025 08:48 AM EDT
--- OUTSIDE RECORDS SUMMARY | 2025-03-15 08:48 | XMS_ITS | Patient Health Record ---
Author Organization [facility] Address [address] [place] [address] Care Team Providers Care Warehouse Helper Name Role Phone Adebayo Plunkett MD Primary Care Provider Marcin Leon [phone] Allergies No Known Allergies Results Component Value Reference Range Notes Pathology (Not yet reviewed by provider) Interpretation: Performing Lab:[facility], [address] [place] [phone] Notes/Report: Reason For Referral No Information Medications [...] Status Risk Notes Problem Colon cancer screening (383223411) Colon cancer screening (Z12.11) Active confirmed Problem Diverticular disease of colon (884160670) Diverticulosis of large intestine without perforation or abscess without bleeding (K57.30) Active confirmed Problem Gastroesophageal reflux disease (370226679) Gastroesophageal reflux disease (K21.9) Active confirmed Problem Abnormal findings diagnostic imaging of liver and biliary tract (769621852) Abnormal CT of liver (R93.2) Active confirmed Problem Barium swallow abnormal (626596303) Abnormal barium swallow (R93.3) Active confirmed Problem Chronic cough (04187248) Chronic cough (R05.3) Active confirmed Encounters Encounter Location Date Provider Diagnosis [facility] [place] [address] [place] [phone] 05/20/2024 Marcin Jones Colon cancer screeni ng [...] Insured Coverage Start Date Coverage End Date [facility] [address] [place] [address] [phone] [id number] SWAPNA BOYD Self - patient is the insured Medical (General) History Medical History History ICD Code Hypertension Denies [place],DM,CVA,Lung disease,renal dise ase 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
[2025-03-15 09:29] LABS: Hemoglobin A1C 160.0817 umol/L; Total Hemoglobin (HGBA1C) 3833.8652 umol/L
[2025-03-15 09:55] LABS: Alanine Aminotransferase 22 U/L (0-40); Albumin Level 4.3 g/dL (3.5-5.0); Alkaline Phosphatase 69 U/L (39-117); Anion Gap 12 (12-20); Aspartate Amino Transferase 21 U/L (5-37); Blood Urea Nitrogen 13 mg/dL (9-16); Calcium 9.1 mg/dL (8.4-10.2); Carbon Dioxide 27 mmol/L (22-29); Chloride 105 mmol/L (96-108); Cholesterol 116 mg/dL (<200); Estimated Glomerular Filt Rate > 60; HDL Cholesterol 37 mg/dL (>40); Potassium 4.2 mmol/L (3.3-5.1); Sodium 140 mmol/L (135-145); Total Protein 6.7 g/dL (6.5-8.0); Triglycerides 101 mg/dL (<150)
== END 2025-03-15 08:07 | disposition home or self-care (01) ==
LOC: HO.LAB 08:06
PROVIDERS: PCP Internal Medicine; Visit Provider Internal Medicine
DX: E78.00 Pure hypercholesterolemia, unspecified (principal); Z13.1 Encounter for screening for diabetes mellitus
CPT/HCPCS: 36415; 80053; 80061; 83036

== ENCOUNTER 2025-03-17 12:50 | Outpatient (AMB) | payer MEDICARE, SELFPAY ==
--- OUTSIDE RECORDS SUMMARY | 2024-05-20 04:40 | XMS_ITS ---
Author Organization [facility] Address [address] [place] [address] Care Team Providers Care Seaman Name Role Phone Po Adebayo POLANCO Primary Care Provider Marcin Leon [phone] REASON FOR VISIT screening, abn barium swallow,chronic cough Problems Problem Type SNOMED Code ICD Code Onset Dates Problem Status W/U Status Risk Notes Problem Diverticular disease of colon (732971939) Diverticulosis of large intestine without perforation or abscess without bleeding (K57.30) Active confirmed Problem Gastroesophageal reflux disease (184509480) Gastroesophageal reflux disease (K21.9) Active confirmed Encounters Encounter Location Date Provider Diagnosis [facility] [place] Out[place] [address] [place], [place] [phone] 05/20/2024 Marcin Jones Colon cancer screeni ng [...] Notes * SWAPNA BOYDDOB:1945 (79 yo M)Acc No.[id number]:05/20/2024 EGD and COL/MAC Patient: SWAPNA JAFFE Provider: Debbie Jones MD :1945 A ge:78 Y S ex:Male Date:05/20/2024 Address:[address] [place], [place] [id number] Pcp:Adebayo Plunkett MD Subjective: * Chief Complaints: * 1 . Screening, abn barium swallow,chronic cough. * Medical History: Objective: * Vitals: Assessment: * Assessment: 1. C olon cancer [...] C hronic cough - R05.3 Plan: * Treatment: * Procedure Codes: 4 5385 LESION REMOVAL COLONOSCOPY, 0529F INTRVL 3+YRS PTS CLNSCP DOCD, 0528F RCMND FLW-UP 10 YRS DOCD, Modifiers: 1P , 34753 UPPER GI ENDOSCOPY, BIOPSY * * The named appointment provid er may or may not be the originator of this progress note, and it is not deemed complete until electronically signed by the appointment provider. Sign off status: Pending * Provider: Debbie Jones MD Date: 07/20/2023 Generated for Francisco J aponte/Evaristo/eTransmitting on: 0 03/17/2025 03:50 PM EDT
[2025-03-17 13:01] VITALS: BP 110/64; PULSE 78; TEMP 36.3; O2SAT 98; BMI 36.8
--- NOTE | 2025-03-17 13:01 | A.OFFPC_ITS ---
Vital Signs 03/17/25 13:01 Height 5 ft 6 in Weight 228 lb BMI 36.8 BP 110/64 Blood Pressure Location Lt brachial Position Sitting Pulse 78 Pulse Source Pulse Oximeter Temp 97.3 F Temp Source Temporal Artery Scan Pulse Oximetry (%) 98 Oxygen Delivery Method Room Air Intake Visit Reasons: 3mth f/u Allergies No Known Allergies Allergy (Verified 03/17/25 13:01) Medication List - Last Reconciled 03/17/25 by Adebayo Plunkett MD aspirin 81 mg PO DAILY atenolol 50 mg PO DAILY 90 days multivitamin 1 tab PO DAILY naproxen sodium (Aleve) 220 mg PO DAILY PRN omega 7-uds-jgn-fish oil 1,000 (120-180) mg (Fish Oil) 1 cap PO DAILY rosuvastatin 5 mg PO DAILY Tobacco use date assessed: 03/17/25 Fall risk assessment: No Falls in past year Last assessed Fall Risk: 03/17/25 Dental Screening Dental Screen Date: 12/28/24 Did you have a dental visit in the last 12 months?: Yes Did you have a dental problem in the last 6 months where you did not have access to dental care?: No Was dental information given to patient?: Patient has dentist [facility] Medical History Chronic cough Colon cancer screening Dysphagia Arthritis Knee buckling Asthmatic bronchitis Cough Impaired glucose tolerance Annual physical exam Hypercholesterolemia Thrombocytopenia Vitamin D deficiency Obesity (BMI 30-39.9) Hypertension Surgical History H/O colonoscopy History of cholecystectomy History of inguinal hernia repair History of excision of pilonidal cyst Family History Father Cancer Liver cancer Mother No problems noted. Sister Breast cancer Son In good health Social History Housing: House Alcohol intake: current Alcohol intake frequency: does not drink Alcohol type: beer Comment: once a week 1 beer Patient Tobacco Use Status: Former Tobacco user Tobacco use type: Cigarette Years Smoked: 34 years old stopped e-Cigarette/Vaping Use: Never Used Second Hand Smoke Exposure: No service: No Current occupational status: retired Current occupation: rt hand Cognitive needs: No Hearing needs: No Vision needs: Yes Questionnaire PHQ-9 Over the last 2 weeks, how often have you been bothered by any of the following problems? 1. Little interest or pleasure in doing things: not at all 2. Feeling down, depressed, or hopeless: not at all 3. Trouble falling or staying asleep, or sleeping too much: not at all 4. Feeling tired or having little energy: several days 5. Poor appetite or overeating: not at all 6. Feeling bad about yourself - or that you are a failure or have let yourself or your family down: not at all 7. Trouble concentrating on things, such as reading the newspaper or watching television: not at all 8. Moving or speaking so slowly that other people could have noticed. Or the opposite - being so fidgety or restless that you have been moving around a lot more than usual: not at all 9. Thoughts that you would be better off or of hurting yourself in some way: not at all Total score: 1 Depression Screening Interpretation: Positive Depression Screening Done: Yes Source: Developed by Drs. Marcin Waters, Ekaterina Pantoja, Alfie Colorado and colleagues, with an educational sushil from [employer]. Thrive Questionnaire Date Thrive assessed: 12/28/24 I am a: Patient What is your living situation today?: I have a steady place to live Within the past 12 months, did the food you bought not last and you didn't have the money to get more?: I choose not to answer this question Within the past 12 months, did you worry whether your food would run out before you got money to buy more?: Never true Do you have trouble paying for medicines?: No Do you have trouble getting transportation to medical appointments?: No Do you have trouble paying your heating and electricity bill?: No Do you have trouble taking care of your child, family member or friend?: No Do you have trouble with day-to-day activities such as bathing, preparing meals, shopping, managing finances, etc.?: No Are you currently unemployed and looking for a job?: I choose not to answer this question Are you interested in more education?: No Please select the resources that you would like help with: None Currently or been in a relationship where the following occur: No concerns reported THRIVE Score: 0 AUDIT C Alcohol Use Questionnaire (AUDIT-C) 1. How often do you have a drink containing alcohol?: 2-4 times a month 2. How many drinks containing alcohol do you have on a typical day when you are drinking?: 1 or 2 3. How often do you have six or more drinks on one occasion?: Never Total Score: 2 ALEIDA-7 AMB Questionnaire ALEIDA-7 Date ALEIDA - 7 assessed: 12/28/24 Feeling nervous, anxious, or on edge: 0 = Not at all Not being able to stop or control worryin = Not at all Worrying too much about different things: 0 = Not at all Trouble relaxin = Not at all Being so restless that it is hard to sit still: 0 = Not at all Becoming easily annoyed or irritable: 0 = Not at all Feeling afraid as if something awful might happen: 0 = Not at all Total ALEIDA-7 score (0-4 normal; 5-9 mild; 10-14 moderate; 15-21 severe): 0 Source: Developed by Drs. Marcin Waters, Ekaterina Pantoja, Alfie Colorado and colleagues, with an educational sushil from [employer]. Physical exam (Primary Care) Vital Signs: Last Vital Signs Temp 97.3 F 03/17/25 13:01 Pulse 78 03/17/25 13:01 BP 110/64 03/17/25 13:01 Pulse Ox 98 03/17/25 13:01 Oxygen Delivery Method Room Air 03/17/25 13:01 BMI result Body Mass Index 36.8 Tobacco/Smoking Status: Tobacco use Status Tobacco use date assessed 03/17/25 03/17/25 13:03 Patient Tobacco Use Status Former Tobacco user 03/17/25 13:03 Tobacco use type Cigarette 03/17/25 13:03 e-Cigarette/Vaping Use Never Used 03/17/25 13:03 PHQ-9: PHQ-9 Score PHQ-9: Total score 1 03/17/25 13:03 Depression Screening Interpretation: Positive Thrive Assessment: Date of Thrive Assessment Date Thrive assessed 12/28/24 03/17/25 13:03 Currently or been in a relationship where the following occur: No concerns reported Const General: alert; No acute distress Eyes Conjunctivae: conjunctivae normal Resp Auscultation: clear to auscultation bilaterally Cardio Rate: regular rate Rhythm: regular rhythm GI Inspection: Yes normal to inspection Extrem General: Yes normal to inspection and No edema Coding Level of Care Code Est Pt Level 4 (06520) Complex EM visit Add On G2211 Diagnoses Coronary artery disease I25.10 Hypercholesterolemia E78.00 Essential hypertension I10 Hypertension type: essential hypertension Impaired glucose tolerance R73.02 Obesity (BMI 30-39.9) E66.9 GERD (gastroesophageal reflux disease) K21.9 Assessment & Plan Assessment & Plan (1) Coronary artery disease: Code(s): I25.10 - Atherosclerotic heart disease of [place] coronary artery without angina pectoris Category: Medical Plan: Control the cholesterol, weight, blood pressure, continue with aspirin 81 mg once a day (2) Hypercholesterolemia: Code(s): E78.00 - Pure hypercholesterolemia, unspecified Category: Medical Plan: Avoid fried foods, chicken skin, eggs, butter margarine, pastries and meat. Be it pork or beef they have a lot of cholesterol LDL goal of less than 70 and triglyceride of less than 150 patient is taking rosuvastatin 5 mg once a day (3) Hypertension: Code(s): I10 - Essential (primary) hypertension Category: Medical Qualifiers: Hypertension type: essential hypertension Qualified Code(s): I10 - Essential (primary) hypertension Plan: Continue with blood pressure medication. Decrease salt intake and exercise on atenolol 50 mg once a day (4) Impaired glucose tolerance: Code(s): R73.02 - Impaired glucose tolerance (oral) Category: Medical Plan: Decrease the amount of carbohydrate intake, pasta, bread, rice and potatoes are all sugar and that is aside from all the sweet stuff, remember that fruits are good but they are Sweet also. (5) Obesity (BMI 30-39.9): Code(s): E66.9 - Obesity, unspecified Category: Medical Plan: Diet and exercise (6) GERD (gastroesophageal reflux disease): Code(s): K21.9 - Gastro-esophageal reflux disease without esophagitis Category: Medical Plan: Avoid the foods that causes that usually spicy foods, tomato products, juices, coffee, soda and foods that your sensitive to. After eating do not lie down, allow 3-4 hours before in lie down. And keep the head of bed above 30 degrees to avoid the acid from going up. Plan History of Present Illness The patient is a 79-year-old male presenting for a follow-up visit to manage chronic conditions and review recent diagnostic results. The patient has a history of obesity, hypertension, hypercholesterolemia, and impaired glucose tolerance. He has been experiencing weight loss over the past six months. The patient has coronary artery disease and underwent an echocardiogram in January 2025, which showed a normal left ventricular ejection fraction of 60 to 65% and moderate mitral regurgitation. The echocardiogram also revealed a mildly dilated ascending aorta. The patient's last blood work in August showed a normal blood count with mild thrombocytopenia. In March 2025, blood work indicated normal electrolytes, good renal function, elevated blood sugar at 109 mg/dL, and a hemoglobin A1c of 6.0%. Liver function tests were normal, and LDL cholesterol was 59 mg/dL. The patient has a history of a hiatal hernia with mild to moderate narrowing of the gastroesophageal junction observed in 2023. He reports a chronic cough with phlegm for two and a half years, which may be related to allergies or reflux. The patient is currently taking rosuvastatin, atenolol, and aspirin as part of his medication regimen. He has been advised to manage his blood sugar through diet and exercise. Preventative care measures include a colonoscopy performed in 2023 and vaccinations for shingles, pneumonia, flu, and COVID-19. Health Maintenance - Colonoscopy performed in 2023 - Vaccinations: shingles, pneumonia, flu, and COVID-19 - Diet and exercise advised for blood sugar management Social History - Exercise: Engages in walking as a form of physical activity - Nutrition: Reports reducing intake of pasta, bread, and sweets to manage blood sugar Review of Systems - Cardiovascular: Denies chest pain, reports regular heart rate - Respiratory: Reports chronic cough with phlegm for two and a half years, denies dyspnea - Gastrointestinal: Denies dysphagia, reports history of hiatal hernia - Endocrine: Reports elevated blood sugar levels Physical Exam - Cardiovascular: Regular rate and rhythm, presence of a murmur - Respiratory: Clear to auscultation bilaterally - Throat: No significant findings upon examination Results - Echocardiogram (January 2025): Normal left ventricular ejection fraction (60- 65%), moderate mitral regurgitation, mildly dilated ascending aorta - Blood work (August 2024): Normal blood count, mild thrombocytopenia - Blood work (March 2025): Normal electrolytes, good renal function, elevated blood sugar (109 mg/dL), hemoglobin A1c (6.0%), normal liver function, LDL cholesterol (59 mg/dL) Plan Patient was informed and verbally consented to the use of an ambient scribe for clinic note documentation during this visit. 1. Obesity The patient is advised to continue weight management strategies, including dietary modifications and increased physical activity, to address obesity. 2. Hypertension The patient's blood pressure is well-controlled with atenolol, and continued monitoring is recommended. 3. Hypercholesterolemia The patient is currently taking rosuvastatin to manage hypercholesterolemia, with an LDL goal of less than 70 mg/dL. 4. Impaired Glucose Tolerance The patient is advised to manage impaired glucose tolerance through diet and exercise, with a follow-up blood sugar test in three months. 5. Coronary Artery Disease The patient is advised to continue aspirin therapy and monitor cardiac status, with no immediate interventions required for coronary artery disease. 6. Mitral Regurgitation The patient is advised to monitor mitral regurgitation with regular follow-ups, as no surgical intervention is currently indicated. 7. Dilated Ascending Aorta The patient is advised to monitor the dilated ascending aorta with regular imaging, as no surgical intervention is currently indicated. 8. Thrombocytopenia The patient is advised to monitor thrombocytopenia with regular blood work, as no immediate intervention is required. 9. Hiatal Hernia The patient is advised to manage hiatal hernia symptoms with dietary modifications and monitor for any changes. 10. Allergic Rhinitis The patient is advised to use uamp-izu-grolzjc allergy medications such as Ana or Claritin to manage symptoms of allergic rhinitis. Discussion Notes During the visit, I discussed with the patient the importance of managing his chronic conditions, including obesity, hypertension, hypercholesterolemia, and impaired glucose tolerance. We reviewed his recent echocardiogram and blood work results, emphasizing the need for regular monitoring of his cardiac status and blood sugar levels. I advised the patient on lifestyle modifications, such as dietary changes and increased physical activity, to improve his overall health. We also discussed the management of his allergic rhinitis with jxhj-uxp-zffoelh medications and the importance of staying up-to-date with vaccinations. Patient Instructions - Continue taking prescribed medications: rosuvastatin, atenolol, and aspirin. - Follow a balanced diet and engage in regular physical activity to manage weight and blood sugar levels. - Use pfbz-dff-xitptbg allergy medications like Ana or Claritin as needed. - Schedule a follow-up appointment for blood sugar testing in three months. - Stay up-to-date with vaccinations, including shingles, pneumonia, flu, and COVID-19. Orders: Orders Complete Blood Count Auto Diff 3 Months R73.02 - Impaired glucose tolerance (oral) Comprehensive Met. Panel 3 Months R73.02 - Impaired glucose tolerance (oral) Free T4 (Free Thyroxine) 3 Months R73.02 - Impaired glucose tolerance (oral) Thyroid Stimulating Hormone 3 Months R73.02 - Impaired glucose tolerance (oral) Lipid Panel 3 Months E78.00 - Pure hypercholesterolemia, unspecified, R73.02 - Impaired glucose tolerance (oral) Vitamin B12 and Folate 3 Months R73.02 - Impaired glucose tolerance (oral) Hemoglobin A1c 3 Months R73.02 - Impaired glucose tolerance (oral) Medications: Refilled rosuvastatin 5 mg PO DAILY 90 tabs 2RF E78.00 - Pure hypercholesterolemia, unspecified
--- OUTSIDE RECORDS SUMMARY | 2025-03-17 15:51 | XMS_ITS | Patient Health Record ---
Author Organization [facility] Address [address] [place] [address] Care Team Providers Care Dairy Husbandry Worker Name Role Phone Adebayo Plunkett MD Primary Care Provider Marcin Leon [phone] Allergies No Known Allergies Results Component Value Reference Range Notes Pathology (Not yet reviewed by provider) Interpretation: Performing Lab:[facility], [address] [place] [id number] Notes/Report: Reason For Referral No Information Medications [...] Status Risk Notes Problem Colon cancer screening (434818949) Colon cancer screening (Z12.11) Active confirmed Problem Diverticular disease of colon (820489517) Diverticulosis of large intestine without perforation or abscess without bleeding (K57.30) Active confirmed Problem Gastroesophageal reflux disease (390293398) Gastroesophageal reflux disease (K21.9) Active confirmed Problem Abnormal findings diagnostic imaging of liver and biliary tract (865134841) Abnormal CT of liver (R93.2) Active confirmed Problem Barium swallow abnormal (895945188) Abnormal barium swallow (R93.3) Active confirmed Problem Chronic cough (31108457) Chronic cough (R05.3) Active confirmed Encounters Encounter Location Date Provider Diagnosis [facility] [address] [place] [id number] 05/20/2024 Marcin Jones Colon cancer screeni ng [...] Insured Coverage Start Date Coverage End Date [facility] [address] [place] [address] [id number] SWAPNA BOYD Self - patient is the insured Medical (General) History Medical History History ICD Code Hypertension Denies IN,DM,CVA,Lung disease,renal dise ase 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
== END 2025-03-17 13:46 | disposition home or self-care (01) ==
LOC: HO.HMCH 12:51
PROVIDERS: PCP Internal Medicine; Visit Provider Internal Medicine
DX: I25.10 Atherosclerotic heart disease of native coronary artery without angina pectoris (principal); E78.00 Pure hypercholesterolemia, unspecified; Z68.36 Body mass index [BMI] 36.0-36.9, adult; E66.9 Obesity, unspecified; I10 Essential (primary) hypertension; R73.02 Impaired glucose tolerance (oral); K21.9 Gastro-esophageal reflux disease without esophagitis

== ENCOUNTER → 2025-03-17 12:50 | Outpatient (BNVA) | payer MEDICARE, SELFPAY | PROVIDERS: PCP Internal Medicine; Visit Provider Internal Medicine | DX: I25.10 Atherosclerotic heart disease of native coronary artery without angina pectoris (principal); E78.00 Pure hypercholesterolemia, unspecified; I10 Essential (primary) hypertension; R73.02 Impaired glucose tolerance (oral); E66.9 Obesity, unspecified; K21.9 Gastro-esophageal reflux disease without esophagitis; R73.01 Impaired fasting glucose; J30.9 Allergic rhinitis, unspecified; Z68.36 Body mass index [BMI] 36.0-36.9, adult | CPT/HCPCS: 96127; 99212 ==

== ENCOUNTER 2025-06-29 10:10 | Outpatient (AMB) | payer MEDICARE, SELFPAY ==
--- OUTSIDE RECORDS SUMMARY | 2024-05-20 03:40 | XMS_ITS ---
Author Organization [facility] Address [address] [place] [address] Care Team Providers Care Substation Wireman Name Role Phone Po Adebayo POLANCO Primary Care Provider Marcin Leon [phone] REASON FOR VISIT screening, abn barium swallow,chronic cough Problems Problem Type SNOMED Code ICD Code Onset Dates Problem Status W/U Status Risk Notes Problem Diverticular disease of colon (296113823) Diverticulosis of large intestine without perforation or abscess without bleeding (K57.30) Active confirmed Problem Gastroesophageal reflux disease (746156615) Gastroesophageal reflux disease (K21.9) Active confirmed Encounters Encounter Location Date Provider Diagnosis [facility] [place] [address] [place], [place] [id number] 05/20/2024 Marcin Jones Colon cancer screeni ng Z12.11 ; Colon polyps K63.5 ; Diverticulosis of large intestine without perforation or abscess without bleeding K57.30 ; Other hemorrhoids K64.8 ; Gastroesophageal reflux disease K21.9 ; Hiatal hernia K44.9 ; Abn findings-GI tract R93.3 and Chronic cough R05.3 Assessments Encounter Date Diagnosis (ICD Code) Assessment Notes Treatment Notes Treatment Clinical Notes Section Notes 05/20/2024 Colon cancer screening (ICD-10 - Z12.11) 05/20/2024 Colon polyps (ICD-10 - K63.5) 05/20/2024 Diverticulosis of large intestine without perforation or abscess without bleeding (ICD-10 - K57.30) 05/20/2024 Other hemorrhoids (ICD-10 - K64.8) 05/20/2024 Gastroesophageal reflux disease (ICD-10 - K21.9) 05/20/2024 Hiatal hernia (ICD-10 - K44.9) 05/20/2024 Abn findings-GI tract (ICD-10 - R93.3) 05/20/2024 Chronic cough (ICD-10 - R05.3) Plan Of Treatment No Information Progress Notes * SWAPNA BOYDDOB:1945 (79 yo M)Acc No.[id number]:05/20/2024 EGD and COL/MAC Patient: SWAPNA JAFFE Provider: Debbie Jones MD :1945 A ge:78 Y S ex:Male Date:05/20/2024 Address:[address] [place], [place] [id number] Pcp:Adebayo Plunkett MD Subjective: * Chief Complaints: * S creening, abn barium swallow,chronic cough Assessment: * Assessment: 1. C olon cancer screening - Z12.11 (Primary) 2 . C olon polyps - K63.5? 3. D iverticulosis of large intestine without perforation or abscess without bleeding - K57.30 4 . O ther hemorrhoids - K64.8 5 . G astroesophageal reflux disease - K21.9 6 . H iatal hernia - K44.9 7 . A bn findings-GI tract - R93.3 8 . C hronic cough - R05.3 Plan: * Procedure Codes: 4 5385 LESION REMOVAL [id number] INTRVL 3+YRS PTS CLNSCP [id number] RCMND FLW-UP 10 YRS DOCD, Modifiers: 1P 13268 UPPER GI ENDOSCOPY, BIOPSY Billing Information: * Procedure Codes: 76111 LESION REMOVAL COLONOSCOPY. 0529F INTRVL 3+YRS PTS CLNSCP DOCD. 0528F RCMND FLW-UP 10 YRS DOCD. Modifiers: 1P 50369 UPPER GI ENDOSCOPY, BIOPSY. * The named appointment provid er may or may not be the originator of this progress note, and it is not deemed complete until electronically signed by the appointment provider. Sign off status: Pending * Provider: Debbie Jones MD Date: 07/20/2023 Generated for Francisco J aponte/Evaristo/Yuri on: 08/30/2024 11:10 AM EST
--- NOTE | 2025-06-29 10:17 | AM.OFFWIN_ITS ---
Intake Vital Signs 3 06/29/25 10:18 Height 5 ft 6 in Weight 235 lb BMI 37.9 BP 138/74 Blood Pressure Location Lt brachial Position Sitting Pulse 67 Pulse Source Pulse Oximeter Temp 98.6 F Temp Source Oral Pulse Oximetry (%) 97 Oxygen Delivery Method Room Air Intake Visit Reasons: EP Swelling on jaw line Intake Note: Patient presents c/o right low jaw pain & swelling x2 days. Patient has partial plate & thinks it irritated his gums and spread. Patient Tobacco Use Status: Former Tobacco user Allergies No Known Allergies Allergy (Verified 06/29/25 10:20) Medication List - Last Reconciled 06/29/25 by Camila Dan MD aspirin 81 mg PO DAILY atenolol 50 mg PO DAILY 90 days multivitamin 1 tab PO DAILY naproxen sodium (Aleve) 220 mg PO DAILY PRN omega 2-kwk-cfc-fish oil 1,000 (120-180) mg (Fish Oil) 1 cap PO DAILY rosuvastatin 5 mg PO DAILY HPI EP Swelling on jaw line 2 HPI0 Details History of Present Illness The patient is a 79 year old male presenting with right-sided submandibular swelling. Submandibular cellulitis: - The patient reports the onset of swell ing on the right side of his chin area since the previous day. - He initially experienced what he belie yodit to be a toothache, which has since resolved. - The current swelling is painful. - The issue is thought to be secondary t o an infection originating from gum irritation caused by an ill-fitting denture. Ill-fitting denture: - The patient wears a denture plate whic h he describes as mobile, causing irritation to his gums. - He has not been wearing the denture si nce the previous day due to the problem. Problem List - Submandibular cellulitis - Ill-fitting denture Plan - A prescription for Augmentin will be s ent to the patient's pharmacy to treat the suspected bacterial infection and prevent an abscess. - He was instructed to take the antibiot ic for at least 7 days and may stop if the issue resolves, otherwise he should complete the full 10-day course. - He was advised not to wear his denture as it may be causing the irritation. 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 Sister Breast cancer Son In good health Social History Housing: House Alcohol intake: current Alcohol intake frequency: does not drink Alcohol type: beer Comment: once a week 1 beer Patient Tobacco Use Status: Former Tobacco user Tobacco use type: Cigarette Years Smoked: 34 years old stopped e-Cigarette/Vaping Use: Never Used Second Hand Smoke Exposure: No service: No Current occupational status: retired Current occupation: rt hand Cognitive needs: No Hearing needs: No Vision needs: Yes Physical Exam Vital Signs: Last Vital Signs Temp 98.6 F 06/29/25 10:18 Pulse 67 06/29/25 10:18 BP 138/74 06/29/25 10:18 Pulse Ox 97 06/29/25 10:18 Oxygen Delivery Method Room Air 06/29/25 10:18 BMI result Body Mass Index 37.9 HEENT Head images: 2 1. site of swelling and pain, no fluctuation, mild skin erythema + Assessment & Plan Assessment & Plan (1) Submandibular gland infection: Code(s): K11.20 - Sialoadenitis, unspecified Plan Problem List - Submandibular cellulitis - Ill-fitting denture Plan - A prescription for Augmentin will be sent to the patient's pharmacy to treat the suspected bacterial infection and prevent an abscess. - He was instructed to take the antibiotic for at least 7 days and may stop if the issue resolves, otherwise he should complete the full 10-day course. - He was advised not to wear his denture as it may be causing the irritation. Medications: New 2 amoxicillin-pot clavulanate 875-125 mg 1 tab PO BID 20 tabs 0RF 10 days Coding Level of Care Code Est Pt Level 3 (56582) Diagnoses Submandibular gland infection K11.20
[2025-06-29 10:18] VITALS: BP 138/74; PULSE 67; TEMP 37; O2SAT 97; BMI 37.9
--- OUTSIDE RECORDS SUMMARY | 2025-06-29 11:11 | XMS_ITS | Patient Health Record ---
Author Organization [facility] Address [address] [place] [id number] Care Team Providers Care Sql Server Dba Developer Name Role Phone Adebayo Plunkett MD Primary Care Provider Marcin Leon [phone] Allergies No Known Allergies Reason For Referral No Information Medications Medication SIG (Take, Route, Fr equency, Duration) Notes Start Date End Date Status Multivitamin - Tablet 1 tablet Orally On ce a day; Duration: 30 day(s) Active Atenolol 50 MG Tablet TAKE 1 TABLET BY M OUTH EVERY DAY Oral; Duration: 90 Active Fish Oil Active Aleve 220 MG Tablet 1 tablet with food o r milk as needed Orally every 12 hrs Activ e Social History Tobacco Use: Social History Observation Description Date Details (start date - stop date) Former Smoker NA - NA Social History Drugs/Alcohol: Social Info Question Answer Notes Alcohol Screen Did you have a drink containing alcohol in the past year? Yes How often did you have a drink containing alcohol in the past year? Monthly or less (1 point) How many drinks did you have on a typical day when you were drinking in the past year? 1 or 2 drinks (0 point) How often did you have 6 or more drinks on one occasion in the past year? Never (0 point) Points 1 Interpretation Negative Tobacco Use: Social Info Question Answer Notes Tobacco Use/Smoking Patient is a former smoker How long has it been since you last smoked? > 10 years Additional Details Category Social Info Options Details Miscellaneous: Marital status: 55 years Occupation: retired Section Notes: quit smoking age 34 occasional beer Problems Problem Type SNOMED Code ICD Code Onset Dates Problem Status W/U Status Risk Notes Problem Colon cancer screening (715123460) Colon cancer screening (Z12.11) Active confirmed Problem Diverticular disease of colon (282541002) Diverticulosis of large intestine without perforation or abscess without bleeding (K57.30) Active confirmed Problem Gastroesophageal reflux disease (098248674) Gastroesophageal reflux disease (K21.9) Active confirmed Problem Abnormal findings diagnostic imaging of liver and biliary tract (686389755) Abnormal CT of liver (R93.2) Active confirmed Problem Barium swallow abnormal (297591210) Abnormal barium swallow (R93.3) Active confirmed Problem Chronic cough (99230312) Chronic cough (R05.3) Active confirmed Plan Of Treatment Pending Test Test Name Order Date BUN 01/28/2024 MRI ABD W&WO CONTRAST 01/28/2024 Creatinine 01/28/2024 Pathology 05/20/2024 Future Test Test Name Order Date UPPER GI ENDOSCOPY 01/28/2024 COLONOSCOPY 01/28/2024 Insurance Providers Payer Name Payer Address Payer Phone Subscriber Number Group Number Insured Name Patient Relationship to Insured Coverage Start Date Coverage End Date [facility] [address] [place] [address] [phone] [id number] SWAPNA BOYD Self - patient is the insured Medical (General) History Medical History History ICD Code Hypertension Denies [place],DM,CVA,Lung disease,renal dise ase 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
== END 2025-06-29 11:03 | disposition home or self-care (01) ==
PROVIDERS: PCP Internal Medicine; Visit Provider Internal Medicine
DX: K11.20 Sialoadenitis, unspecified (principal)

== ENCOUNTER → 2025-06-29 10:10 | Outpatient (BNVA) | payer MEDICARE, SELFPAY | PROVIDERS: PCP Internal Medicine; Visit Provider Internal Medicine | DX: K11.20 Sialoadenitis, unspecified (principal) | CPT/HCPCS: 99212 ==

== ENCOUNTER 2025-07-07 10:48 | Outpatient (AMB) | payer MEDICARE, SELFPAY ==
--- OUTSIDE RECORDS SUMMARY | 2024-05-20 03:40 | XMS_ITS ---
Author Organization [facility] Address [address] [place] [address] Care Team Providers Care Char Conveyor Tender Cellar Name Role Phone Po Adebayo POLANCO Primary Care Provider Marcin Leon [phone] REASON FOR VISIT screening, abn barium swallow,chronic cough Problems Problem Type SNOMED Code ICD Code Onset Dates Problem Status W/U Status Risk Notes Problem Diverticular disease of colon (184448383) Diverticulosis of large intestine without perforation or abscess without bleeding (K57.30) Active confirmed Problem Gastroesophageal reflux disease (385294056) Gastroesophageal reflux disease (K21.9) Active confirmed Encounters Encounter Location Date Provider Diagnosis [facility] [place] [address] [place], [place] [phone] 05/20/2024 Marcin Jones Colon cancer screeni ng [...] Notes * SWAPNA BOYDDOB:1945 (79 yo M)Acc No.[id number]:05/20/2024 EGD and COL/MAC Patient: SWAPNA JAFFE Provider: Debbie Jones MD :1945 A ge:78 Y S ex:Male Date:05/20/2024 Address:[address] [place], [place] [phone] Pcp:Adebayo Plunkett MD Subjective: * Chief Complaints: [...] * Procedure Codes: 4 5385 LESION REMOVAL [id number] INTRVL 3+YRS PTS CLNSCP [id number] RCMND FLW-UP 10 YRS DOCD, Modifiers: 1P 17252 UPPER GI ENDOSCOPY, BIOPSY Billing Information: * Procedure Codes: 49411 LESION REMOVAL COLONOSCOPY. 0529F INTRVL 3+YRS PTS CLNSCP DOCD. 0528F RCMND FLW-UP 10 YRS DOCD. Modifiers: 1P 24191 UPPER GI ENDOSCOPY, BIOPSY. * The named appointment provid er may or may not be the originator of this progress note, and it is not deemed complete until electronically signed by the appointment provider. Sign off status: Pending * Provider: Debbie Jones MD Date: 07/20/2023 Generated for Francisco J aponte/Evaristo/Yuri on: 1 12:13 PM EST
--- NOTE | 2025-07-07 10:53 | A.OFFPC_ITS ---
Vital Signs 07/07/25 10:56 Height 5 ft 6 in Weight 234 lb BMI 37.8 BP 136/88 Blood Pressure Location Lt brachial Position Sitting Pulse 74 Pulse Source Pulse Oximeter Pulse Oximetry (%) 98 Oxygen Delivery Method Room Air Intake Visit Reasons: 3 month f/u Allergies No Known Allergies Allergy (Verified 07/07/25 10:56) Tobacco use date assessed: 03/17/25 Fall risk assessment: No Falls in past year Last assessed Fall Risk: 07/07/25 Dental Screening Dental Screen Date: 12/28/24 HPI HPI Comments History of Present Illness Details History of Present Illness The patient is a 79-year-old obese male presenting for a follow-up on his chronic medical conditions. His past medical history is significant for hypertension, hypercholesterolemia, impaired glucose tolerance, coronary artery disease, GERD, and bilateral carpal tunnel syndrome for which he underwent a release procedure in 2021. In June 2023, the patient went to an urgent care center for swelling and pain in his jaw, which he thought might be related to his denture. He was diagnosed with submandibular sialadenitis and was prescribed an antibiotic. He denies any associated congestion, ear pain, eye pain, or headaches at that time. Recent lab work from March showed an LDL of 59 mg/dL, which was an improvement from a previous value of 175 mg/dL. At that time, his blood sugar was 109 mg/dL with a hemoglobin A1c of 6.0%, and his electrolytes and renal and liver function were normal. Blood work from August noted a mild thrombocytopenia. His cardiac history includes a known heart murmur, and a past echocardiogram showed valvular leakage, which is being monitored by a nurse aide evaluator. He missed a recent cardiology appointment but has rescheduled it for August. Regarding health maintenance, the patient has received his flu, shingles, tetanus, and pneumonia vaccinations. He has a colonoscopy scheduled for [address] scan of the chest scheduled for July. Health Maintenance The patient is up to date on his flu, shingles, tetanus, and pneumonia vaccines. He was reminded that caution is still needed for the flu as the vaccine is not a perfect match for the current variant. He is scheduled for a colonoscopy in 2023 and will have a complete physical exam in December. Social History - Exercise: The patient reports being in active lately, stating he does too much sitting during the winter. - He owns a stationary bike, an elliptic al-type machine, and weights but reports using them inconsistently. - Nutritional Intake: The patient was co unseled to increase his intake of green leafy vegetables and decrease consumption of meat (pork, beef) and carbohydrates to facilitate weight loss. - Weight Management: The patient reports a recent weight gain from 230 to 235 pounds. Results - Labs (March 2025): - Blood sugar: 109 mg/dL - Hemoglobin A1c: 6.0% - LDL Cholesterol: 59 mg/dL (improved fr om 175 mg/dL) - Electrolytes and renal function were n ormal. - Liver function tests were normal. - Labs (August 2024): - CBC: Normal with mild thrombocytopenia . - Imaging: - Echocardiogram (prior): Showed valvula r leakage. COUNTS INCLUDE [facility] BEDS AT [facility] Medical History Chronic cough Colon cancer screening Dysphagia Arthritis Knee buckling Asthmatic bronchitis Cough Impaired glucose tolerance Annual physical exam Hypercholesterolemia Thrombocytopenia Vitamin D deficiency Obesity (BMI 30-39.9) Hypertension Surgical History H/O colonoscopy History of cholecystectomy History of inguinal hernia repair History of excision of pilonidal cyst Family History Father Cancer Liver cancer Mother No problems noted. Sister Breast cancer Son In good health Social History Housing: House Alcohol intake: current Alcohol intake frequency: does not drink Alcohol type: beer Comment: once a week 1 beer Patient Tobacco Use Status: Former Tobacco user Tobacco use type: Cigarette Years Smoked: 34 years old stopped e-Cigarette/Vaping Use: Never Used Second Hand Smoke Exposure: No service: No Current occupational status: retired Current occupation: rt hand Cognitive needs: No Hearing needs: No Vision needs: Yes Questionnaire Thrive Questionnaire Date Thrive assessed: 11/11/24 I am a: Patient What is your living situation today?: I have a steady place to live Within the past 12 months, did the food you bought not last and you didn't have the money to get more?: I choose not to answer this question Within the past 12 months, did you worry whether your food would run out before you got money to buy more?: Never true Do you have trouble paying for medicines?: No Do you have trouble getting transportation to medical appointments?: No Do you have trouble paying your heating and electricity bill?: No Do you have trouble taking care of your child, family member or friend?: No Do you have trouble with day-to-day activities such as bathing, preparing meals, shopping, managing finances, etc.?: No Are you currently unemployed and looking for a job?: I choose not to answer this question Are you interested in more education?: No Currently or been in a relationship where the following occur: No concerns reported THRIVE Score: 0 ALEIDA-7 AMB Questionnaire ALEIDA-7 Date ALEIDA - 7 assessed: 12/28/24 Source: Developed by Drs. Marcin Waters, Ekaterina Pantoja, Alfie Colorado and colleagues, with an educational sushil from [employer]. Review of Systems Narrative Review of Systems - HEENT: Reports recent jaw swelling and pain, which has resolved. - Denies current pain, congestion, ear pain, eye pain, and headaches. - Cardiovascular: Denies chest pains. - Respiratory: Reports breathing has been fine. - Gastrointestinal: Denies abdominal pain and diarrhea. - Genitourinary: Reports urination is fine. Physical exam (Primary Care) Vital Signs: Last Vital Signs Pulse 74 07/07/25 10:56 BP 136/88 07/07/25 10:56 Pulse Ox 98 07/07/25 10:56 Oxygen Delivery Method Room Air 07/07/25 10:56 BMI result Body Mass Index 37.8 Tobacco/Smoking Status: Tobacco use Status Tobacco use date assessed 03/17/25 07/07/25 10:54 Patient Tobacco Use Status Former Tobacco user 07/07/25 10:54 Tobacco use type Cigarette 07/07/25 10:54 e-Cigarette/Vaping Use Never Used 07/07/25 10:54 Thrive Assessment: Date of Thrive Assessment Date Thrive assessed 11/11/24 07/07/25 10:54 Currently or been in a relationship where the following occur: No concerns reported Narrative Physical Exam - Constitutional: General appearance is of an obese male. - Cardiovascular: Auscultation reveals a heart murmur. - Neurological: A brief cognitive evaluation assessing memory and spelling was performed and was intact. Const General: alert; No acute distress Eyes Conjunctivae: conjunctivae normal Resp Auscultation: clear to auscultation bilaterally Cardio Rate: regular rate Rhythm: regular rhythm GI Inspection: Yes normal to inspection Extrem General: Yes normal to inspection and No edema Coding Level of Care Code Est Pt Level 4 (47032) Add On Problem Visit Only Diagnoses Obesity (BMI 30-39.9) E66.9 Essential hypertension I10 Hypertension type: essential hypertension Coronary artery disease I25.10 Hypercholesterolemia E78.00 Submandibular gland infection K11.20 GERD (gastroesophageal reflux disease) K21.9 Pulmonary nodules R91.8 Assessment & Plan Assessment & Plan (1) Obesity (BMI 30-39.9): Code(s): E66.9 - Obesity, unspecified Category: Medical Plan: Diet and exercise (2) Hypertension: Code(s): I10 - Essential (primary) hypertension Category: Medical Qualifiers: Hypertension type: essential hypertension Qualified Code(s): I10 - Essential (primary) hypertension Plan: Continue with blood pressure medication. Decrease salt intake and exercise on atenolol 50 mg once a day (3) Coronary artery disease: Code(s): I25.10 - Atherosclerotic heart disease of [place] coronary artery without angina pectoris Category: Medical Plan: Control the cholesterol, weight, blood pressure, patient is on aspirin 81 mg once a day (4) Hypercholesterolemia: Code(s): E78.00 - Pure hypercholesterolemia, unspecified Category: Medical Plan: Avoid fried foods, chicken skin, eggs, butter margarine, pastries and meat. Be it pork or beef they have a lot of cholesterol LDL goal of less than 70 and triglyceride of less than 150 March 2025 last blood work on rosuvastatin 5 mg once a day (5) Submandibular gland infection: Code(s): K11.20 - Sialoadenitis, unspecified Category: Medical Plan: Patient was seen in the urgent center and was given an antibiotic (6) GERD (gastroesophageal reflux disease): Code(s): K21.9 - Gastro-esophageal reflux disease without esophagitis Category: Medical Plan: Avoid the foods that causes that usually spicy foods, tomato products, juices, coffee, soda and foods that your sensitive to. After eating do not lie down, allow 3-4 hours before in lie down. And keep the head of bed above 30 degrees to avoid the acid from going up. (7) Pulmonary nodules: Comment: June 2024 CT scan Code(s): R91.8 - Other nonspecific abnormal finding of lung field Category: Medical Plan: Patient has a scheduled cat scan in July Plan Plan Patient was informed and verbally consented to the use of an ambient scribe for clinic note documentation during this visit. 1. Submandibular Sialadenitis The patient was recently seen at an urgent care center for jaw swelling and was prescribed an antibiotic. He reports the pain and swelling have resolved. He was advised to complete the course of antibiotics and was counseled that a potential side effect is diarrhea, for which he can take probiotics. 2. Hypercholesterolemia The patient's LDL cholesterol has improved to 59 mg/dL, which is below the goal of less than 70 mg/dL. He will continue taking rosuvastatin 5 mg once a day. Lifestyle modifications focusing on diet and exercise were reinforced. 3. Hypertension He will continue his current regimen of atenolol 50 mg once a day. The importance of maintaining blood pressure control was emphasized, particularly given his valvular heart disease. 4. Coronary Artery Disease The plan is to continue aspirin 81 mg once a day. The patient has a CT scan of the chest scheduled in July. 5. Valvular Heart Disease The patient has a known heart murmur and valvular leakage, which is being monitored by cardiology. No acute intervention is needed unless symptoms become severe. He has a follow-up appointment scheduled with his nurse aide evaluator in August. 6. Impaired Glucose Tolerance His hemoglobin A1c is 6.0%. The patient was strongly advised to focus on weight loss through diet (low carbohydrate) and exercise to prevent progression to diabetes. 7. Obesity The patient's weight has increased to 235 pounds. He received extensive counseling on the need for weight loss, with recommendations for dietary changes (more vegetables, less meat and carbohydrates) and resumption of a daily exercise routine using his home equipment. Discussion Notes I discussed the patient's recent urgent care visit for jaw swelling and his treatment with antibiotics, advising him to complete the course and to use probiotics if he develops diarrhea. I reviewed his recent labs, congratulating him on the significant improvement in his LDL cholesterol and confirming he should continue rosuvastatin. We had an extensive discussion about his lifestyle, particularly focusing on his recent weight gain and inactivity. I strongly emphasized the critical need to resume daily exercise, even for short durations, and to make dietary changes to promote weight loss, which is essential for managing his prediabetes, hypertension, and overall cardiovascular health. We confirmed his upcoming appointments, including a chest CT in July, a cardiology follow-up in August, and his next complete physical exam in December. I explained that while his flu shot is helpful, he should still be cautious in large groups as the current flu variant is not fully covered by the vaccine. Patient Instructions - Finish the entire course of the antibiotic you were given for your jaw swelling. - If you develop diarrhea from the antibiotic, you can take probiotics. - Continue taking your daily medications, including atenolol for blood pressure, rosuvastatin for cholesterol, and aspirin. - It is very important to lose weight. - Change your diet to include more green leafy vegetables and less meat (like pork and beef) and carbohydrates (like bread and pasta). - You must exercise every day. - Start by using your stationary bike or skiing machine for 5-10 minutes each day. - Go to your scheduled CT scan of the chest in July. - Make sure to attend your follow-up appointment with your heart doctor in August. - Your next complete physical exam here is scheduled for December. - Be careful in large groups of people to avoid getting sick, as the flu is spreading.
[2025-07-07 10:56] VITALS: BP 136/88; PULSE 74; O2SAT 98; BMI 37.8
--- OUTSIDE RECORDS SUMMARY | 2025-07-07 12:13 | XMS_ITS | Patient Health Record ---
Author Organization [facility] Address [address] [place] [phone] Care Team Providers Care Kardex Clerk Name Role Phone Adebayo Plunkett MD Primary Care Provider Marcin Leon [phone] Allergies No Known Allergies Reason For Referral [...] Status Risk Notes Problem Colon cancer screening (932583250) Colon cancer screening (Z12.11) Active confirmed Problem Diverticular disease of colon (024153016) Diverticulosis of large intestine without perforation or abscess without bleeding (K57.30) Active confirmed Problem Gastroesophageal reflux disease (367039817) Gastroesophageal reflux disease (K21.9) Active confirmed Problem Abnormal findings diagnostic imaging of liver and biliary tract (607564353) Abnormal CT of liver (R93.2) Active confirmed Problem Barium swallow abnormal (750953033) Abnormal barium swallow (R93.3) Active confirmed Problem Chronic cough (50445388) Chronic cough (R05.3) Active confirmed Plan Of Treatment Pending Test Test Name Order Date BUN 01/28/2024 MRI ABD W&WO CONTRAST 01/28/2024 Creatinine 01/28/2024 Pathology 05/20/2024 Future Test Test Name Order Date UPPER GI ENDOSCOPY 01/28/2024 COLONOSCOPY 01/28/2024 Insurance Providers Payer Name Payer Address Payer Phone Subscriber Number Group Number Insured Name Patient Relationship to Insured Coverage Start Date Coverage End Date [facility] [address] [place] [address] [id number] SWAPNA BOYD Self - patient is the insured Medical (General) History Medical History History ICD Code Hypertension Denies [place],DM,CVA,Lung disease,renal dise ase 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
== END 2025-07-07 11:24 | disposition home or self-care (01) ==
LOC: HO.HMCH 10:49
PROVIDERS: PCP Internal Medicine; Visit Provider Internal Medicine
DX: E66.9 Obesity, unspecified (principal); I10 Essential (primary) hypertension; I25.10 Atherosclerotic heart disease of native coronary artery without angina pectoris; E78.00 Pure hypercholesterolemia, unspecified; K11.20 Sialoadenitis, unspecified; K21.9 Gastro-esophageal reflux disease without esophagitis; R91.8 Other nonspecific abnormal finding of lung field

== ENCOUNTER → 2025-07-07 10:48 | Outpatient (BNVA) | payer MEDICARE, SELFPAY | PROVIDERS: PCP Internal Medicine; Visit Provider Internal Medicine | DX: Z09 Encounter for follow-up examination after completed treatment for conditions other than malignant neoplasm (principal); K11.20 Sialoadenitis, unspecified; I38 Endocarditis, valve unspecified; I10 Essential (primary) hypertension; I25.10 Atherosclerotic heart disease of native coronary artery without angina pectoris; E66.9 Obesity, unspecified; E78.00 Pure hypercholesterolemia, unspecified; K21.9 Gastro-esophageal reflux disease without esophagitis; R73.02 Impaired glucose tolerance (oral); Z87.891 Personal history of nicotine dependence | CPT/HCPCS: 99212 ==